=== PATIENT | female | born 1945 | race Caucasian/White ===

== ENCOUNTER → 2017-04-05 11:34 | Outpatient (CLI) | payer MEDICARE, BC, SELFPAY ==
[2017-04-05 12:56] LABS: Absolute Lymphocyte Count 4.33 X10^3/ul (0.83-4.51); Absolute Neutrophil Count 7.5 X10^3/uL (2.0-7.7); Basophil# 0.29 X10^3/uL; Basophil% 2.1 % (0-1); Eosinophil# 0.41 X10^3/uL; Hematocrit 44.7 % (37-47); Hemoglobin 14.8 g/dl (12.0-15.0); Lymphocyte # 4.33 X10^3/ul (4.0); Mean Corp Hgb Conc 33.1 g/gl (32-36); Mean Corpuscular Hgb 29.1 pg (27.0-32.0); Mean Corpuscular Volume 87.8 fL (81-99); Monocyte# 0.99 X10^3/uL; Monocyte% 7.3 % (0-10); Neutrophil # 7.46 X10^3/uL (2.7-7.7); Neutrophil % 55.3 % (47-70); Platelet Count 268 K/mm3 (150-450); RBC Distribution Width CV 16.1 % (11.6-14.6); RBC Distribution Width SD 51.4 fl (35.1-43.9); Red Blood Count 5.09 M/mm3 (4.2-5.4); White Blood Count 13.5 K/mm3 (4.4-11.0)
[2017-04-05 12:57] LABS: POSITIVE COUNT NO; POSITIVE DIFFERENTIAL NO; POSITIVE MORPHOLOGY NO
[2017-04-05 13:23] LABS: Vitamin D,25 Hydroxy 8.4 ng/mL (19.95-100.01)
[2017-04-05 13:24] LABS: ALB/GLOB Ratio 0.9 RATIO (0.9-2.4); AST(SGOT) 29 U/L (15-37); Alanine Aminotransfer ALT/SGPT 29 U/L (13-56); Albumin, Serum 3.8 g/dL (3.2-5.0); Alkaline Phosphatase 68 U/L (45-117); Anion Gap 8 (5-15); BUN 15 mg/dL (7-18); BUN/Creat Ratio 18.4 RATIO (10-20); Calcium,Total 9.3 mg/dL (8.5-10.1); Chloride 106 mmol/L (98-107); Creatinine, Serum 0.81 mg/dL (0.55-1.02); EST Glomerular Filtration Rate 73 mL/min (>60); Est Glom Filt Rate - Afr Amer 89 mL/min (>60); Globulin 4.2 g/dL (2.2-4.2); Glucose 138 mg/dL (74-106); Sodium Level 140 mmol/L (136-145); Thyroid Stim Hormone (TSH) 0.91 uIU/mL (0.358-3.74)
== END ==
PROVIDERS: Family Provider Family Medicine Geriatric Medicine; PCP Family Medicine Geriatric Medicine; Visit Provider Family Medicine Geriatric Medicine
DX: E11.9 Type 2 diabetes mellitus without complications (principal); E55.9 Vitamin D deficiency, unspecified; I10 Essential (primary) hypertension
CPT/HCPCS: 36415; 80053; 82306; 84443; 85025

== ENCOUNTER → 2017-06-02 16:15 | Outpatient (CLI) | payer MEDICARE, BC, SELFPAY ==
--- NOTE | 2017-06-02 16:17 | RAD_ITS ---
STUDY: X-RAY - LEFT FOOT CLINICAL: Pain, large plantar wart. TECHNIQUE: 3 view(s) of the foot. COMPARISON: None. FINDINGS: There is a small posterior calcaneal enthesophyte. Normal visualized subtalar, talonavicular, calcaneocuboid, tarsal and tarsometatarsal articulations. Normal metatarsi. Normal metatarsophalangeal joint of the great toe. Normal tibial and fibular sesamoid bones. Normal interphalangeal joint of the great toe. Normal phalanges of the great toe. Normal second through fifth metatarsophalangeal joints. Normal interphalangeal joints and phalanges of the lesser toes. There is a small soft tissue calcification at the lateral aspect of the fifth middle phalanx on the oblique view. RAD/Foot min 3 Views IMPRESSION: Small soft tissue calcification of the distal lateral forefoot. Small posterior calcaneal enthesophyte. Electronically Signed: Balbir Plata MD at 15:05 EDT Tel , Service support ,
== END ==
PROVIDERS: Family Provider Family Medicine Geriatric Medicine; PCP Family Medicine Geriatric Medicine; Visit Provider Family Medicine Geriatric Medicine
DX: M79.672 Pain in left foot (principal); B07.0 Plantar wart
CPT/HCPCS: 73630

== ENCOUNTER → 2017-07-07 11:40 | Outpatient (CLI) | payer MEDICARE, BC, SELFPAY | PROVIDERS: Family Provider Family Medicine Geriatric Medicine; PCP Family Medicine Geriatric Medicine; Visit Provider Family Medicine Geriatric Medicine | DX: E11.9 Type 2 diabetes mellitus without complications (principal); E55.9 Vitamin D deficiency, unspecified; I10 Essential (primary) hypertension ==

== ENCOUNTER → 2017-07-08 13:14 | Outpatient (CLI) | payer MEDICARE, BC, SELFPAY ==
[2017-07-08 16:54] LABS: Absolute Lymphocyte Count 3.38 X10^3/ul (0.83-4.51); Absolute Neutrophil Count 6.4 X10^3/uL (2.0-7.7); Basophil# 0.08 X10^3/uL; Basophil% 0.7 % (0-1); Eosinophil# 0.24 X10^3/uL; Eosinophils% 2.2 % (0-5); Hematocrit 41.2 % (37-47); Hemoglobin 13.7 g/dl (12.0-15.0); Lymphocyte # 3.38 X10^3/ul (4.0); Lymphocyte % 30.6 % (19-41); Mean Corp Hgb Conc 33.3 g/gl (32-36); Mean Corpuscular Hgb 29.8 pg (27.0-32.0); Mean Corpuscular Volume 89.6 fL (81-99); Mean Platelet Vol. 10.5 fl (6.2-12.0); Monocyte# 0.85 X10^3/uL; Monocyte% 7.7 % (0-10); Neutrophil # 6.42 X10^3/uL (2.7-7.7); POSITIVE COUNT NO; POSITIVE DIFFERENTIAL NO; POSITIVE MORPHOLOGY NO; Platelet Count 269 K/mm3 (150-450); RBC Distribution Width CV 16.2 % (11.6-14.6); RBC Distribution Width SD 52.3 fl (35.1-43.9); White Blood Count 11.1 K/mm3 (4.4-11.0)
[2017-07-08 17:15] LABS: ALB/GLOB Ratio 0.9 RATIO (0.9-2.4); AST(SGOT) 26 U/L (15-37); Alanine Aminotransfer ALT/SGPT 33 U/L (13-56); Albumin, Serum 3.8 g/dL (3.2-5.0); Alkaline Phosphatase 75 U/L (45-117); Anion Gap 10 (5-15); BUN 19 mg/dL (7-18); Calcium,Total 9.8 mg/dL (8.5-10.1); Chloride 99 mmol/L (98-107); Creatinine, Serum 1.12 mg/dL (0.55-1.02); EST Glomerular Filtration Rate 51 mL/min (>60); Est Glom Filt Rate - Afr Amer 61 mL/min (>60); Globulin 4.1 g/dL (2.2-4.2); Glucose 449 mg/dL (74-106); Potassium 4.4 mmol/L (3.5-5.1); Protein, Total 7.9 g/dL (6.4-8.2); Sodium Level 134 mmol/L (136-145); Thyroid Stim Hormone (TSH) 0.74 uIU/mL (0.358-3.74)
[2017-07-09 10:16] LABS: Vitamin D,25 Hydroxy 48.2 ng/mL (29.95-100.01)
== END ==
PROVIDERS: Family Provider Family Medicine Geriatric Medicine; PCP Family Medicine Geriatric Medicine; Visit Provider Family Medicine Geriatric Medicine
DX: E11.9 Type 2 diabetes mellitus without complications (principal); E55.9 Vitamin D deficiency, unspecified; I10 Essential (primary) hypertension
CPT/HCPCS: 36415; 80053; 82306; 84443; 85025

== ENCOUNTER → 2017-08-12 11:55 | Outpatient (CLI) | payer MEDICARE, BC, SELFPAY ==
[2017-08-12 12:56] LABS: Basophil% 0.7 % (0-1); Eosinophil# 0.23 X10^3/uL; Eosinophils% 1.7 % (0-5); Hematocrit 43.8 % (37-47); Hemoglobin 14.6 g/dl (12.0-15.0); Lymphocyte % 32.5 % (19-41); Mean Corp Hgb Conc 33.3 g/gl (32-36); Mean Corpuscular Hgb 30.2 pg (27.0-32.0); Mean Corpuscular Volume 90.7 fL (81-99); Mean Platelet Vol. 10.1 fl (6.2-12.0); Monocyte# 0.78 X10^3/uL; Monocyte% 5.8 % (0-10); Platelet Count 264 K/mm3 (150-450); RBC Distribution Width SD 53.1 fl (35.1-43.9); Red Blood Count 4.83 M/mm3 (4.2-5.4); White Blood Count 13.6 K/mm3 (4.4-11.0)
[2017-08-12 12:57] LABS: POSITIVE COUNT NO; POSITIVE DIFFERENTIAL NO; POSITIVE MORPHOLOGY NO
[2017-08-12 13:04] LABS: AST(SGOT) 27 U/L (15-37); Alanine Aminotransfer ALT/SGPT 35 U/L (13-56); Albumin, Serum 3.8 g/dL (3.2-5.0); Alkaline Phosphatase 72 U/L (45-117); Anion Gap 8 (5-15); BUN 17 mg/dL (7-18); BUN/Creat Ratio 16.2 RATIO (10-20); Calcium,Total 9.7 mg/dL (8.5-10.1); Chloride 103 mmol/L (98-107); Creatinine, Serum 1.05 mg/dL (0.55-1.02); EST Glomerular Filtration Rate 55 mL/min (>60); Est Glom Filt Rate - Afr Amer 66 mL/min (>60); Glucose 257 mg/dL (74-106); Potassium 4.2 mmol/L (3.5-5.1); Protein, Total 7.8 g/dL (6.4-8.2); Sodium Level 136 mmol/L (136-145)
== END ==
PROVIDERS: Family Provider Family Medicine Geriatric Medicine; PCP Family Medicine Geriatric Medicine; Visit Provider Family Medicine Geriatric Medicine
DX: E86.0 Dehydration (principal)
CPT/HCPCS: 36415; 80053; 85025

== ENCOUNTER → 2017-10-07 13:51 | Outpatient (CLI) | payer MEDICARE, BC, SELFPAY ==
[2017-10-07 17:11] LABS: ALB/GLOB Ratio 0.9 RATIO (0.9-2.4); AST(SGOT) 29 U/L (15-37); Alanine Aminotransfer ALT/SGPT 36 U/L (13-56); Albumin, Serum 3.6 g/dL (3.2-5.0); Alkaline Phosphatase 73 U/L (45-117); Anion Gap 13 (5-15); BUN 12 mg/dL (7-18); BUN/Creat Ratio 10.3 RATIO (10-20); Calcium,Total 9.6 mg/dL (8.5-10.1); Chloride 102 mmol/L (98-107); Creatinine, Serum 1.16 mg/dL (0.55-1.02); EST Glomerular Filtration Rate 49 mL/min (>60); Est Glom Filt Rate - Afr Amer 59 mL/min (>60); Globulin 3.9 g/dL (2.2-4.2); Glucose 318 mg/dL (74-106); Potassium 3.8 mmol/L (3.5-5.1); Protein, Total 7.5 g/dL (6.4-8.2); Sodium Level 140 mmol/L (136-145); Thyroid Stim Hormone (TSH) 0.86 uIU/mL (0.358-3.74)
[2017-10-07 17:52] LABS: Absolute Lymphocyte Count 4.03 X10^3/ul (0.83-4.51); Absolute Neutrophil Count 8.4 X10^3/uL (2.0-7.7); Basophil% 0.7 % (0-1); Eosinophil# 0.29 X10^3/uL; Eosinophils% 2.1 % (0-5); Hemoglobin 14.4 g/dl (12.0-15.0); Lymphocyte # 4.03 X10^3/ul (4.0); Lymphocyte % 29.4 % (19-41); Mean Corp Hgb Conc 32.7 g/gl (32-36); Mean Corpuscular Hgb 29.7 pg (27.0-32.0); Mean Corpuscular Volume 90.7 fL (81-99); Mean Platelet Vol. 10.4 fl (6.2-12.0); Monocyte# 0.89 X10^3/uL; Monocyte% 6.5 % (0-10); Neutrophil # 8.39 X10^3/uL (2.7-7.7); Neutrophil % 61.2 % (47-70); Platelet Count 257 K/mm3 (150-450); RBC Distribution Width CV 15.4 % (11.6-14.6); RBC Distribution Width SD 51.1 fl (35.1-43.9); Red Blood Count 4.85 M/mm3 (4.2-5.4); White Blood Count 13.7 K/mm3 (4.4-11.0)
[2017-10-07 17:58] LABS: Differential Indicated SCAN CRITERIA MET; POSITIVE COUNT YES; POSITIVE DIFFERENTIAL NO; POSITIVE MORPHOLOGY YES
[2017-10-07 18:56] LABS: Differential Comment SCANNED
[2017-10-08 10:38] LABS: Vitamin D,25 Hydroxy 24.6 ng/mL (29.95-100.01)
== END ==
PROVIDERS: Family Provider Family Medicine Geriatric Medicine; PCP Family Medicine Geriatric Medicine; Visit Provider Family Medicine Geriatric Medicine
DX: E11.9 Type 2 diabetes mellitus without complications (principal); E55.9 Vitamin D deficiency, unspecified; I10 Essential (primary) hypertension; Z13.89 Encounter for screening for other disorder
CPT/HCPCS: 36415; 80053; 82306; 84443; 85025; 86803

== ENCOUNTER → 2017-11-11 12:32 | Outpatient (CLI) | payer MEDICARE, BC, SELFPAY ==
--- NOTE | 2017-11-11 12:35 | BI_ITS ---
MAMMOGRAPHY - BILATERAL SCREENING REASON FOR EXAM: Female, 72 years old. Routine annual screening examination. PERTINENT HISTORY: Non-contributory. Remote left stereotactic breast biopsy. TECHNIQUE: Digital bilateral breast mo (3D mammographic acquisition) in the CC and MLO projections. 2-D mediolateral oblique (MLO) and craniocaudad (CC) views of both breasts were obtained. CAD: Full Field Digital Mammography with Computer Added Detection was performed. COMPARISON: Comparison is made with prior study dated October 21, 2016 and October 02, 2015. FINDINGS: Breast Composition: The breasts are heterogeneously dense, which may obscure small masses. There are no dominant masses or suspicious calcifications. A tissue clip marker is once again seen in the upper deep slightly medial portion of the left breast. No other significant abnormalities are identified. There has been no significant change since the prior study. BI/SCREENING MAMM (CAD), BILAT IMPRESSION: Stable bilateral screening mammogram. Yearly follow-up mammogram recommended. (A) ASSESSMENT CATEGORY: BIRADS Category 2: Benign. A letter regarding these results will be sent to the patient by the facility within 30 days. Approximately 10% of breast cancers are not detected by mammography. A normal mammogram should not delay biopsy of a clinically suspicious abnormality. [id number] Electronically Signed: Luca Gupta MD at 14:41 EDT Tel [phone], Service support ,
== END ==
PROVIDERS: Family Provider Family Medicine Geriatric Medicine; PCP Family Medicine Geriatric Medicine; Visit Provider Family Medicine Geriatric Medicine
DX: Z12.31 Encounter for screening mammogram for malignant neoplasm of breast (principal)
CPT/HCPCS: 77063; 77067

== ENCOUNTER → 2017-12-23 14:28 | Outpatient (CLI) | payer MEDICARE, BC, SELFPAY ==
[2017-12-23 17:18] LABS: Absolute Lymphocyte Count 4.08 X10^3/ul (0.83-4.51); Absolute Neutrophil Count 7.9 X10^3/uL (2.0-7.7); Basophil# 0.07 X10^3/uL; Basophil% 0.5 % (0-1); Eosinophil# 0.17 X10^3/uL; Eosinophils% 1.3 % (0-5); Hemoglobin 14.4 g/dl (12.0-15.0); Lymphocyte # 4.08 X10^3/ul (4.0); Lymphocyte % 30.7 % (19-41); Mean Corpuscular Volume 90.5 fL (81-99); Mean Platelet Vol. 10.7 fl (6.2-12.0); Monocyte# 0.99 X10^3/uL; Monocyte% 7.5 % (0-10); Neutrophil # 7.93 X10^3/uL (2.7-7.7); Neutrophil % 59.7 % (47-70); Platelet Count 265 K/mm3 (150-450); RBC Distribution Width CV 16.3 % (11.6-14.6); RBC Distribution Width SD 53.5 fl (35.1-43.9); Red Blood Count 4.97 M/mm3 (4.2-5.4); White Blood Count 13.3 K/mm3 (4.4-11.0)
[2017-12-23 17:19] LABS: POSITIVE COUNT NO; POSITIVE DIFFERENTIAL NO; POSITIVE MORPHOLOGY NO
[2017-12-23 17:43] LABS: ALB/GLOB Ratio 0.9 RATIO (0.9-2.4); AST(SGOT) 31 U/L (15-37); Alanine Aminotransfer ALT/SGPT 38 U/L (13-56); Albumin, Serum 3.8 g/dL (3.2-5.0); Alkaline Phosphatase 81 U/L (45-117); Anion Gap 10 (5-15); BUN 15 mg/dL (7-18); Calcium,Total 9.8 mg/dL (8.5-10.1); Chloride 99 mmol/L (98-107); Creatinine, Serum 1.15 mg/dL (0.55-1.02); EST Glomerular Filtration Rate 49 mL/min (>60); Est Glom Filt Rate - Afr Amer 59 mL/min (>60); Globulin 4.2 g/dL (2.2-4.2); Glucose 361 mg/dL (74-106); Potassium 3.9 mmol/L (3.5-5.1); Sodium Level 137 mmol/L (136-145); Thyroid Stim Hormone (TSH) 1.13 uIU/mL (0.358-3.74)
[2017-12-23 17:44] LABS: Vitamin D,25 Hydroxy 34.6 ng/mL (29.95-100.01)
== END ==
PROVIDERS: Family Provider Family Medicine Geriatric Medicine; PCP Family Medicine Geriatric Medicine; Visit Provider Family Medicine Geriatric Medicine
DX: E11.9 Type 2 diabetes mellitus without complications (principal); E55.9 Vitamin D deficiency, unspecified; I10 Essential (primary) hypertension
CPT/HCPCS: 36415; 80053; 82306; 84443; 85025

== ENCOUNTER → 2018-03-31 15:08 | Outpatient (CLI) | payer MEDICARE, BC, SELFPAY ==
[2018-03-31 16:59] LABS: Absolute Neutrophil Count 6.7 X10^3/uL (2.0-7.7); Basophil% 0.9 % (0-1); Eosinophil# 0.21 X10^3/uL; Eosinophils% 1.8 % (0-5); Hematocrit 46.6 % (37-47); Hemoglobin 14.9 g/dl (12.0-15.0); Lymphocyte % 32.5 % (19-41); Mean Corpuscular Hgb 28.8 pg (27.0-32.0); Mean Platelet Vol. 10.9 fl (6.2-12.0); Monocyte# 0.63 X10^3/uL; Monocyte% 5.5 % (0-10); Neutrophil % 58.9 % (47-70); POSITIVE COUNT NO; POSITIVE DIFFERENTIAL NO; POSITIVE MORPHOLOGY NO; Platelet Count 283 K/mm3 (150-450); RBC Distribution Width SD 52.3 fl (35.1-43.9); Red Blood Count 5.18 M/mm3 (4.2-5.4); White Blood Count 11.4 K/mm3 (4.4-11.0)
[2018-03-31 17:14] LABS: Vitamin D,25 Hydroxy 33.3 ng/mL (29.95-100.01)
[2018-03-31 17:29] LABS: ALB/GLOB Ratio 0.9 RATIO (0.9-2.4); AST(SGOT) 27 U/L (15-37); Alanine Aminotransfer ALT/SGPT 35 U/L (13-56); Albumin, Serum 3.9 g/dL (3.2-5.0); Alkaline Phosphatase 73 U/L (45-117); Anion Gap 13 (5-15); BUN 13 mg/dL (7-18); BUN/Creat Ratio 14.9 RATIO (10-20); Calcium,Total 9.9 mg/dL (8.5-10.1); Chloride 103 mmol/L (98-107); Creatinine, Serum 0.88 mg/dL (0.55-1.02); EST Glomerular Filtration Rate 67 mL/min (>60); Est Glom Filt Rate - Afr Amer 81 mL/min (>60); Globulin 4.3 g/dL (2.2-4.2); Glucose 255 mg/dL (74-106); Potassium 3.8 mmol/L (3.5-5.1); Protein, Total 8.2 g/dL (6.4-8.2); Sodium Level 138 mmol/L (136-145); Thyroid Stim Hormone (TSH) 1.15 uIU/mL (0.358-3.74)
== END ==
PROVIDERS: Family Provider Family Medicine Geriatric Medicine; PCP Family Medicine Geriatric Medicine; Visit Provider Family Medicine Geriatric Medicine
DX: E11.9 Type 2 diabetes mellitus without complications (principal); E55.9 Vitamin D deficiency, unspecified; I10 Essential (primary) hypertension
CPT/HCPCS: 36415; 80053; 82306; 84443; 85025

== ENCOUNTER → 2018-04-21 10:35 | Outpatient (CLI) | payer MEDICARE, BC, SELFPAY ==
--- NOTE | 2018-04-21 10:41 | RAD_ITS ---
STUDY: X-RAY CHEST REASON FOR EXAM: Female, 72 years old. 3 day history of dry cough and fever. TECHNIQUE: PA and lateral views of the chest. COMPARISON: Comparison is made with prior study dated February 11, 2011. FINDINGS: Since prior study, there has been progressive increased markings at the right lung base suggestive of a superimposed infiltration on chronic bibasilar scarring. Faint infiltrate is also seen in the right upper lobe. There is no demonstrated pleural abnormality. Normal size heart. Normal mediastinum and new. Normal visualized pulmonary arteries. There is atherosclerotic calcification of the aortic arch with tortuosity. There is a mild dextroscoliosis of the thoracic spine. Normal visualized ribs, clavicles, and shoulders. There is no demonstrated abnormality of the visualized soft tissue structures of the upper abdomen. RAD/Chest PA and Lateral IMPRESSION: Findings in keeping with a right lower lobe and right upper lobe infiltrates superimposed on chronic bibasilar scarring. Electronically Signed: Luca Gupta, at 11:28 EST , Service support ,
== END ==
PROVIDERS: Family Provider Family Medicine Geriatric Medicine; PCP Family Medicine Geriatric Medicine; Referring Provider Family Medicine Geriatric Medicine; Visit Provider Family Medicine Geriatric Medicine
DX: R05 Cough (principal)
CPT/HCPCS: 71046

== ENCOUNTER → 2018-04-21 11:10 | Outpatient (CLI) | payer MEDICARE, BC, SELFPAY ==
[2018-04-21] MEDS: 0.9% Normal Saline 1,000 ML 999 ML IV ×3 (11:29→13:48)
[2018-04-21 11:30] VITALS: BP 76/58; PULSE 112; RESP 18; TEMP 36.9; O2SAT 92; BMI 25.7
[2018-04-21 13:46] VITALS: BP 89/59; PULSE 105; RESP 18; TEMP 37.8
[2018-04-21 16:54] LABS: Absolute Lymphocyte Count 1.02 X10^3/ul (0.83-4.51); Absolute Neutrophil Count 11.9 X10^3/uL (2.0-7.7); Basophil# 0.04 X10^3/uL; Basophil% 0.3 % (0-1); Hemoglobin 15.1 g/dl (12.0-15.0); Lymphocyte # 1.02 X10^3/ul (4.0); Lymphocyte % 7.2 % (19-41); Mean Corp Hgb Conc 32.8 g/gl (32-36); Mean Corpuscular Hgb 28.9 pg (27.0-32.0); Mean Platelet Vol. 10.9 fl (6.2-12.0); Monocyte# 1.23 X10^3/uL; Monocyte% 8.6 % (0-10); Neutrophil # 11.93 X10^3/uL (2.7-7.7); Neutrophil % 83.7 % (47-70); Platelet Count 217 K/mm3 (150-450); RBC Distribution Width CV 16.6 % (11.6-14.6); RBC Distribution Width SD 52.6 fl (35.1-43.9); Red Blood Count 5.23 M/mm3 (4.2-5.4); White Blood Count 14.3 K/mm3 (4.4-11.0)
[2018-04-21 17:12] LABS: Anion Gap 16 (5-15); BUN 18 mg/dL (7-18); BUN/Creat Ratio 16.4 RATIO (10-20); Calcium,Total 9.5 mg/dL (8.5-10.1); Chloride 96 mmol/L (98-107); EST Glomerular Filtration Rate 52 mL/min (>60); Est Glom Filt Rate - Afr Amer 63 mL/min (>60); Estimated Creatinine Clearance 37.68 ml/min; Glucose 271 mg/dL (74-106); Potassium 3.8 mmol/L (3.5-5.1); Sodium Level 129 mmol/L (136-145)
[2018-04-21 18:03] LABS: POSITIVE COUNT NO; POSITIVE DIFFERENTIAL NO; POSITIVE MORPHOLOGY NO
== END ==
PROVIDERS: Family Provider Family Medicine Geriatric Medicine; PCP Family Medicine Geriatric Medicine; Referring Provider Family Medicine Geriatric Medicine; Visit Provider Family Medicine Geriatric Medicine
DX: E86.0 Dehydration (principal); R50.9 Fever, unspecified; R05 Cough
CPT/HCPCS: 96360; 96361 ×2; 36415; 71046; 80048; 85025; J7030; A4216

== ENCOUNTER 2018-04-22 09:32 | Inpatient (IN) | payer MEDICARE, BC, SELFPAY ==
[2018-04-21 11:30] VITALS: BMI 25.7
[2018-04-22] VITALS (17 sets, daily range): BP systolic 80–137; BP diastolic 56–92; PULSE 100–128; RESP 18–27; TEMP 37–39; O2SAT 87–99; BMI 27.6; BMI 30.3
--- NOTE | 2018-04-22 09:59 | RAD_ITS ---
STUDY: X-RAY CHEST REASON FOR EXAM: Female, 72 years old. Known pneumonia. Progressive fever. TECHNIQUE: Single AP portable view of the chest. COMPARISON: Comparison is made with prior study dated April 21, 2018. FINDINGS: EKG electrodes are seen. Since prior study, there has been progressive bilateral patchy infiltrates in both lungs worse in the right upper and right lower lobes. There is no demonstrated pleural abnormality. Normal size heart. Normal mediastinum and new. Normal visualized pulmonary arteries. There is atherosclerotic calcification of the aortic arch with tortuosity. There are diffuse degenerative changes of the visualized thoracic spine. Normal visualized ribs, clavicles, and shoulders. There is no demonstrated abnormality of the visualized soft tissue structures of the upper abdomen. RAD/Chest 1 View (Portable) IMPRESSION: Progressive bilateral pulmonary infiltrates worse in the right hemithorax. Electronically Signed: Luca Gupta, at 10:31 EST , Service support ,
--- NOTE | 2018-04-22 09:59 | EKG12_ITS ---
Test Reason : GENERAL ILLNESS Blood Pressure : / mmHG Vent. Rate : 120 BPM Atrial Rate : 120 BPM P-R Int : 164 ms QRS Dur : 084 ms QT Int : 322 ms P-R-T Axes : 073 065 060 degrees QTc Int : 455 ms Sinus tachycardia Possible Left atrial enlargement Borderline ECG Confirmed by ALYSON WILLIAMSON, AMARILIS ([id number]), market editor KENY ROTH ([id number] on 04/26/2018 9:48:40 AM Referred By: BB Confirmed By:AMARILIS SHIELDS MD
--- NOTE | 2018-04-22 10:02 | ED.VIS.GEN ---
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 no chest pain. Narrative: Patient was diagnosed with influenza and started on Tamiflu yesterday, she also had a dose today to make her third dose. She also had a chest x-ray yesterday showing pneumonia and so she had a an injection of Rocephin as well as Kenalog in the office. Today she is feeling worse and more short of breath. Has no history of COPD or heart problems, does not wear oxygen at home. States she was given a couple liters of IV fluid yesterday in the office as well. - Past Medical History (1) Hyperlipidemia Status: Chronic (2) Hypertension Status: Chronic (3) Type 2 diabetes mellitus Status: Chronic Past Medical History - Allergies and Home Meds Allergies/Adverse Reactions: Allergies No Known Allergies Allergy (Verified 04/21/18 11:18) Primary Care Physician: Tim Darden Chi, MD [Primary Care Provider] - Lives: - - at home Smoking Status: Unknown if ever smoked - not currently Drugs: None Review of Systems General: Reports: Chills, Fever, Malaise. Denies: Sweats Eyes: Denies: Visual changes - bilaterally, Diplopia ENT: Denies: Rhinorrhea, Sore throat Cardiovascular: Denies: Chest pain, Palpitations Respiratory: Reports: Dyspnea, Cough, Dyspnea on exertion. Denies: Sputum, Orthopnea Gastrointestinal: Denies: Abdominal pain, Nausea, Vomiting, Diarrhea, Melena, Hematochezia Genitourinary: Denies: Dysuria, Hematuria, Frequency Musculoskeletal: Reports: Myalgias. Denies: Back pain Skin: Denies: Rash, Abscess, Wounds Neurological: Reports: Headache. Denies: Weakness, Numbness Physical Exam Vital Signs/Narrative: Vital Signs Temp Pulse Resp BP Pulse Ox 04/22/18 09:33 101.5 F H 121 H 26 H 80/59 L 94 Inital Vital Signs reviewed: Yes General: Well nourished, Well developed, No Acute Distress - but appears malaised Head: Normocephalic, Atraumatic Eyes: Perrl, EOMI ENT: Moist mucous membranes, No rhinorrhea. Negative for: Sinus tenderness Neck: Supple, Nontender, No lymphadenopathy Cardiovascular: Regular rate, Regular rhythm, No murmurs, Tachycardia Respiratory: No distress - but tachypneic, Chest nontender, Wheezing - slight end-expiratory, Diminished - right base Abdomen: Soft, Nontender, Nondistended, Normal bowel sounds Back: Nontender, Normal Inspection Extremities: Nontender, No edema Skin: Normal color, No rash Neurological: Alert, Oriented x3, Cranial nerves II-XII grossly intact, Normal Strength, Normal Sensation Psychological: Normal affect, Normal Mood Diagnostic/Tx/Re-eval Impressions Chest X-Ray 04/22/18 09:59 IMPRESSION: Progressive bilateral pulmonary infiltrates worse in the right hemithorax. Electronically Signed: Luca Gupta, at 10:31 EST , Service support , 04/22/18 09:59 Chest 1 View (Portable) [RAD] Stat Laboratory Results 04/22/18 04/22/18 04/22/18 09:48 09:48 09:48 WBC 13.8 H RBC 4.70 Hgb 13.5 Hct 40.8 MCV 86.8 MCH 28.7 MCHC 33.1 RDW 16.1 H RDW Differential 51.1 H Plt Count 196 MPV 10.5 Immature Gran % (Auto) 0.200 Neut % (Auto) 86.2 H Lymph % (Auto) 7.4 L [place] % (Auto) 6.0 Eos % (Auto) 0.0 Baso % (Auto) 0.2 Absolute Neuts (auto) 11.9 H Absolute Lymphs (auto) 1.02 Total Counted Not Reportable PT 14.1 INR 1.1 APTT 32.8 Sodium 131 L Potassium 3.3 L Chloride 97 L Carbon Dioxide 23.0 Anion Gap 11 BUN 12 Creatinine 0.89 Estim Creat Clear Calc 42.48 Est GFR (MDRD) Af Amer 80 Est GFR (MDRD) Non-Af 66 BUN/Creatinine Ratio 13.5 Glucose 228 H Lactic Acid Calcium 8.4 L Total Bilirubin 0.80 AST 60 H ALT 36 Alkaline Phosphatase 65 Troponin I 0.043 Total Protein 7.5 Albumin 3.1 L Globulin 4.4 H Albumin/Globulin Ratio 0.7 L 04/22/18 09:48 WBC RBC Hgb Hct MCV MCH MCHC RDW RDW Differential Plt Count MPV Immature Gran % (Auto) Neut % (Auto) Lymph % (Auto) [place] % (Auto) Eos % (Auto) Baso % (Auto) Absolute Neuts (auto) Absolute Lymphs (auto) Total Counted PT INR APTT Sodium Potassium Chloride Carbon Dioxide Anion Gap BUN Creatinine Estim Creat Clear Calc Est GFR (MDRD) Af Amer Est GFR (MDRD) Non-Af BUN/Creatinine Ratio Glucose Lactic Acid 1.4 Calcium Total Bilirubin AST ALT Alkaline Phosphatase Troponin I Total Protein Albumin Globulin Albumin/Globulin Ratio - Rhythm Strip Rhythm Strip: Sinus Tach Rate: 120 Ectopy: None - EKG Initial EKG Interpretation: No Acute Injury Pattern, Sinus Tachycardia - Medical Decision Making Patient has bilateral infiltrates on chest x-ray, she previously had a positive influenza swab, she is breathing a little better after nebulizer treatment but still having some dyspnea. She is stable and does not need mechanical ventilation or ICU at this time. Her blood pressure is responding IV fluids, prior to the end of a 30 cc/kg bolus she has a blood pressure of 98/61. She states a systolic of 80-90 is normal for her. Initially, she was in the 70s. Her lactate is within normal limits. Just after cultures were drawn, Rocephin and azithromycin were immediately ordered. She has already had her Tamiflu this morning. Will admit for further treatment and evaluation. Discussed with Dr. Sanchez, prefers PCU. - Critical Care Time Critical care time (excluding procedures): 30-74 minutes - 32 min, Including time spent:, Discussing w/Patient &/or Family/Tunneller, Discussing w/Consultants, Arranging Admission or Transfer, Performing Direct Patient Care at Bedside - VS treatment at bedside ED Disposition - Plan for ED Patient: Disposition: Acute Care Hospital [facility] Diagnosis: Influenzal pneumonia, Sepsis, Hyperglycemia due to type 2 diabetes mellitus Referrals: Tim Darden Chi, MD [Primary Care Provider] -
--- NOTE | 2018-04-22 10:07 | ED.DCSUM_ITS ---
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 no chest pain. Narrative: Patient was diagnosed with influenza and started on Tamiflu yesterday, she also had a dose today to make her third dose. She also had a chest x-ray yesterday showing pneumonia and so she had a an injection of Rocephin as well as Kenalog in the office. Today she is feeling worse and more short of breath. Has no history of COPD or heart problems, does not wear oxygen at home. States she was given a couple liters of IV fluid yesterday in the office as well. - Past Medical History (1) Hyperlipidemia Status: Chronic (2) Hypertension Status: Chronic (3) Type 2 diabetes mellitus Status: Chronic Past Medical History - Allergies and Home Meds Allergies/Adverse Reactions: Allergies No Known Allergies Allergy (Verified 04/21/18 11:18) Primary Care Physician: Tim Darden Chi, MD [Primary Care Provider] - Lives: - - at home Smoking Status: Unknown if ever smoked - not currently Drugs: None Review of Systems General: Reports: Chills, Fever, Malaise. Denies: Sweats Eyes: Denies: Visual changes - bilaterally, Diplopia ENT: Denies: Rhinorrhea, Sore throat Cardiovascular: Denies: Chest pain, Palpitations Respiratory: Reports: Dyspnea, Cough, Dyspnea on exertion. Denies: Sputum, Orthopnea Gastrointestinal: Denies: Abdominal pain, Nausea, Vomiting, Diarrhea, Melena, Hematochezia Genitourinary: Denies: Dysuria, Hematuria, Frequency Musculoskeletal: Reports: Myalgias. Denies: Back pain Skin: Denies: Rash, Abscess, Wounds Neurological: Reports: Headache. Denies: Weakness, Numbness Physical Exam Vital Signs/Narrative: Vital Signs Temp Pulse Resp BP Pulse Ox 04/22/18 09:33 101.5 F H 121 H 26 H 80/59 L 94 Inital Vital Signs reviewed: Yes General: Well nourished, Well developed, No Acute Distress - but appears malaised Head: Normocephalic, Atraumatic Eyes: Perrl, EOMI ENT: Moist mucous membranes, No rhinorrhea. Negative for: Sinus tenderness Neck: Supple, Nontender, No lymphadenopathy Cardiovascular: Regular rate, Regular rhythm, No murmurs, Tachycardia Respiratory: No distress - but tachypneic, Chest nontender, Wheezing - slight end-expiratory, Diminished - right base Abdomen: Soft, Nontender, Nondistended, Normal bowel sounds Back: Nontender, Normal Inspection Extremities: Nontender, No edema Skin: Normal color, No rash Neurological: Alert, Oriented x3, Cranial nerves II-XII grossly intact, Normal Strength, Normal Sensation Psychological: Normal affect, Normal Mood Diagnostic/Tx/Re-eval Impressions Chest X-Ray 04/22/18 09:59 IMPRESSION: Progressive bilateral pulmonary infiltrates worse in the right hemithorax. Electronically Signed: Luca Gupta, at 10:31 EST , Service support , 04/22/18 09:59 Chest 1 View (Portable) [RAD] Stat Laboratory Results 04/22/18 04/22/18 04/22/18 09:48 09:48 09:48 WBC 13.8 H RBC 4.70 Hgb 13.5 Hct 40.8 MCV 86.8 MCH 28.7 MCHC 33.1 RDW 16.1 H RDW Differential 51.1 H Plt Count 196 MPV 10.5 Immature Gran % (Auto) 0.200 Neut % (Auto) 86.2 H Lymph % (Auto) 7.4 L [place] % (Auto) 6.0 Eos % (Auto) 0.0 Baso % (Auto) 0.2 Absolute Neuts (auto) 11.9 H Absolute Lymphs (auto) 1.02 Total Counted Not Reportable PT 14.1 INR 1.1 APTT 32.8 Sodium 131 L Potassium 3.3 L Chloride 97 L Carbon Dioxide 23.0 Anion Gap 11 BUN 12 Creatinine 0.89 Estim Creat Clear Calc 42.48 Est GFR (MDRD) Af Amer 80 Est GFR (MDRD) Non-Af 66 BUN/Creatinine Ratio 13.5 Glucose 228 H Lactic Acid Calcium 8.4 L Total Bilirubin 0.80 AST 60 H ALT 36 Alkaline Phosphatase 65 Troponin I 0.043 Total Protein 7.5 Albumin 3.1 L Globulin 4.4 H Albumin/Globulin Ratio 0.7 L 04/22/18 09:48 WBC RBC Hgb Hct MCV MCH MCHC RDW RDW Differential Plt Count MPV Immature Gran % (Auto) Neut % (Auto) Lymph % (Auto) [place] % (Auto) Eos % (Auto) Baso % (Auto) Absolute Neuts (auto) Absolute Lymphs (auto) Total Counted PT INR APTT Sodium Potassium Chloride Carbon Dioxide Anion Gap BUN Creatinine Estim Creat Clear Calc Est GFR (MDRD) Af Amer Est GFR (MDRD) Non-Af BUN/Creatinine Ratio Glucose Lactic Acid 1.4 Calcium Total Bilirubin AST ALT Alkaline Phosphatase Troponin I Total Protein Albumin Globulin Albumin/Globulin Ratio - Rhythm Strip Rhythm Strip: Sinus Tach Rate: 120 Ectopy: None - EKG Initial EKG Interpretation: No Acute Injury Pattern, Sinus Tachycardia - Medical Decision Making Patient has bilateral infiltrates on chest x-ray, she previously had a positive influenza swab, she is breathing a little better after nebulizer treatment but still having some dyspnea. She is stable and does not need mechanical ventilation or ICU at this time. Her blood pressure is responding IV fluids, prior to the end of a 30 cc/kg bolus she has a blood pressure of 98/61. She states a systolic of 80-90 is normal for her. Initially, she was in the 70s. Her lactate is within normal limits. Just after cultures were drawn, Rocephin and azithromycin were immediately ordered. She has already had her Tamiflu this morning. Will admit for further treatment and evaluation. Discussed with Dr. Sanchez, prefers PCU. - Critical Care Time Critical care time (excluding procedures): 30-74 minutes - 32 min, Including time spent:, Discussing w/Patient &/or Family/[employer] Director, Discussing w/Consultants, Arranging Admission or Transfer, Performing Direct Patient Care at Bedside - VS treatment at bedside ED Disposition - Plan for ED Patient: Disposition: Acute Care Hospital [facility] Diagnosis: Influenzal pneumonia, Sepsis, Hyperglycemia due to type 2 diabetes mellitus Referrals: Tim Darden Chi, MD [Primary Care Provider] -
[2018-04-22 10:09] LABS: Absolute Lymphocyte Count 1.02 X10^3/ul (0.83-4.51); Absolute Neutrophil Count 11.9 X10^3/uL (2.0-7.7); Basophil# 0.03 X10^3/uL; Basophil% 0.2 % (0-1); Hematocrit 40.8 % (37-47); Hemoglobin 13.5 g/dl (12.0-15.0); Lymphocyte # 1.02 X10^3/ul (4.0); Lymphocyte % 7.4 % (19-41); Mean Corp Hgb Conc 33.1 g/gl (32-36); Mean Corpuscular Hgb 28.7 pg (27.0-32.0); Mean Corpuscular Volume 86.8 fL (81-99); Mean Platelet Vol. 10.5 fl (6.2-12.0); Monocyte# 0.82 X10^3/uL; Neutrophil # 11.86 X10^3/uL (2.7-7.7); Neutrophil % 86.2 % (47-70); Platelet Count 196 K/mm3 (150-450); RBC Distribution Width CV 16.1 % (11.6-14.6); RBC Distribution Width SD 51.1 fl (35.1-43.9); White Blood Count 13.8 K/mm3 (4.4-11.0)
[2018-04-22 10:13] LABS: International Normalized Ratio 1.1; Partial Thromboplast Time 32.8 Seconds (24.1-36.2); Prothrombin Time (Protime)PT. 14.1 SECONDS (11.7-14.9)
[2018-04-22 10:14] LABS: POSITIVE COUNT NO; POSITIVE DIFFERENTIAL NO; POSITIVE MORPHOLOGY NO
[2018-04-22] MEDS: Albuterol 2.5 MG/3 ML VIAL.NEB. INHALATION ×2 (10:15→19:06)
[2018-04-22 10:24] LABS: Lactic Acid 1.4 mmol/L (0.4-2.0)
[2018-04-22] MEDS: Acetaminophen 500 MG Tablet 1000 MG PO (10:24)
[2018-04-22] MEDS: 0.9% Normal Saline 1,000 ML IV.SOLN. 2000 ML IV (10:25)
[2018-04-22 10:27] LABS: ALB/GLOB Ratio 0.7 RATIO (0.9-2.4); AST(SGOT) 60 U/L (15-37); Alanine Aminotransfer ALT/SGPT 36 U/L (13-56); Albumin, Serum 3.1 g/dL (3.2-5.0); Alkaline Phosphatase 65 U/L (45-117); Anion Gap 11 (5-15); BUN 12 mg/dL (7-18); BUN/Creat Ratio 13.5 RATIO (10-20); Calcium,Total 8.4 mg/dL (8.5-10.1); Chloride 97 mmol/L (98-107); Creatinine, Serum 0.89 mg/dL (0.55-1.02); EST Glomerular Filtration Rate 66 mL/min (>60); Est Glom Filt Rate - Afr Amer 80 mL/min (>60); Estimated Creatinine Clearance 42.48 ml/min; Globulin 4.4 g/dL (2.2-4.2); Glucose 228 mg/dL (74-106); Potassium 3.3 mmol/L (3.5-5.1); Protein, Total 7.5 g/dL (6.4-8.2); Sodium Level 131 mmol/L (136-145)
[2018-04-22] MEDS: Ceftriaxone 1 GM/50 ML BAG IV (10:44)
--- NOTE | 2018-04-22 12:20 | HP.PCM_ITS ---
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 Patient comes in complains of feeling worse and feeling very short of breath. Complains of fever and chills. Vitals in the ED show temperature of 100.3 F, heart rate is 103, blood pressure to a 56, respiratory is 18, SPO2 is 94% on room air. The labs showed RBC count of 13.8, hemoglobin 13.5, platelet 196, INR 1.1, sodium 131, potassium 3.3, chloride 97, bicarbonate 23, BUN 12 creatinine 0.89, glucose 228, troponin 0.043 X-ray showed progressive bilateral pulmonary infiltrates, worse in the right side of chest. Blood cultures taken in the ED are pending. Past Medical History Past Medical History (Chronic Problems): Chronic Problems Hyperlipidemia (Chronic) Hypertension (Chronic) Type 2 diabetes mellitus (Chronic) Allergies No Known Allergies Allergy (Verified 04/21/18 11:18) Home Medications: Ambulatory Orders Medication Instructions Recorded Insulin U-500 [Humulin R U-500 56 units SC BID 04/21/18 ([facility])] Metformin HCl [Glucophage Xr] 1,500 mg PO DAILY 04/21/18 Metoprolol Tartrate [Lopressor 100 mg PO DAILY 04/21/18 (Beta Jennifer)] Rosuvastatin Calcium [Crestor] 40 mg PO QHS 04/21/18 traMADol [Ultram (G)] 50 mg PO BID 04/21/18 Dapagliflozin Propanediol [Farxiga] 10 mg PO DAILY 04/22/18 Ergocalciferol (Vitamin D2) 50,000 unit PO MO 04/22/18 [Vitamin D2] Hyoscyamine Sulfate 0.125 mg PO BID 04/22/18 Lisinopril [Zestril] 10 mg PO DAILY 04/22/18 Omeprazole 20 mg PO DAILY 04/22/18 Surgical History: hysterectomy, - - Cervical laminectomy, hemorrdoidectomy Psychiatric History: No pertinent psych hx 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 Denies: Anorexia, Weight Change Eyes: Denies: Blurred vision, Cataracts, Conjunctivae Inflammation, Double v ision, Pain, Redness, Vision Change HEENT: Denies: Difficulty Hearing, Difficulty Swallowing, Head Aches, Hearing Changes, Sinus Congestion, Sinus Drainage Cardiovascular: Denies: Chest Pain, Claudication, Orthopnea, Palpitations Respiratory: Reports: Cough, Shortness of Breath, Shortness of breath at rest, Shortness of breath upon exertion, Sputum production Gastrointestinal: Denies: Abdominal Pain, Constipation, Hematemesis, Nausea, Vomiting Genitourinary: Denies: Dysuria, Frequency, Incontinence Musculoskeletal: Denies: Joint Pain, Joint stiffness, Joint swelling, Joint Tenderness Skin: Denies: Dryness, Pruritis, Rash, Wounds Neurological: Denies: Difficulty swallowing, Focal weakness, Numbness, Tingling Psychiatric: Denies: Anxiety, Depression, Homicidal Ideations, Suicidal Ideations Hematologic/ Lymphatic: Denies: Easy Bruising, Easy Bleeding VTE Information - Inpt Only VTE Present on Admission: No VTE Pharm Prophylaxis ordered?: Yes Patient Problems: Active and Suspected Problems Influenzal pneumonia (Acute) Sepsis (Acute) Hyperglycemia due to type 2 diabetes mellitus (Acute) - Physical Exam General: Alert, Oriented x3, Cooperative, No apparent distress HEENT: Atraumatic, PERRLA, EOMI, Normocephalic Oral: Moist Mucosa Neck: Supple, No JVD, Negative Carotid Bruits Lungs: Diminished, Rales - at bilateral lung zones, worse on the right, Wheezes Cardiovascular: Regular rate, No murmurs Abdomen: Bowel Sounds Present, Soft, Non Tender Extremities: No edema, Capillary Refill Less than 3 Seconds Skin: No rashes, No breakdown Musculoskeletal: No Tenderness to Palpation of Joints or Extremities Neurological: Cranial nerves II-XII grossly intact Psych/Mental Status: Normal Affect, Appropriate Vital Signs Temp Pulse Resp BP Pulse Ox 100.6 F H 118 H 23 H 98/61 97 04/22/18 11:10 04/22/18 11:10 04/22/18 11:10 04/22/18 11:10 04/22/18 11:10 Oxygen Flow Rate (L/min) 3 Oxygen Delivery Method Nasal Cannula Weight: 66.224 kg Body Mass Index (BMI) 27.6 Laboratory Tests Past 24 Hrs 04/22/18 04/22/18 04/22/18 09:48 09:48 09:48 WBC 13.8 H RBC 4.70 Hgb 13.5 Hct 40.8 MCV 86.8 MCH 28.7 MCHC 33.1 RDW 16.1 H RDW Differential 51.1 H Plt Count 196 MPV 10.5 Immature Gran % (Auto) 0.200 Neut % (Auto) 86.2 H Lymph % (Auto) 7.4 L [place] % (Auto) 6.0 Eos % (Auto) 0.0 Baso % (Auto) 0.2 Absolute Neuts (auto) 11.9 H Absolute Lymphs (auto) 1.02 Total Counted Not Reportable PT 14.1 INR 1.1 APTT 32.8 Sodium 131 L Potassium 3.3 L Chloride 97 L Carbon Dioxide 23.0 Anion Gap 11 BUN 12 Creatinine 0.89 Estim Creat Clear Calc 42.48 Est GFR (MDRD) Af Amer 80 Est GFR (MDRD) Non-Af 66 BUN/Creatinine Ratio 13.5 Glucose 228 H Lactic Acid Calcium 8.4 L Total Bilirubin 0.80 AST 60 H ALT 36 Alkaline Phosphatase 65 Troponin I 0.043 Total Protein 7.5 Albumin 3.1 L Globulin 4.4 H Albumin/Globulin Ratio 0.7 L 04/22/18 09:48 WBC RBC Hgb Hct MCV MCH MCHC RDW RDW Differential Plt Count MPV Immature Gran % (Auto) Neut % (Auto) Lymph % (Auto) [place] % (Auto) Eos % (Auto) Baso % (Auto) Absolute Neuts (auto) Absolute Lymphs (auto) Total Counted PT INR APTT Sodium Potassium Chloride Carbon Dioxide Anion Gap BUN Creatinine Estim Creat Clear Calc Est GFR (MDRD) Af Amer Est GFR (MDRD) Non-Af BUN/Creatinine Ratio Glucose Lactic Acid 1.4 Calcium Total Bilirubin AST ALT Alkaline Phosphatase Troponin I Total Protein Albumin Globulin Albumin/Globulin Ratio Assessment/Plan All Active Problems Influenzal pneumonia (Acute) Sepsis (Acute) Hyperglycemia due to type 2 diabetes mellitus (Acute) 72 year old F with past medical history of hypertension, type II DM was diagnosed with influenza 3 days ago and has started Tamiflu. Patient comes in complains of feeling worse and feeling very short of breath. 1. Sepsis secondary to community-acquired pneumonia, bilateral worsening infiltrates on x-ray, admitting leukocytosis is 13.8 Started on IV ceftriaxone and azithromycin Plan: Admit to PCU, monitor on telemetry, continue IV ceftriaxone and azithromycin, respiratory panel, 2. Recently diagnosed influenza, started on Tamiflu, completed 3 doses, will con tinue Tamiflu and droplet precautions 3. Hypokalemia, replaced, recheck in am 5. Hypertension, controlled, patient runs relatively low, lisinopril and metoprolol, continue to monitor 6. Type 2 DM, on fax ER, Metformin, insulin, will continue to monitor 7. DVT prophylaxis with heparin subcu Code Visit Inpatient E&M: 20144 Init Hosp L3
[2018-04-22] MEDS: traMADol 50 MG Tablet PO ×2 (12:28→22:05)
--- NOTE | 2018-04-22 15:37 | CASEMGMT ---
RN CM Assessment Introduced role of RN CM to patient. Patient is alert, oriented and able to participate in RN CM Assessment. Care providers, pharmacy, and demographics verified. Presentation: Admitted for Sepsis/CAP. CC: Sent by Nely Conte with Influenza and started on Tamiflu, Nely with PNA and received Kenalog, IVF & Rocephin shots, in office yesterday. C/o SOB 84%ra, fever. Not on Home O2. PCP: Dr Tim Darden Specialists: None Preferred Pharmacy: [facility] Insurance: Medicare A&B, [place] Prescription Benefit: Yes LNOK: Sister Cecile Roberts Living Arrangements: Retired, lives alone in a Condo, no steps, Independent with ambulation and ADL's. Transportation: Patient drives, sister Cecile to drive on [place]. DME: Glucometer, No preference on Company. HHC: None, No preference on Agency. SNF: None in past, No preference on Facility. DC PLAN: Home with no anticipated needs identified, possible Home O2. JAMARI Delacruz
[2018-04-22] MEDS: 0.9% Normal Saline 1,000 ML 75 ML IV (16:01)
[2018-04-22] MEDS: Glucerna Shake 120 ML LIQUID PO (17:53)
[2018-04-22] MEDS: Insulin Lispro 100 UNIT/ML INSULN.PEN SQ ×2 (17:53→22:00)
[2018-04-22] MEDS: Acetaminophen 325 MG Tablet 650 MG PO (17:54)
[2018-04-22 18:21] LABS: Bedside Glucose 237 mg/dL (70-110)
[2018-04-22 20:25] LABS: Bacteria 0 SEEN /hpf (None Seen); Mucous, Urine 0 SEEN /hpf (<or=2+); Red Blood Cells-Urine 0 SEEN /hpf (0-5)
[2018-04-22 20:28] LABS: Color, Urine Yellow (Yellow); Glucose, Dipstick 100 mg/dl (Normal); Ketone-Dipstick 5 mg/dl (Negative); Leukocyte Esterase-Dipstick 500 /ul (Negative); Nitrite-Dipstick Negative (Negative); Occult Blood-Urine 150 /ul (Negative); Protein-Dipstick 30 mg/dl (Negative); Urine Bilirubin Dipstick Negative (Negative); Urine Clarity Sl. Cloudy (Clear); Urine Urobilinogen Normal (Normal)
[2018-04-22 20:41] LABS: Squamous Epithelial Cells - UA 5-10 SEEN /hpf (5-10); White Blood Cells 10-25 SEEN /hpf (0-5)
[2018-04-22 20:42] LABS: Transitional Epithelial - Ur 0-5 SEEN /hpf (0-5)
[2018-04-22] MEDS: Atorvastatin Calcium 80 MG Tablet PO (22:00)
[2018-04-22] MEDS: Oseltamivir Phosphate 30 MG Capsule PO (22:00)
[2018-04-22 22:31] LABS: Bedside Glucose 318 mg/dL (70-110)
[2018-04-23] VITALS (21 sets, daily range): BP systolic 84–144; BP diastolic 41–68; PULSE 76–118; RESP 16–24; TEMP 37.3–38.2; O2SAT 90–100
[2018-04-23] MEDS: Acetaminophen 325 MG Tablet 650 MG PO ×3 (01:10→16:32)
[2018-04-23] MEDS: Ondansetron 4 MG/2 ML Vial IV ×2 (02:02→22:33)
[2018-04-23] MEDS: traMADol 50 MG Tablet PO ×2 (07:03→22:26)
[2018-04-23 07:10] LABS: Bedside Glucose 218 mg/dL (70-110)
[2018-04-23] MEDS: Ipratropium/Albuterol Sulfate 3 ML AMPUL.NEB INHALATION ×3 (07:23→19:19)
[2018-04-23 08:10] LABS: Absolute Lymphocyte Count 1.41 X10^3/ul (0.83-4.51); Absolute Neutrophil Count 11.2 X10^3/uL (2.0-7.7); Basophil# 0.03 X10^3/uL; Basophil% 0.2 % (0-1); Eosinophil# 0.01 X10^3/uL; Eosinophils% 0.1 % (0-5); Hematocrit 38.9 % (37-47); Hemoglobin 12.9 g/dl (12.0-15.0); Lymphocyte # 1.41 X10^3/ul (4.0); Lymphocyte % 10.7 % (19-41); Mean Corp Hgb Conc 33.2 g/gl (32-36); Mean Corpuscular Hgb 28.9 pg (27.0-32.0); Mean Platelet Vol. 10.4 fl (6.2-12.0); Monocyte# 0.58 X10^3/uL; Monocyte% 4.4 % (0-10); Neutrophil # 11.16 X10^3/uL (2.7-7.7); Neutrophil % 84.4 % (47-70); Platelet Count 204 K/mm3 (150-450); RBC Distribution Width CV 16.3 % (11.6-14.6); RBC Distribution Width SD 51.6 fl (35.1-43.9); Red Blood Count 4.47 M/mm3 (4.2-5.4); White Blood Count 13.2 K/mm3 (4.4-11.0)
[2018-04-23 08:11] LABS: POSITIVE COUNT NO; POSITIVE DIFFERENTIAL NO; POSITIVE MORPHOLOGY NO
[2018-04-23 09:11] LABS: Anion Gap 6 (5-15); BUN 7 mg/dL (7-18); BUN/Creat Ratio 10.1 RATIO (10-20); Calcium,Total 8.6 mg/dL (8.5-10.1); Chloride 101 mmol/L (98-107); Creatinine, Serum 0.69 mg/dL (0.55-1.02); EST Glomerular Filtration Rate 88 mL/min (>60); Est Glom Filt Rate - Afr Amer 107 mL/min (>60); Estimated Creatinine Clearance 39.63 ml/min; Glucose 222 mg/dL (74-106); Potassium 3.3 mmol/L (3.5-5.1); Sodium Level 132 mmol/L (136-145)
[2018-04-23] MEDS: Insulin Lispro 100 UNIT/ML INSULN.PEN SQ ×3 (09:17→17:25)
[2018-04-23] MEDS: Insulin Lispro 100 UNIT/ML INSULN.PEN 10 UNIT SC (09:18)
[2018-04-23] MEDS: Oseltamivir Phosphate 30 MG Capsule PO ×2 (09:37→22:27)
[2018-04-23] MEDS: Heparin Injection (Vial) 5,000 UNIT/ML VIAL 5000 UNIT SC ×2 (09:37→22:28)
[2018-04-23] MEDS: Metoprolol(XL)Succ 100 MG Tablet PO (09:38)
[2018-04-23] MEDS: Glucerna Shake 120 ML LIQUID PO (09:45)
[2018-04-23] MEDS: Ceftriaxone 1 GM/50 ML BAG IV (09:45)
[2018-04-23 12:20] LABS: Bedside Glucose 318 mg/dL (70-110)
[2018-04-23] MEDS: Albuterol 2.5 MG/3 ML VIAL.NEB. INHALATION (16:43)
[2018-04-23 16:45] LABS: Bedside Glucose 164 mg/dL (70-110)
--- NOTE | 2018-04-23 16:57 | PCM.PN.HOSP ---
Patient Problems: Active and Suspected Problems Influenzal pneumonia (Acute) Sepsis (Acute) Hyperglycemia due to type 2 diabetes mellitus (Acute) Subjective: Patient seen and examined. She planes of melena stools. Generally feels about the same. Denied any fever or chills Vitals/I&O's: Vital Signs Temp Pulse Resp BP Pulse Ox 99.2 F H 80 18 123/57 H 97 04/23/18 11:45 04/23/18 15:12 04/23/18 11:45 04/23/18 11:45 04/23/18 14:00 Oxygen Flow Rate (L/min) 3 Oxygen Delivery Method Nasal Cannula Weight: 75.1 kg Body Mass Index (BMI) 30.3 Intake and Output for Last 24 Hours 04/21/18 04/22/18 04/23/18 23:59 23:59 23:59 Intake Total 225 / 225 2072 / 2072 Output Total 300 / 300 Balance 225 / 225 1772 / 1772 General: Alert, Oriented x3, Cooperative, No apparent distress, - - on 3L oxygen HEENT: Atraumatic, PERRLA, EOMI, Normocephalic Oral: Moist Mucosa - 3 L of oxygen Neck: Supple Lungs: Normal air movement, Diminished Cardiovascular: Regular rate, Regular Rhythm, Normal S1, Normal S2, No murmurs Abdomen: Bowel Sounds Present, Soft, Non Tender, Non-Distended, No Hepato-splenomegaly Extremities: No edema Skin: No breakdown Musculoskeletal: No Tenderness to Palpation of Joints or Extremities Neurological: Cranial nerves II-XII grossly intact Psych/Mental Status: Normal Affect, Appropriate Microbiology Past 72 Hours 04/22/18 15:58 Mucosa - Nose Respiratory Panel (PCR) - Final Influenza A (Subtype H3) 04/22/18 18:15 Urine, Clean Catch Streptococcus pneumoniae Antigen (M - Final 04/22/18 18:15 Urine, Clean Catch Legionella Antigen - Final Laboratory Results 04/22/18 16:38: Troponin I 0.026 04/22/18 17:25: POC Glucose 237 H 04/22/18 18:25: Urine Color Yellow, Urine Clarity Sl. Cloudy, Urine pH 6.0, Ur Specific [place] 1.020, Urine Protein 30 H, Urine Glucose (UA) 100 H, Urine Ketones 5 H, Urine Occult Blood 150 H, Urine Nitrite Negative, Urine Bilirubin Negative, Urine Urobilinogen Normal, Ur Leukocyte Esterase 500 H, Urine RBC 0 SEEN, Urine WBC 10-25 SEEN, Ur Squamous Epith Cells 5-10 SEEN, Ur Transition Epith Cell 0-5 SEEN, Urine Bacteria 0 SEEN, Urine Mucus 0 SEEN 04/22/18 19:03: Troponin I 0.027 04/22/18 21:57: POC Glucose 318 H 04/23/18 06:59: POC Glucose 218 H 04/23/18 07:30: Sodium 132 L, Potassium 3.3 L, Chloride 101, Carbon Dioxide 25.0, Anion Gap 6, BUN 7, Creatinine 0.69, Estim Creat Clear Calc 39.63, Est GFR (MDRD) Af Amer 107, Est GFR (MDRD) Non-Af 88, BUN/Creatinine Ratio 10.1, Glucose 222 H, Calcium 8.6 04/23/18 07:30: WBC 13.2 H, RBC 4.47, Hgb 12.9, Hct 38.9, MCV 87.0, MCH 28.9, MCHC 33.2, RDW 16.3 H, RDW Differential 51.6 H, Plt Count 204, MPV 10.4, Immature Gran % (Auto) 0.200, Neut % (Auto) 84.4 H, Lymph % (Auto) 10.7 L, [place] % (Auto) 4.4, Eos % (Auto) 0.1, Baso % (Auto) 0.2, Absolute Neuts (auto) 11.2 H, Absolute Lymphs (auto) 1.41, Total Counted Not Reportable 04/23/18 12:09: POC Glucose 318 H 04/23/18 16:34: POC Glucose 164 H Current Medications Acetaminophen (Tylenol) 650 mg PO Q6H PRN PRN PRN Reason: Mild Pain (1-3)/Temp > 100.7 F Last Admin: 04/23/18 16:32 Dose: 650 mg Albuterol Sulfate (Ventolin Aerosols) 2.5 mg INHALATION Q2H PRN PRN PRN Reason: SOB &/OR WHEEZING Last Admin: 04/23/18 16:43 Dose: 2.5 mg Albuterol/Ipratropium (Duoneb) 3 ml INHALATION Q6HWA.RT [place] Last Admin: 04/23/18 13:19 Dose: 3 ml Atorvastatin Calcium (Lipitor) 80 mg PO QHS [facility] Last Admin: 04/22/18 22:00 Dose: 80 mg Dextrose (D50w Syringe) 0 gm IV X1 PRN; Protocol PRN Reason: Hypoglycemia Glucagon () 1 mg IM .X1 PRN PRN Reason: Hypoglycemia Guaifenesin (Mucinex) 1,200 mg PO BID PRN PRN Reason: COUGH Heparin Sodium (Porcine) (Heparin Na) 5,000 unit SC Q12 [facility] Last Admin: 04/23/18 09:37 Dose: 5,000 unit Azithromycin 500 mg/ Dextrose 255 mls @ 250 mls/hr IV Q24 [facility] Stop: 04/25/18 11:02 Last Admin: 04/23/18 11:20 Dose: 250 mls/hr Ceftriaxone Sodium (Rocephin) 1 gm in 50 mls @ 100 mls/hr IV Q24 [facility] Last Admin: 04/23/18 09:45 Dose: 100 mls/hr Doxycycline Hyclate 100 mg/ (Dextrose) 260 mls @ 250 mls/hr IV Q12 [facility] Insulin Human Lispro (Humalog Kwikpen (Bkc)) 20 unit SC X1 ONE Stop: 04/23/18 17:01 Insulin Human Lispro (Humalog Kwikpen (Bkc)) 0 unit SQ ACHS [facility]; Protocol Insulin Human Regular (Humulin R U-500 (Bk)) 20 units SC DAILY@0730 [facility] Magnesium Hydroxide (Milk Of Magnesia) 30 ml PO DAILY PRN PRN Reason: Constipation Metoprolol Succinate (Toprol Xl (Beta Jennifer)) 100 mg PO DAILY [facility] Last Admin: 04/23/18 09:38 Dose: 100 mg Nutritional Formula (Lactose Free) (Glucerna Shake) 120 ml PO 4X/DAY [facility] Last Admin: 04/23/18 15:04 Dose: Not Given Ondansetron HCl (Zofran) 4 mg IV Q8H PRN PRN PRN Reason: NAUSEA Last Admin: 04/23/18 02:02 Dose: 4 mg Oseltamivir Phosphate (Tamiflu) 30 mg PO BID [facility] Stop: 04/26/18 10:01 Last Admin: 04/23/18 09:37 Dose: 30 mg Tramadol HCl (Ultram) 50 mg PO BID PRN PRN PRN Reason: PAIN Last Admin: 04/23/18 07:03 Dose: 50 mg Medical Necessity - Tobacco Use Smoking Status: Never smoker - not currently Tobacco Use: Non-smoker Assessment/Plan All Active Problems Influenzal pneumonia (Acute) Sepsis (Acute) Hyperglycemia due to type 2 diabetes mellitus (Acute) 72 year old F with past medical history of hypertension, type II DM was diagnosed with influenza 3 days ago and has started Tamiflu. Patient comes in complains of feeling worse and feeling very short of breath. 1. Sepsis secondary to community-acquired pneumonia/acute influenza bronchitis bilateral worsening infiltrates on x-ray, on IV ceftriaxone and azithromycin 2. Recently diagnosed influenza, started on Tamiflu, will continue Tamiflu and droplet precautions 3. Hypokalemia, replaced, labs in a.m. 5. Hypertension, controlled, patient runs relatively low, lisinopril and metoprolol, continue to monitor 6. Type 2 DM, on insulin, will continue to monitor. Continue with Accu-Cheks with insulin sliding scale 7. DVT prophylaxis with heparin subcu Code Visit Inpatient E&M: 76868 Subs Hosp L2
--- NOTE | 2018-04-23 17:01 | PN_ITS ---
Patient Problems: Active and Suspected Problems Influenzal pneumonia (Acute) Sepsis (Acute) Hyperglycemia due to type 2 diabetes mellitus (Acute) Subjective: Patient seen and examined. She planes of melena stools. Generally feels about the same. Denied any fever or chills Vitals/I&O's: Vital Signs Temp Pulse Resp BP Pulse Ox 99.2 F H 80 18 123/57 H 97 04/23/18 11:45 04/23/18 15:12 04/23/18 11:45 04/23/18 11:45 04/23/18 14:00 Oxygen Flow Rate (L/min) 3 Oxygen Delivery Method Nasal Cannula Weight: 75.1 kg Body Mass Index (BMI) 30.3 Intake and Output for Last 24 Hours 04/21/18 04/22/18 04/23/18 23:59 23:59 23:59 Intake Total 225 / 225 2072 / 2072 Output Total 300 / 300 Balance 225 / 225 1772 / 1772 General: Alert, Oriented x3, Cooperative, No apparent distress, - - on 3L oxygen HEENT: Atraumatic, PERRLA, EOMI, Normocephalic Oral: Moist Mucosa - 3 L of oxygen Neck: Supple Lungs: Normal air movement, Diminished Cardiovascular: Regular rate, Regular Rhythm, Normal S1, Normal S2, No murmurs Abdomen: Bowel Sounds Present, Soft, Non Tender, Non-Distended, No Hepato- splenomegaly Extremities: No edema Skin: No breakdown Musculoskeletal: No Tenderness to Palpation of Joints or Extremities Neurological: Cranial nerves II-XII grossly intact Psych/Mental Status: Normal Affect, Appropriate Microbiology Past 72 Hours 04/22/18 15:58 Mucosa - Nose Respiratory Panel (PCR) - Final Influenza A (Subtype H3) 04/22/18 18:15 Urine, Clean Catch Streptococcus pneumoniae Antigen (M - Final 04/22/18 18:15 Urine, Clean Catch Legionella Antigen - Final Laboratory Results 04/22/18 16:38: Troponin I 0.026 04/22/18 17:25: POC Glucose 237 H 04/22/18 18:25: Urine Color Yellow, Urine Clarity Sl. Cloudy, Urine pH 6.0, Ur Specific [place] 1.020, Urine Protein 30 H, Urine Glucose (UA) 100 H, Urine Ketones 5 H, Urine Occult Blood 150 H, Urine Nitrite Negative, Urine Bilirubin Negative, Urine Urobilinogen Normal, Ur Leukocyte Esterase 500 H, Urine RBC 0 SEEN, Urine WBC 10-25 SEEN, Ur Squamous Epith Cells 5-10 SEEN, Ur Transition Epith Cell 0-5 SEEN, Urine Bacteria 0 SEEN, Urine Mucus 0 SEEN 04/22/18 19:03: Troponin I 0.027 04/22/18 21:57: POC Glucose 318 H 04/23/18 06:59: POC Glucose 218 H 04/23/18 07:30: Sodium 132 L, Potassium 3.3 L, Chloride 101, Carbon Dioxide 25.0, Anion Gap 6, BUN 7, Creatinine 0.69, Estim Creat Clear Calc 39.63, Est GFR (MDRD) Af Amer 107, Est GFR (MDRD) Non-Af 88, BUN/Creatinine Ratio 10.1, Glucose 222 H, Calcium 8.6 04/23/18 07:30: WBC 13.2 H, RBC 4.47, Hgb 12.9, Hct 38.9, MCV 87.0, MCH 28.9, MCHC 33.2, RDW 16.3 H, RDW Differential 51.6 H, Plt Count 204, MPV 10.4, Immature Gran % (Auto) 0.200, Neut % (Auto) 84.4 H, Lymph % (Auto) 10.7 L, [place] % (Auto) 4.4, Eos % (Auto) 0.1, Baso % (Auto) 0.2, Absolute Neuts (auto) 11.2 H, Absolute Lymphs (auto) 1.41, Total Counted Not Reportable 04/23/18 12:09: POC Glucose 318 H 04/23/18 16:34: POC Glucose 164 H Current Medications Acetaminophen (Tylenol) 650 mg PO Q6H PRN PRN PRN Reason: Mild Pain (1-3)/Temp > 100.7 F Last Admin: 04/23/18 16:32 Dose: 650 mg Albuterol Sulfate (Ventolin Aerosols) 2.5 mg INHALATION Q2H PRN PRN PRN Reason: SOB &/OR WHEEZING Last Admin: 04/23/18 16:43 Dose: 2.5 mg Albuterol/Ipratropium (Duoneb) 3 ml INHALATION Q6HWA.RT [place] Last Admin: 04/23/18 13:19 Dose: 3 ml Atorvastatin Calcium (Lipitor) 80 mg PO QHS [facility] Last Admin: 04/22/18 22:00 Dose: 80 mg Dextrose (D50w Syringe) 0 gm IV X1 PRN; Protocol PRN Reason: Hypoglycemia Glucagon () 1 mg IM .X1 PRN PRN Reason: Hypoglycemia Guaifenesin (Mucinex) 1,200 mg PO BID PRN PRN Reason: COUGH Heparin Sodium (Porcine) (Heparin Na) 5,000 unit SC Q12 [facility] Last Admin: 04/23/18 09:37 Dose: 5,000 unit Azithromycin 500 mg/ Dextrose 255 mls @ 250 mls/hr IV Q24 [facility] Stop: 04/25/18 11:02 Last Admin: 04/23/18 11:20 Dose: 250 mls/hr Ceftriaxone Sodium (Rocephin) 1 gm in 50 mls @ 100 mls/hr IV Q24 [facility] Last Admin: 04/23/18 09:45 Dose: 100 mls/hr Doxycycline Hyclate 100 mg/ (Dextrose) 260 mls @ 250 mls/hr IV Q12 [facility] Insulin Human Lispro (Humalog Kwikpen (Bkc)) 20 unit SC X1 [facility] Stop: 04/23/18 17:01 Insulin Human Lispro (Humalog Kwikpen (Bkc)) 0 unit SQ ACHS [facility]; Protocol Insulin Human Regular (Humulin R U-500 (Bk)) 20 units SC DAILY@0730 [facility] Magnesium Hydroxide (Milk Of Magnesia) 30 ml PO DAILY PRN PRN Reason: Constipation Metoprolol Succinate (Toprol Xl (Beta Jennifer)) 100 mg PO DAILY [facility] Last Admin: 04/23/18 09:38 Dose: 100 mg Nutritional Formula (Lactose Free) (Glucerna Shake) 120 ml PO 4X/DAY [facility] Last Admin: 04/23/18 15:04 Dose: Not Given Ondansetron HCl (Zofran) 4 mg IV Q8H PRN PRN PRN Reason: NAUSEA Last Admin: 04/23/18 02:02 Dose: 4 mg Oseltamivir Phosphate (Tamiflu) 30 mg PO BID [facility] Stop: 04/26/18 10:01 Last Admin: 04/23/18 09:37 Dose: 30 mg Tramadol HCl (Ultram) 50 mg PO BID PRN PRN PRN Reason: PAIN Last Admin: 04/23/18 07:03 Dose: 50 mg Medical Necessity - Tobacco Use Smoking Status: Never smoker - not currently Tobacco Use: Non-smoker Assessment/Plan All Active Problems Influenzal pneumonia (Acute) Sepsis (Acute) Hyperglycemia due to type 2 diabetes mellitus (Acute) 72 year old F with past medical history of hypertension, type II DM was diagnosed with influenza 3 days ago and has started Tamiflu. Patient comes in complains of feeling worse and feeling very short of breath. 1. Sepsis secondary to community-acquired pneumonia/acute influenza bronchitis bilateral worsening infiltrates on x-ray, on IV ceftriaxone and azithromycin 2. Recently diagnosed influenza, started on Tamiflu, will continue Tamiflu and droplet precautions 3. Hypokalemia, replaced, labs in a.m. 5. Hypertension, controlled, patient runs relatively low, lisinopril and metoprolol, continue to monitor 6. Type 2 DM, on insulin, will continue to monitor. Continue with Accu-Cheks with insulin sliding scale 7. DVT prophylaxis with heparin subcu Code Visit Inpatient E&M: 66762 Subs Hosp L2
[2018-04-23] MEDS: Insulin Lispro 100 UNIT/ML INSULN.PEN 20 UNIT SC (17:24)
[2018-04-23 18:19] LABS: Hematocrit 37.4 % (37-47); Hemoglobin 12.4 g/dl (12.0-15.0)
[2018-04-23] MEDS: Atorvastatin Calcium 80 MG Tablet PO (22:33)
[2018-04-23 23:26] LABS: Bedside Glucose 93 mg/dL (70-110)
[2018-04-24] VITALS (25 sets, daily range): BP systolic 86–158; BP diastolic 47–67; PULSE 82–118; RESP 16–20; TEMP 36.6–38.7; O2SAT 89–96
[2018-04-24 00:11] LABS: Hematocrit 37.2 % (37-47); Hemoglobin 12.5 g/dl (12.0-15.0)
[2018-04-24] MEDS: Acetaminophen 325 MG Tablet 650 MG PO ×2 (05:53→14:10)
[2018-04-24 07:01] LABS: Bedside Glucose 153 mg/dL (70-110)
[2018-04-24] MEDS: Ipratropium/Albuterol Sulfate 3 ML AMPUL.NEB INHALATION ×3 (07:36→20:00)
[2018-04-24 08:18] LABS: Absolute Lymphocyte Count 1.11 X10^3/ul (0.83-4.51); Absolute Neutrophil Count 10.4 X10^3/uL (2.0-7.7); Basophil# 0.03 X10^3/uL; Basophil% 0.2 % (0-1); Eosinophil# 0.03 X10^3/uL; Eosinophils% 0.2 % (0-5); Hematocrit 36.4 % (37-47); Hemoglobin 12.5 g/dl (12.0-15.0); Lymphocyte # 1.11 X10^3/ul (4.0); Lymphocyte % 9.1 % (19-41); Mean Corp Hgb Conc 34.3 g/gl (32-36); Mean Corpuscular Hgb 29.1 pg (27.0-32.0); Mean Corpuscular Volume 84.8 fL (81-99); Mean Platelet Vol. 9.7 fl (6.2-12.0); Monocyte# 0.58 X10^3/uL; Monocyte% 4.8 % (0-10); Neutrophil # 10.37 X10^3/uL (2.7-7.7); Neutrophil % 85.5 % (47-70); Platelet Count 210 K/mm3 (150-450); RBC Distribution Width CV 16.1 % (11.6-14.6); RBC Distribution Width SD 50.6 fl (35.1-43.9); Red Blood Count 4.29 M/mm3 (4.2-5.4); White Blood Count 12.1 K/mm3 (4.4-11.0)
[2018-04-24 08:23] LABS: Differential Indicated SCAN CRITERIA MET; POSITIVE COUNT NO; POSITIVE DIFFERENTIAL NO; POSITIVE MORPHOLOGY YES
[2018-04-24 08:27] LABS: Anion Gap 11 (5-15); BUN 8 mg/dL (7-18); BUN/Creat Ratio 12.8 RATIO (10-20); Chloride 97 mmol/L (98-107); Creatinine, Serum 0.62 mg/dL (0.55-1.02); EST Glomerular Filtration Rate 100 mL/min (>60); Est Glom Filt Rate - Afr Amer 120 mL/min (>60); Estimated Creatinine Clearance 39.63 ml/min; Glucose 151 mg/dL (74-106); Potassium 3.2 mmol/L (3.5-5.1); Sodium Level 133 mmol/L (136-145)
[2018-04-24 08:45] LABS: Platelet Estimate ADEQUATE (ADEQ); Red Cell Morphology NORM C+C NORMAL (NORM C&C)
[2018-04-24] MEDS: traMADol 50 MG Tablet PO ×2 (09:02→23:33)
[2018-04-24] MEDS: Ondansetron 4 MG/2 ML Vial IV ×2 (09:02→23:34)
[2018-04-24] MEDS: Heparin Injection (Vial) 5,000 UNIT/ML VIAL 5000 UNIT SC (09:03)
[2018-04-24] MEDS: Metoprolol(XL)Succ 100 MG Tablet PO (09:03)
[2018-04-24] MEDS: Oseltamivir Phosphate 30 MG Capsule PO ×2 (09:03→22:07)
[2018-04-24] MEDS: Insulin Lispro 100 UNIT/ML INSULN.PEN SQ ×4 (09:03→22:04)
[2018-04-24] MEDS: Glucerna Shake 120 ML LIQUID PO ×2 (09:05→14:10)
[2018-04-24] MEDS: Ceftriaxone 1 GM/50 ML BAG IV (09:06)
[2018-04-24 12:06] LABS: Bedside Glucose 441 mg/dL (70-110)
[2018-04-24] MEDS: predniSONE 20 MG Tablet 40 MG PO (12:25)
--- NOTE | 2018-04-24 14:29 | PCM.CONS.GEN ---
Problem List (1) Melena Status: Acute Reason for Consult Date of Consultation: 04/24/18 Reason for Consultation: Black tarry stools History of Present Illness: The patient is a 72 year old F who is admitted for influenza. The patient reports that approximately 4-5 days ago she started getting sick and at that time she was having right lower quadrant pain and started to have black tarry stools. She denies any epigastric pain. She has never had a scope. She is not on any antacid medication at home and denies reflux. Patient has never had GI bleeding in the past. Past Medical History Past Medical History (Chronic Problems): Chronic Problems Hyperlipidemia (Chronic) Hypertension (Chronic) Type 2 diabetes mellitus (Chronic) Allergies No Known Allergies Allergy (Verified 04/21/18 11:18) Home Medications: Ambulatory Orders Medication Instructions Recorded Insulin U-500 [Humulin R U-500 100 units SC BIDAC 04/21/18 ([facility])] Metformin HCl [Glucophage Xr] 1,500 mg PO DAILY 04/21/18 Rosuvastatin Calcium [Crestor] 40 mg PO QHS 04/21/18 traMADol [Ultram (G)] 50 mg PO BID PRN PRN 04/21/18 Ergocalciferol (Vitamin D2) 50,000 unit PO QMONTH 04/22/18 [Vitamin D2] Metoprolol(XL)Succ [Toprol Xl 100 mg PO DAILY 04/22/18 (Beta Jennifer)] Surgical History: hysterectomy, - - Cervical laminectomy, hemorrdoidectomy Psychiatric History: No pertinent psych hx 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 Denies: Hematemesis, Hematochezia, Vomiting Genitourinary: Denies: Dysuria Musculoskeletal: Denies: Joint Tenderness Skin: Denies: Dryness Psychiatric: Denies: Anxiety Hematologic/ Lymphatic: Denies: Anemia Patient Problems: Active and Suspected Problems Influenzal pneumonia (Acute) Sepsis (Acute) Hyperglycemia due to type 2 diabetes mellitus (Acute) Melena (Acute) - Physical Exam General: Alert, Oriented x3, Cooperative HEENT: Atraumatic Neck: Supple, No JVD Lungs: Normal air movement Cardiovascular: Regular rate, Regular Rhythm Abdomen: Soft, Non-Distended, Tender - Mild tenderness in the left lower quadrant with no rebound or guarding Extremities: No clubbing Musculoskeletal: No Muscle Wasting Neurological: Cranial nerves II-XII grossly intact Psych/Mental Status: Normal Affect, Appropriate Vital Signs Temp Pulse Resp BP Pulse Ox 99.6 F H 98 18 93/54 L 93 04/24/18 14:06 04/24/18 14:06 04/24/18 14:06 04/24/18 14:06 04/24/18 14:06 Oxygen Flow Rate (L/min) 5 Oxygen Delivery Method Nasal Cannula Weight: 166 lb 3.657 oz Body Mass Index (BMI) 30.3 Intake and Output for Last 24 Hours 04/22/18 04/23/18 04/25/18 23:59 23:59 00:59 Intake Total 225 / 225 2969 / 2969 1539 / 1539 Output Total 625 / 625 1700 / 1700 Balance 225 / 225 2344 / 2344 -161 / -161 Microbiology Past 72 Hours 04/22/18 09:55 Blood Culture - Preliminary Blood Culture (Wb) - Arm Right No growth in 48 hours. 04/22/18 09:48 Blood Culture - Preliminary Blood Culture (Wb) - Anticubital Left No growth in 48 hours. 04/22/18 18:15 Urine Culture - Final Urine, Clean Catch Culture exhibits no growth. 04/23/18 18:15 Stool Occult Blood (XUAN) - Final Stool Occult Blood Positive 04/22/18 15:58 Respiratory Panel (PCR) - Final Mucosa - Nose Influenza A (Subtype H3) 04/22/18 18:15 Streptococcus pneumoniae Antigen (M - Final Urine, Clean Catch 04/22/18 18:15 Legionella Antigen - Final Urine, Clean Catch Laboratory Tests Past 24 Hrs 04/23/18 04/23/18 04/24/18 17:48 23:50 07:40 WBC 12.1 H RBC 4.29 Hgb 12.4 12.5 12.5 Hct 37.4 37.2 36.4 L MCV 84.8 MCH 29.1 MCHC 34.3 RDW 16.1 H RDW Differential 50.6 H Plt Count 210 MPV 9.7 Immature Gran % (Auto) 0.200 Neut % (Auto) 85.5 H Lymph % (Auto) 9.1 L Barber % (Auto) 4.8 Eos % (Auto) 0.2 Baso % (Auto) 0.2 Absolute Neuts (auto) 10.4 H Absolute Lymphs (auto) 1.11 Total Counted Not Reportable Platelet Estimate ADEQUATE RBC Morphology NORM C+C Sodium Potassium Chloride Carbon Dioxide Anion Gap BUN Creatinine Estim Creat Clear Calc Est GFR (MDRD) Af Amer Est GFR (MDRD) Non-Af BUN/Creatinine Ratio Glucose Calcium 04/24/18 07:40 WBC RBC Hgb Hct MCV MCH MCHC RDW RDW Differential Plt Count MPV Immature Gran % (Auto) Neut % (Auto) Lymph % (Auto) Barber % (Auto) Eos % (Auto) Baso % (Auto) Absolute Neuts (auto) Absolute Lymphs (auto) Total Counted Platelet Estimate RBC Morphology Sodium 133 L Potassium 3.2 L Chloride 97 L Carbon Dioxide 25.0 Anion Gap 11 BUN 8 Creatinine 0.62 Estim Creat Clear Calc 39.63 Est GFR (MDRD) Af Amer 120 Est GFR (MDRD) Non-Af 100 BUN/Creatinine Ratio 12.8 Glucose 151 H Calcium 9.0 POC Glucose 04/24/18 04/24/18 04/23/18 11:20 06:39 22:42 POC Glucose 441 H 153 H 93 04/23/18 16:34 POC Glucose 164 H Assessment/Plan All Active Problems Influenzal pneumonia (Acute) Sepsis (Acute) Hyperglycemia due to type 2 diabetes mellitus (Acute) Melena (Acute) 72-year-old female with melena 1. Patient describes melena this been going on for the last few days. She also describes having urgency with diarrhea. The patient is on steroids that was started yesterday also. At this time the patient is on 5 L of O2 and only satting 93%. I do not believe she would do well with MAC anesthesia with this O2 sat. 2. Currently hemoglobin and vitals are stable. I will start her on PPI and Carafate. Stop subcutaneous heparin. When her pneumonia has improved and her oxygen saturation is improved I will take her for EGD. She can have a Cscope as an outpatient. Schuyler Stockton MD Pager: [facility] [address] [place] [address], [address] [place] [address] Office:
--- NOTE | 2018-04-24 14:33 | CON.PCM_ITS ---
Problem List (1) Melena Status: Acute Reason for Consult Date of Consultation: 04/24/18 Reason for Consultation: Black tarry stools History of Present Illness: The patient is a 72 year old F who is admitted for influenza. The patient reports that approximately 4-5 days ago she started getting sick and at that time she was having right lower quadrant pain and started to have black tarry stools. She denies any epigastric pain. She has never had a scope. She is not on any antacid medication at home and denies reflux. Patient has never had GI bleeding in the past. Past Medical History Past Medical History (Chronic Problems): Chronic Problems Hyperlipidemia (Chronic) Hypertension (Chronic) Type 2 diabetes mellitus (Chronic) Allergies No Known Allergies Allergy (Verified 04/21/18 11:18) Home Medications: Ambulatory Orders Medication Instructions Recorded Insulin U-500 [Humulin R U-500 100 units SC BIDAC 04/21/18 ([facility])] Metformin HCl [Glucophage Xr] 1,500 mg PO DAILY 04/21/18 Rosuvastatin Calcium [Crestor] 40 mg PO QHS 04/21/18 traMADol [Ultram (G)] 50 mg PO BID PRN PRN 04/21/18 Ergocalciferol (Vitamin D2) 50,000 unit PO QMONTH 04/22/18 [Vitamin D2] Metoprolol(XL)Succ [Toprol Xl 100 mg PO DAILY 04/22/18 (Beta Jennifer)] Surgical History: hysterectomy, - - Cervical laminectomy, hemorrdoidectomy Psychiatric History: No 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 Denies: Hematemesis, Hematochezia, Vomiting Genitourinary: Denies: Dysuria Musculoskeletal: Denies: Joint Tenderness Skin: Denies: Dryness Psychiatric: Denies: Anxiety Hematologic/ Lymphatic: Denies: Anemia Patient Problems: Active and Suspected Problems Influenzal pneumonia (Acute) Sepsis (Acute) Hyperglycemia due to type 2 diabetes mellitus (Acute) Melena (Acute) - Physical Exam General: Alert, Oriented x3, Cooperative HEENT: Atraumatic Neck: Supple, No JVD Lungs: Normal air movement Cardiovascular: Regular rate, Regular Rhythm Abdomen: Soft, Non-Distended, Tender - Mild tenderness in the left lower quadrant with no rebound or guarding Extremities: No clubbing Musculoskeletal: No Muscle Wasting Neurological: Cranial nerves II-XII grossly intact Psych/Mental Status: Normal Affect, Appropriate Vital Signs Temp Pulse Resp BP Pulse Ox 99.6 F H 98 18 93/54 L 93 04/24/18 14:06 04/24/18 14:06 04/24/18 14:06 04/24/18 14:06 04/24/18 14:06 Oxygen Flow Rate (L/min) 5 Oxygen Delivery Method Nasal Cannula Weight: 166 lb 3.657 oz Body Mass Index (BMI) 30.3 Intake and Output for Last 24 Hours 04/22/18 04/23/18 04/25/18 23:59 23:59 00:59 Intake Total 225 / 225 2969 / 2969 1539 / 1539 Output Total 625 / 625 1700 / 1700 Balance 225 / 225 2344 / 2344 -161 / -161 Microbiology Past 72 Hours 04/22/18 09:55 Blood Culture - Preliminary Blood Culture (Wb) - Arm Right No growth in 48 hours. 04/22/18 09:48 Blood Culture - Preliminary Blood Culture (Wb) - Anticubital Left No growth in 48 hours. 04/22/18 18:15 Urine Culture - Final Urine, Clean Catch Culture exhibits no growth. 04/23/18 18:15 Stool Occult Blood (XUAN) - Final Stool Occult Blood Positive 04/22/18 15:58 Respiratory Panel (PCR) - Final Mucosa - Nose Influenza A (Subtype H3) 04/22/18 18:15 Streptococcus pneumoniae Antigen (M - Final Urine, Clean Catch 04/22/18 18:15 Legionella Antigen - Final Urine, Clean Catch Laboratory Tests Past 24 Hrs 04/23/18 04/23/18 04/24/18 17:48 23:50 07:40 WBC 12.1 H RBC 4.29 Hgb 12.4 12.5 12.5 Hct 37.4 37.2 36.4 L MCV 84.8 MCH 29.1 MCHC 34.3 RDW 16.1 H RDW Differential 50.6 H Plt Count 210 MPV 9.7 Immature Gran % (Auto) 0.200 Neut % (Auto) 85.5 H Lymph % (Auto) 9.1 L Slope % (Auto) 4.8 Eos % (Auto) 0.2 Baso % (Auto) 0.2 Absolute Neuts (auto) 10.4 H Absolute Lymphs (auto) 1.11 Total Counted Not Reportable Platelet Estimate ADEQUATE RBC Morphology NORM C+C Sodium Potassium Chloride Carbon Dioxide Anion Gap BUN Creatinine Estim Creat Clear Calc Est GFR (MDRD) Af Amer Est GFR (MDRD) Non-Af BUN/Creatinine Ratio Glucose Calcium 04/24/18 07:40 WBC RBC Hgb Hct MCV MCH MCHC RDW RDW Differential Plt Count MPV Immature Gran % (Auto) Neut % (Auto) Lymph % (Auto) Slope % (Auto) Eos % (Auto) Baso % (Auto) Absolute Neuts (auto) Absolute Lymphs (auto) Total Counted Platelet Estimate RBC Morphology Sodium 133 L Potassium 3.2 L Chloride 97 L Carbon Dioxide 25.0 Anion Gap 11 BUN 8 Creatinine 0.62 Estim Creat Clear Calc 39.63 Est GFR (MDRD) Af Amer 120 Est GFR (MDRD) Non-Af 100 BUN/Creatinine Ratio 12.8 Glucose 151 H Calcium 9.0 POC Glucose 04/24/18 04/24/18 04/23/18 11:20 06:39 22:42 POC Glucose 441 H 153 H 93 04/23/18 16:34 POC Glucose 164 H Assessment/Plan All Active Problems Influenzal pneumonia (Acute) Sepsis (Acute) Hyperglycemia due to type 2 diabetes mellitus (Acute) Melena (Acute) 72-year-old female with melena 1. Patient describes melena this been going on for the last few days. She also describes having urgency with diarrhea. The patient is on steroids that was started yesterday also. At this time the patient is on 5 L of O2 and only satting 93%. I do not believe she would do well with MAC anesthesia with this O2 sat. 2. Currently hemoglobin and vitals are stable. I will start her on PPI and Carafate. Stop subcutaneous heparin. When her pneumonia has improved and her oxygen saturation is improved I will take her for EGD. She can have a Cscope as an outpatient. Schuyler Stockton MD Pager: [facility] [address] [place] [address], [address] [place] [address] Office:
[2018-04-24 15:16] LABS: Bedside Glucose 287 mg/dL (70-110)
--- NOTE | 2018-04-24 15:21 | PCM.PN.HOSP ---
Patient Problems: Active and Suspected Problems Influenzal pneumonia (Acute) Sepsis (Acute) Hyperglycemia due to type 2 diabetes mellitus (Acute) Melena (Acute) Subjective: Patient was seen and examined. She complains of feeling unwell. Denied any melena stools today. Denied any dizziness or palpitations or shortness of breath. Objective: Physical exam: General: Alert, Oriented x3, Cooperative, No apparent distress, - - on 5L oxygen HEENT: Atraumatic, PERRLA, EOMI, Normocephalic Oral: Moist Mucosa - 3 L of oxygen Neck: Supple Lungs: Normal air movement, Diminished Cardiovascular: Regular rate, Regular Rhythm, Normal S1, Normal S2, No murmurs Abdomen: Bowel Sounds Present, Soft, Non Tender, Non-Distended, No Hepato-splenomegaly Extremities: No edema Skin: No breakdown Musculoskeletal: No Tenderness to Palpation of Joints or Extremities Neurological: Cranial nerves II-XII grossly intact Psych/Mental Status: Normal Affect, Appropriate Vitals/I&O's: Vital Signs Temp Pulse Resp BP Pulse Ox 98.9 F 99 18 127/67 H 92 04/24/18 14:38 04/24/18 14:38 04/24/18 14:38 04/24/18 14:38 04/24/18 14:38 Oxygen Flow Rate (L/min) 5 Oxygen Delivery Method Nasal Cannula Weight: 75.4 kg Body Mass Index (BMI) 30.3 Intake and Output for Last 24 Hours 04/22/18 04/23/18 04/25/18 23:59 23:59 00:59 Intake Total 225 / 225 2969 / 2969 1539 / 1539 Output Total 625 / 625 1700 / 1700 Balance 225 / 225 2344 / 2344 -161 / -161 Microbiology Past 72 Hours 04/22/18 09:55 Blood Culture (Wb) - Arm Right Blood Culture - Preliminary No growth in 48 hours. 04/22/18 09:48 Blood Culture (Wb) - Anticubital Left Blood Culture - Preliminary No growth in 48 hours. 04/22/18 18:15 Urine, Clean Catch Urine Culture - Final Culture exhibits no growth. 04/23/18 18:15 Stool Stool Occult Blood (XUAN) - Final Occult Blood Positive 04/22/18 15:58 Mucosa - Nose Respiratory Panel (PCR) - Final Influenza A (Subtype H3) 04/22/18 18:15 Urine, Clean Catch Streptococcus pneumoniae Antigen (M - Final 04/22/18 18:15 Urine, Clean Catch Legionella Antigen - Final Laboratory Results 04/23/18 16:34: POC Glucose 164 H 04/23/18 17:48: Hgb 12.4, Hct 37.4 04/23/18 22:42: POC Glucose 93 04/23/18 23:50: Hgb 12.5, Hct 37.2 04/24/18 06:39: POC Glucose 153 H 04/24/18 07:40: WBC 12.1 H, RBC 4.29, Hgb 12.5, Hct 36.4 L, MCV 84.8, MCH 29.1, MCHC 34.3, RDW 16.1 H, RDW Differential 50.6 H, Plt Count 210, MPV 9.7, Immature Gran % (Auto) 0.200, Neut % (Auto) 85.5 H, Lymph % (Auto) 9.1 L, Rolette % (Auto) 4.8, Eos % (Auto) 0.2, Baso % (Auto) 0.2, Absolute Neuts (auto) 10.4 H, Absolute Lymphs (auto) 1.11, Total Counted Not Reportable, Platelet Estimate ADEQUATE, RBC Morphology NORM C+C 04/24/18 07:40: Sodium 133 L, Potassium 3.2 L, Chloride 97 L, Carbon Dioxide 25.0, Anion Gap 11, BUN 8, Creatinine 0.62, Estim Creat Clear Calc 39.63, Est GFR (MDRD) Af Amer 120, Est GFR (MDRD) Non-Af 100, BUN/Creatinine Ratio 12.8, Glucose 151 H, Calcium 9.0 04/24/18 11:20: POC Glucose 441 H 04/24/18 14:02: POC Glucose 287 H Current Medications Acetaminophen (Tylenol) 650 mg PO Q6H PRN PRN PRN Reason: Mild Pain (1-3)/Temp > 100.7 F Last Admin: 04/24/18 14:10 Dose: 650 mg Albuterol Sulfate (Ventolin Aerosols) 2.5 mg INHALATION Q2H PRN PRN PRN Reason: SOB &/OR WHEEZING Last Admin: 04/23/18 16:43 Dose: 2.5 mg Albuterol/Ipratropium (Duoneb) 3 ml INHALATION Q6HWA.RT [facility] Last Admin: 04/24/18 13:21 Dose: 3 ml Atorvastatin Calcium (Lipitor) 80 mg PO QHS [facility] Last Admin: 04/23/18 22:33 Dose: 80 mg Dextrose (D50w Syringe) 0 gm IV X1 PRN; Protocol PRN Reason: Hypoglycemia Glucagon () 1 mg IM .X1 PRN PRN Reason: Hypoglycemia Guaifenesin (Mucinex) 1,200 mg PO BID PRN PRN Reason: COUGH Heparin Sodium (Porcine) (Heparin Na) 5,000 unit SC Q12 [facility] Last Admin: 04/24/18 09:03 Dose: 5,000 unit Azithromycin 500 mg/ Dextrose 255 mls @ 250 mls/hr IV Q24 [facility] Stop: 04/25/18 11:02 Last Admin: 04/24/18 09:06 Dose: 250 mls/hr Ceftriaxone Sodium (Rocephin) 1 gm in 50 mls @ 100 mls/hr IV Q24 [facility] Last Admin: 04/24/18 09:06 Dose: 100 mls/hr Doxycycline Hyclate 100 mg/ (Dextrose) 260 mls @ 250 mls/hr IV Q12 [facility] Last Admin: 04/24/18 09:06 Dose: 250 mls/hr Insulin Human Lispro (Humalog Kwikpen ([facility])) 0 unit SQ ACHS [facility]; Protocol Last Admin: 04/24/18 11:23 Dose: 11 u Insulin Human Regular (Humulin R U-500 ([facility])) 50 units SC BIDAC [facility] Last Admin: 04/24/18 09:05 Dose: 50 unit Magnesium Hydroxide (Milk Of Magnesia) 30 ml PO DAILY PRN PRN Reason: Constipation Metoprolol Succinate (Toprol Xl (Beta Jennifer)) 100 mg PO DAILY [facility] Last Admin: 04/24/18 09:03 Dose: 100 mg Nutritional Formula (Lactose Free) (Glucerna Shake) 120 ml PO 4X/DAY [facility] Last Admin: 04/24/18 14:10 Dose: 120 ml Ondansetron HCl (Zofran) 4 mg IV Q8H PRN PRN PRN Reason: NAUSEA Last Admin: 04/24/18 09:02 Dose: 4 mg Oseltamivir Phosphate (Tamiflu) 30 mg PO BID [facility] Stop: 04/26/18 10:01 Last Admin: 04/24/18 09:03 Dose: 30 mg Pantoprazole Sodium (Protonix) 20 mg PO BID [facility] Prednisone () 40 mg PO DAILY@0800 [facility] Last Admin: 04/24/18 12:25 Dose: 40 mg Sucralfate (Carafate) 1 gm PO 1HR_ACHS [facility] Tramadol HCl (Ultram) 50 mg PO BID PRN PRN PRN Reason: PAIN Last Admin: 04/24/18 09:02 Dose: 50 mg Medical Necessity - Tobacco Use Smoking Status: Never smoker - not currently Tobacco Use: Non-smoker Assessment/Plan All Active Problems Influenzal pneumonia (Acute) Sepsis (Acute) Hyperglycemia due to type 2 diabetes mellitus (Acute) Melena (Acute) 72 year old F with past medical history of hypertension, type II DM was diagnosed with influenza 3 days ago and has started Tamiflu. Patient comes in complains of feeling worse and feeling very short of breath. 1. Sepsis secondary to community-acquired pneumonia/acute influenza bronchitis bilateral worsening infiltrates on x-ray, on IV ceftriaxone and azithromycin 2. Acute respiratory insufficiency, secondary to community-acquired pneumonia and acute influenza bronchitis, patient is on 5 L of oxygen for now, encourage use of incentive spirometer, breathing treatments and wean off for SPO2 more than 94% 3. Heme positive stools secondary to acute GI bleed, stable vitals, no drop in H&H, general surgery consulted, started on PPI and sucrafate 4. Recently diagnosed influenza, on Tamiflu, will continue Tamiflu and droplet precautions 5. Hypokalemia, replaced, labs in a.m. 6. Hypertension, controlled, patient runs relatively low, lisinopril and metoprolol, continue to monitor 7. Type 2 DM, on insulin, will continue to monitor. Continue with Accu-Cheks with insulin sliding scale 8. DVT prophylaxis with heparin subcu Disposition: Possible discharge home with home oxygen Code Visit Inpatient E&M: 99417 Subs Hosp L2
--- NOTE | 2018-04-24 15:30 | PN_ITS ---
Patient Problems: Active and Suspected Problems Influenzal pneumonia (Acute) Sepsis (Acute) Hyperglycemia due to type 2 diabetes mellitus (Acute) Melena (Acute) Subjective: Patient was seen and examined. She complains of feeling unwell. Denied any melena stools today. Denied any dizziness or palpitations or shortness of breath. Objective: Physical exam: General: Alert, Oriented x3, Cooperative, No apparent distress, - - on 5L oxygen HEENT: Atraumatic, PERRLA, EOMI, Normocephalic Oral: Moist Mucosa - 3 L of oxygen Neck: Supple Lungs: Normal air movement, Diminished Cardiovascular: Regular rate, Regular Rhythm, Normal S1, Normal S2, No murmurs Abdomen: Bowel Sounds Present, Soft, Non Tender, Non-Distended, No Hepato- splenomegaly Extremities: No edema Skin: No breakdown Musculoskeletal: No Tenderness to Palpation of Joints or Extremities Neurological: Cranial nerves II-XII grossly intact Psych/Mental Status: Normal Affect, Appropriate Vitals/I&O's: Vital Signs Temp Pulse Resp BP Pulse Ox 98.9 F 99 18 127/67 H 92 04/24/18 14:38 04/24/18 14:38 04/24/18 14:38 04/24/18 14:38 04/24/18 14:38 Oxygen Flow Rate (L/min) 5 Oxygen Delivery Method Nasal Cannula Weight: 75.4 kg Body Mass Index (BMI) 30.3 Intake and Output for Last 24 Hours 04/22/18 04/23/18 04/25/18 23:59 23:59 00:59 Intake Total 225 / 225 2969 / 2969 1539 / 1539 Output Total 625 / 625 1700 / 1700 Balance 225 / 225 2344 / 2344 -161 / -161 Microbiology Past 72 Hours 04/22/18 09:55 Blood Culture (Wb) - Arm Right Blood Culture - Preliminary No growth in 48 hours. 04/22/18 09:48 Blood Culture (Wb) - Anticubital Left Blood Culture - Preliminary No growth in 48 hours. 04/22/18 18:15 Urine, Clean Catch Urine Culture - Final Culture exhibits no growth. 04/23/18 18:15 Stool Stool Occult Blood (XUAN) - Final Occult Blood Positive 04/22/18 15:58 Mucosa - Nose Respiratory Panel (PCR) - Final Influenza A (Subtype H3) 04/22/18 18:15 Urine, Clean Catch Streptococcus pneumoniae Antigen (M - Final 04/22/18 18:15 Urine, Clean Catch Legionella Antigen - Final Laboratory Results 04/23/18 16:34: POC Glucose 164 H 04/23/18 17:48: Hgb 12.4, Hct 37.4 04/23/18 22:42: POC Glucose 93 04/23/18 23:50: Hgb 12.5, Hct 37.2 04/24/18 06:39: POC Glucose 153 H 04/24/18 07:40: WBC 12.1 H, RBC 4.29, Hgb 12.5, Hct 36.4 L, MCV 84.8, MCH 29.1, MCHC 34.3, RDW 16.1 H, RDW Differential 50.6 H, Plt Count 210, MPV 9.7, Immature Gran % (Auto) 0.200, Neut % (Auto) 85.5 H, Lymph % (Auto) 9.1 L, [place] % (Auto) 4.8, Eos % (Auto) 0.2, Baso % (Auto) 0.2, Absolute Neuts (auto) 10.4 H, Absolute Lymphs (auto) 1.11, Total Counted Not Reportable, Platelet Estimate ADEQUATE, RBC Morphology NORM C+C 04/24/18 07:40: Sodium 133 L, Potassium 3.2 L, Chloride 97 L, Carbon Dioxide 25.0, Anion Gap 11, BUN 8, Creatinine 0.62, Estim Creat Clear Calc 39.63, Est GFR (MDRD) Af Amer 120, Est GFR (MDRD) Non-Af 100, BUN/Creatinine Ratio 12.8, Glucose 151 H, Calcium 9.0 04/24/18 11:20: POC Glucose 441 H 04/24/18 14:02: POC Glucose 287 H Current Medications Acetaminophen (Tylenol) 650 mg PO Q6H PRN PRN PRN Reason: Mild Pain (1-3)/Temp > 100.7 F Last Admin: 04/24/18 14:10 Dose: 650 mg Albuterol Sulfate (Ventolin Aerosols) 2.5 mg INHALATION Q2H PRN PRN PRN Reason: SOB &/OR WHEEZING Last Admin: 04/23/18 16:43 Dose: 2.5 mg Albuterol/Ipratropium (Duoneb) 3 ml INHALATION Q6HWA.RT [facility] Last Admin: 04/24/18 13:21 Dose: 3 ml Atorvastatin Calcium (Lipitor) 80 mg PO QHS [facility] Last Admin: 04/23/18 22:33 Dose: 80 mg Dextrose (D50w Syringe) 0 gm IV X1 PRN; Protocol PRN Reason: Hypoglycemia Glucagon () 1 mg IM .X1 PRN PRN Reason: Hypoglycemia Guaifenesin (Mucinex) 1,200 mg PO BID PRN PRN Reason: COUGH Heparin Sodium (Porcine) (Heparin Na) 5,000 unit SC Q12 [facility] Last Admin: 04/24/18 09:03 Dose: 5,000 unit Azithromycin 500 mg/ Dextrose 255 mls @ 250 mls/hr IV Q24 [facility] Stop: 04/25/18 11:02 Last Admin: 04/24/18 09:06 Dose: 250 mls/hr Ceftriaxone Sodium (Rocephin) 1 gm in 50 mls @ 100 mls/hr IV Q24 [facility] Last Admin: 04/24/18 09:06 Dose: 100 mls/hr Doxycycline Hyclate 100 mg/ (Dextrose) 260 mls @ 250 mls/hr IV Q12 [facility] Last Admin: 04/24/18 09:06 Dose: 250 mls/hr Insulin Human Lispro (Humalog Kwikpen (Bkc)) 0 unit SQ ACHS [facility]; Protocol Last Admin: 04/24/18 11:23 Dose: 11 u Insulin Human Regular (Humulin R U-500 (Bkc)) 50 units SC BIDAC [facility] Last Admin: 04/24/18 09:05 Dose: 50 unit Magnesium Hydroxide (Milk Of Magnesia) 30 ml PO DAILY PRN PRN Reason: Constipation Metoprolol Succinate (Toprol Xl (Beta Jennifer)) 100 mg PO DAILY [facility] Last Admin: 04/24/18 09:03 Dose: 100 mg Nutritional Formula (Lactose Free) (Glucerna Shake) 120 ml PO 4X/DAY [facility] Last Admin: 04/24/18 14:10 Dose: 120 ml Ondansetron HCl (Zofran) 4 mg IV Q8H PRN PRN PRN Reason: NAUSEA Last Admin: 04/24/18 09:02 Dose: 4 mg Oseltamivir Phosphate (Tamiflu) 30 mg PO BID [facility] Stop: 04/26/18 10:01 Last Admin: 04/24/18 09:03 Dose: 30 mg Pantoprazole Sodium (Protonix) 20 mg PO BID [facility] Prednisone () 40 mg PO DAILY@0800 [place] Last Admin: 04/24/18 12:25 Dose: 40 mg Sucralfate (Carafate) 1 gm PO 1HR_ACHS [place] Tramadol HCl (Ultram) 50 mg PO BID PRN PRN PRN Reason: PAIN Last Admin: 04/24/18 09:02 Dose: 50 mg Medical Necessity - Tobacco Use Smoking Status: Never smoker - not currently Tobacco Use: Non-smoker Assessment/Plan All Active Problems Influenzal pneumonia (Acute) Sepsis (Acute) Hyperglycemia due to type 2 diabetes mellitus (Acute) Melena (Acute) 72 year old F with past medical history of hypertension, type II DM was diagnosed with influenza 3 days ago and has started Tamiflu. Patient comes in complains of feeling worse and feeling very short of breath. 1. Sepsis secondary to community-acquired pneumonia/acute influenza bronchitis bilateral worsening infiltrates on x-ray, on IV ceftriaxone and azithromycin 2. Acute respiratory insufficiency, secondary to community-acquired pneumonia and acute influenza bronchitis, patient is on 5 L of oxygen for now, encourage use of incentive spirometer, breathing treatments and wean off for SPO2 more than 94% 3. Heme positive stools secondary to acute GI bleed, stable vitals, no drop in H&H, general surgery consulted, started on PPI and sucrafate 4. Recently diagnosed influenza, on Tamiflu, will continue Tamiflu and droplet precautions 5. Hypokalemia, replaced, labs in a.m. 6. Hypertension, controlled, patient runs relatively low, lisinopril and metoprolol, continue to monitor 7. Type 2 DM, on insulin, will continue to monitor. Continue with Accu-Cheks with insulin sliding scale 8. DVT prophylaxis with heparin subcu Disposition: Possible discharge home with home oxygen Code Visit Inpatient E&M: 29242 Subs Hosp L2
[2018-04-24] MEDS: Sucralfate 1 GM Tablet PO ×2 (16:00→22:07)
[2018-04-24 17:25] LABS: Bedside Glucose 309 mg/dL (70-110)
[2018-04-24] MEDS: Pantoprazole Sodium 20 MG Tablet PO (22:07)
[2018-04-24] MEDS: Atorvastatin Calcium 80 MG Tablet PO (22:07)
[2018-04-24 22:51] LABS: Bedside Glucose 302 mg/dL (70-110)
[2018-04-25] VITALS (17 sets, daily range): BP systolic 106–140; BP diastolic 56–83; PULSE 86–118; RESP 18–22; TEMP 36.7–37.3; O2SAT 92–96
[2018-04-25] MEDS: Acetaminophen 325 MG Tablet 650 MG PO (04:12)
[2018-04-25] MEDS: Sucralfate 1 GM Tablet PO ×4 (06:01→21:58)
[2018-04-25 06:56] LABS: Bedside Glucose 156 mg/dL (70-110)
[2018-04-25] MEDS: Ipratropium/Albuterol Sulfate 3 ML AMPUL.NEB INHALATION ×3 (07:04→19:05)
[2018-04-25 07:06] LABS: Absolute Lymphocyte Count 1.57 X10^3/ul (0.83-4.51); Absolute Neutrophil Count 8.6 X10^3/uL (2.0-7.7); Basophil# 0.08 X10^3/uL; Basophil% 0.7 % (0-1); Eosinophil# 0.09 X10^3/uL; Eosinophils% 0.8 % (0-5); Hematocrit 35.8 % (37-47); Hemoglobin 11.6 g/dl (12.0-15.0); Lymphocyte # 1.57 X10^3/ul (4.0); Lymphocyte % 14.2 % (19-41); Mean Corp Hgb Conc 32.4 g/gl (32-36); Mean Corpuscular Hgb 28.1 pg (27.0-32.0); Mean Corpuscular Volume 86.7 fL (81-99); Mean Platelet Vol. 9.7 fl (6.2-12.0); Monocyte# 0.71 X10^3/uL; Monocyte% 6.4 % (0-10); Neutrophil # 8.56 X10^3/uL (2.7-7.7); Neutrophil % 77.5 % (47-70); Platelet Count 259 K/mm3 (150-450); RBC Distribution Width CV 16.3 % (11.6-14.6); RBC Distribution Width SD 52.2 fl (35.1-43.9); Red Blood Count 4.13 M/mm3 (4.2-5.4); White Blood Count 11.1 K/mm3 (4.4-11.0)
[2018-04-25 07:09] LABS: Differential Indicated SCAN CRITERIA MET; POSITIVE COUNT NO; POSITIVE DIFFERENTIAL NO; POSITIVE MORPHOLOGY YES
[2018-04-25 07:25] LABS: Anion Gap 6 (5-15); BUN 12 mg/dL (7-18); BUN/Creat Ratio 17.8 RATIO (10-20); Calcium,Total 9.2 mg/dL (8.5-10.1); Chloride 100 mmol/L (98-107); Creatinine, Serum 0.67 mg/dL (0.55-1.02); EST Glomerular Filtration Rate 91 mL/min (>60); Est Glom Filt Rate - Afr Amer 110 mL/min (>60); Estimated Creatinine Clearance 39.63 ml/min; Glucose 183 mg/dL (74-106); Potassium 3.6 mmol/L (3.5-5.1); Sodium Level 133 mmol/L (136-145)
--- NOTE | 2018-04-25 08:32 | PCM.PN.SRG ---
Patient Problems: Active and Suspected Problems Influenzal pneumonia (Acute) Sepsis (Acute) Hyperglycemia due to type 2 diabetes mellitus (Acute) Melena (Acute) Subjective: Patient reports that her stools have decreased in amount. - Physical Exam General: Alert, Oriented x3, Cooperative Lungs: Normal air movement Abdomen: Soft, Non Tender, Non-Distended Vital Signs Temp Pulse Resp BP Pulse Ox 98.2 F 90 22 H 120/61 92 04/25/18 03:17 04/25/18 07:04 04/25/18 07:04 04/25/18 03:17 04/25/18 07:04 Oxygen Flow Rate (L/min) 6 Oxygen Delivery Method Nasal Cannula Weight: 165 lb 5.547 oz Body Mass Index (BMI) 30.3 Intake and Output for Last 24 Hours 04/23/18 04/24/18 04/25/18 22:59 23:59 23:59 Intake Total 480 / 480 Output Total 100 / 100 Balance 380 / 380 Microbiology Past 72 Hours 04/22/18 09:55 Blood Culture - Preliminary Blood Culture (Wb) - Arm Right No growth in 48 hours. 04/22/18 09:48 Blood Culture - Preliminary Blood Culture (Wb) - Anticubital Left No growth in 48 hours. 04/22/18 18:15 Urine Culture - Final Urine, Clean Catch Culture exhibits no growth. 04/23/18 18:15 Stool Occult Blood (XUAN) - Final Stool Occult Blood Positive 04/22/18 15:58 Respiratory Panel (PCR) - Final Mucosa - Nose Influenza A (Subtype H3) 04/22/18 18:15 Streptococcus pneumoniae Antigen (M - Final Urine, Clean Catch 04/22/18 18:15 Legionella Antigen - Final Urine, Clean Catch Laboratory Tests Past 24 Hrs 04/24/18 04/25/18 04/25/18 07:40 06:30 06:30 WBC 11.1 H RBC 4.13 L Hgb 11.6 L Hct 35.8 L MCV 86.7 MCH 28.1 MCHC 32.4 RDW 16.3 H RDW Differential 52.2 H Plt Count 259 MPV 9.7 Immature Gran % (Auto) 0.400 Neut % (Auto) 77.5 H Lymph % (Auto) 14.[address] [place] % (Auto) 6.4 Eos % (Auto) 0.8 Baso % (Auto) 0.7 Absolute Neuts (auto) 8.6 H Absolute Lymphs (auto) 1.57 Total Counted Not Reportable Not Reportable Platelet Estimate ADEQUATE RBC Morphology NORM C+C Sodium 133 L Potassium 3.6 Chloride 100 Carbon Dioxide 27.0 Anion Gap 6 BUN 12 Creatinine 0.67 Estim Creat Clear Calc 39.63 Est GFR (MDRD) Af Amer 110 Est GFR (MDRD) Non-Af 91 BUN/Creatinine Ratio 17.8 Glucose 183 H Calcium 9.2 POC Glucose 04/25/18 04/24/18 04/24/18 06:46 22:03 15:59 POC Glucose 156 H 302 H 309 H 04/24/18 04/24/18 14:02 11:20 POC Glucose 287 H 441 H Medical Necessity - Tobacco Use Smoking Status: Never smoker - not currently Tobacco Use: Non-smoker Assessment/Plan All Active Problems Influenzal pneumonia (Acute) Sepsis (Acute) Hyperglycemia due to type 2 diabetes mellitus (Acute) Melena (Acute) 72-year-old female with possible upper GI bleed 1. Patient is still requiring 5 L of nasal cannula. I will await her respiratory status to improve. If her bowels returned to normal before her respiratory status is improved I will perform an upper and lower scope as an outpatient. If her respiratory status improves and she continues to have melanotic stools I will perform an EGD before discharge. Schuyler Stockton MD Pager: [facility] [address] [place] [address], [address] [place] [address] Office:
[2018-04-25] MEDS: predniSONE 20 MG Tablet 40 MG PO (09:01)
[2018-04-25] MEDS: Metoprolol(XL)Succ 100 MG Tablet PO (09:01)
[2018-04-25] MEDS: Oseltamivir Phosphate 30 MG Capsule PO ×2 (09:01→21:58)
[2018-04-25] MEDS: Glucerna Shake 120 ML LIQUID PO ×4 (09:02→21:43)
[2018-04-25] MEDS: Insulin Lispro 100 UNIT/ML INSULN.PEN SQ ×4 (09:02→21:47)
[2018-04-25] MEDS: Pantoprazole Sodium 20 MG Tablet PO ×2 (09:03→21:58)
[2018-04-25] MEDS: Ceftriaxone 1 GM/50 ML BAG IV (10:57)
[2018-04-25 12:10] LABS: Bedside Glucose 406 mg/dL (70-110)
--- NOTE | 2018-04-25 13:49 | PN_ITS ---
Patient Problems: Active and Suspected Problems Influenzal pneumonia (Acute) Sepsis (Acute) Hyperglycemia due to type 2 diabetes mellitus (Acute) Melena (Acute) Subjective: Day #4 ceftriaxone and azithromycin The patient is a 72-year-old female with a past medical history of hyperlipidemia, hypertension and diabetes mellitus type 2 who presented to the emergency room on 04/22/2018 complaining of cough and shortness of breath. She had been diagnosed with influenza and started on Tamiflu 3 days prior to presentation to the emergency room. Temp in the ER was 100.3 and the heart rate was 103. The respiratory rate was 18 and she was 94% saturated on room air. Blood pressure was 112/67. White blood cell count was elevated at 13.8 with a left shift. Hemoglobin and platelets were within normal limits. Sodium was low at 131 and potassium was low at 3.3. BUN was 12 and the creatinine was 0.8. Lactic acid was 1.4 and the AST was mildly elevated at 60 with an ALT of 36. Troponin was within normal limits at 0.043. A UA showed 10-25 WBCs per high- power field with 5-10 squamous epithelial cells and no bacteria. Chest x-ray showed multiple bilateral infiltrates. She was admitted to the hospital with a diagnosis of sepsis secondary to community-acquired pneumonia with recent history of influenza A. She was started on ceftriaxone and azithromycin. Tamiflu was continued. All events of the past 24 hours been reviewed. She became afebrile on 04/24/2018 at approximately 2:30 PM. The vital signs are stable and she is 96% saturated on a 6 L nasal cannula. Fluid balance since admission is +[id number]. Lab: White blood cell count is 11.1 with 77% neutrophils. Hemoglobin has dropped to 11.6 from 13.5 with hydration. Platelets remain within normal limits. Sodium is still mildly decreased at 133 but the potassium has been repleted and is 3.6 today. Blood sugars are not adequately controlled. Microbiology: Respiratory panel was positive for influenza A, subtype 3. Legionella and streptococcal antigens in the urine were negative. Blood cultures had no growth. Sputum sample was not obtained until today and has 2+ white blood cells with rare gram-positive rods. A Hemoccult stool has been positive. - Physical Exam General: Alert, Oriented x3, Cooperative, Well developed, Well nourished HEENT: Atraumatic, PERRLA, EOMI, Normocephalic Oral: Moist Mucosa Neck: Supple, No JVD Lungs: Diminished, Rhonchi, Short of Breath, Tachypneic, Wheezes Cardiovascular: Regular rate, Regular Rhythm, Normal S1, Normal S2, No rub noted, No Gallop Abdomen: Bowel Sounds Present, Soft, Non Tender, Non-Distended Extremities: No clubbing, No cyanosis, No edema Skin: No rashes, No breakdown Neurological: Cranial nerves II-XII grossly intact, Neuro grossly intact Psych/Mental Status: Normal Affect, Appropriate Vital Signs Temp Pulse Resp BP Pulse Ox 98.0 F 94 18 124/68 H 96 04/25/18 08:58 04/25/18 11:00 04/25/18 08:58 04/25/18 09:01 04/25/18 08:58 Oxygen Flow Rate (L/min) 6 Oxygen Delivery Method Nasal Cannula Weight: 165 lb 5.547 oz Body Mass Index (BMI) 30.3 Intake and Output for Last 24 Hours 04/23/18 04/24/18 04/25/18 22:59 23:59 23:59 Intake Total 1349 / 1349 Output Total 1400 / 1400 Balance -51 / -51 Microbiology Past 72 Hours 04/25/18 04:05 Gram Stain - Final Sputum, Expectorated/Coughed 04/22/18 09:55 Blood Culture - Preliminary Blood Culture (Wb) - Arm Right No growth in 48 hours. 04/22/18 09:48 Blood Culture - Preliminary Blood Culture (Wb) - Anticubital Left No growth in 48 hours. 04/22/18 18:15 Urine Culture - Final Urine, Clean Catch Culture exhibits no growth. 04/23/18 18:15 Stool Occult Blood (XUAN) - Final Stool Occult Blood Positive 04/22/18 15:58 Respiratory Panel (PCR) - Final Mucosa - Nose Influenza A (Subtype H3) 04/22/18 18:15 Streptococcus pneumoniae Antigen (M - Final Urine, Clean Catch 04/22/18 18:15 Legionella Antigen - Final Urine, Clean Catch Laboratory Tests Past 24 Hrs 04/25/18 04/25/18 06:30 06:30 WBC 11.1 H RBC 4.13 L Hgb 11.6 L Hct 35.8 L MCV 86.7 MCH 28.1 MCHC 32.4 RDW 16.3 H RDW Differential 52.2 H Plt Count 259 MPV 9.7 Immature Gran % (Auto) 0.400 Neut % (Auto) 77.5 H Lymph % (Auto) 14.2 L [place] % (Auto) 6.4 Eos % (Auto) 0.8 Baso % (Auto) 0.7 Absolute Neuts (auto) 8.6 H Absolute Lymphs (auto) 1.57 Total Counted Not Reportable Sodium 133 L Potassium 3.6 Chloride 100 Carbon Dioxide 27.0 Anion Gap 6 BUN 12 Creatinine 0.67 Estim Creat Clear Calc 39.63 Est GFR (MDRD) Af Amer 110 Est GFR (MDRD) Non-Af 91 BUN/Creatinine Ratio 17.8 Glucose 183 H Calcium 9.2 POC Glucose 04/25/18 04/25/18 04/24/18 10:56 06:46 22:03 POC Glucose 406 H 156 H 302 H 04/24/18 04/24/18 15:59 14:02 POC Glucose 309 H 287 H Medical Necessity - Tobacco Use Smoking Status: Never smoker - not currently Tobacco Use: Non-smoker Assessment/Plan All Active Problems Influenzal pneumonia (Acute) Sepsis (Acute) Hyperglycemia due to type 2 diabetes mellitus (Acute) Melena (Acute) Impressions 1. Severe sepsis due to community-acquired pneumonia -likely viral due to influenza A 2. Acute respiratory failure with hypoxemia 3. Hypokalemia 4. Hypertension 5. Diabetes mellitus type 2 with marked insulin resistant on U5 100 insulin- hemoglobin A1c is 8.6 6. Former smoker 6. Hyponatremia-likely pseudohyponatremia secondary to hyperglycemia Adjust insulin regimen Continue antibiotics Check a hemoglobin A1c may need SNF at DC Needs an ambulatory pulse ox prior to DC Continue Prednisone Code Visit Inpatient E&M: 34270 Subs Hosp L3
--- NOTE | 2018-04-25 15:16 | CT_ITS ---
STUDY: CT CHEST WITHOUT CONTRAST REASON FOR EXAM: Female, 72 years old. Pneumonia, shortness of breath. RADIATION DOSAGE (If Supplied By Facility): CTDIvol = ( 12.80 ) mGy, DLP = ( 400.71 ) mGycm TECHNIQUE: Transaxial imaging was performed without the administration of intravenous contrast material. Coronal and sagittal 2-D MPR Individualized dose optimization techniques were used for this CT. COMPARISON: Chest x-ray 04/22/2018 FINDINGS: Supraclavicular: Normal. Body wall soft tissues: Normal. Upper abdomen: No acute process, limited evaluation. Osseous structures: No acute process. Prominent multilevel low cervical degenerative disc disease and facet hypertrophy contributing to foraminal stenosis. Mild multilevel thoracic degenerative disc disease without evidence of stenosis. Mild scoliosis. Osteopenia. Mediastinum: Normal esophagus. Multiple mildly enlarged lymph nodes are present in the mediastinum, probably also and new although the hilar evaluation is limited by the absence of IV contrast. Largest mediastinal lymph nodes measure up to 1.1 cm in the bernabe, 1.3 cm in the superior mediastinum pretracheal. Largest prevascular chain lymph nodes up to 9 mm. Largest AP window lymph nodes up to 13 mm. Heart: No significant cardiomegaly. Moderate three-vessel coronary calcifications. Aortic valve annulus calcifications and moderate leaflet calcifications. Aorta: Nondilated, moderate arch atherosclerosis. Pulmonary arteries: Nondilated. Lungs: Multisegmental, multilobar bilateral patchy and confluent ground glass opacities, presenting a mosaic attenuation pattern, in the upper lungs a pattern of crazy paving , associated with interlobular septal thickening in particular within the upper lobes. Associated with diffuse mild bronchial wall thickening. CT/Chest without Contrast IMPRESSION: Mediastinal lymphadenopathy. Extensive bilateral pulmonary groundglass infiltrates as described above, presenting a pattern of crazy paving. Differential considerations of this pattern include acute respiratory distress syndrome, bacterial pneumonia, pulmonary alveolar proteinosis, drug induced pneumonitis, pulmonary edema, pneumonia of atypical organisms, among multiple other possible etiologies. Somewhat favoring infectious etiology given the presence of mediastinal lymphadenopathy. There is no apparent subpleural nodularity in the lungs but consider also the possibility of sarcoidosis with a combination of pulmonary parenchymal abnormalities and mediastinal lymphadenopathy. Pulmonology consultation is recommended. The patient may benefit from follow-up high-resolution chest CT optimized for assessment of the interstitium. Electronically Signed: Mars Samuels MD at 16:28 EDT Tel , Service support ,
[2018-04-25 16:36] LABS: Bedside Glucose 318 mg/dL (70-110)
[2018-04-25] MEDS: traMADol 50 MG Tablet PO (21:43)
[2018-04-25] MEDS: Atorvastatin Calcium 80 MG Tablet PO (21:58)
[2018-04-25 22:31] LABS: Bedside Glucose 348 mg/dL (70-110)
--- NOTE | 2018-04-25 22:35 | NURSING ---
Report received from Lena Gregory. This nurse is now taking over care of this pt. at this time.
[2018-04-26] VITALS (17 sets, daily range): BP systolic 111–149; BP diastolic 62–75; PULSE 70–113; RESP 18–20; TEMP 36.8–37.2; O2SAT 92–95
[2018-04-26] MEDS: Acetaminophen 325 MG Tablet 650 MG PO (00:32)
[2018-04-26] MEDS: Insulin Lispro 100 UNIT/ML INSULN.PEN SQ ×4 (07:00→22:35)
[2018-04-26 07:10] LABS: Bedside Glucose 215 mg/dL (70-110)
[2018-04-26] MEDS: Ipratropium/Albuterol Sulfate 3 ML AMPUL.NEB INHALATION ×3 (07:21→19:42)
[2018-04-26] MEDS: predniSONE 20 MG Tablet 40 MG PO (07:58)
[2018-04-26] MEDS: Sucralfate 1 GM Tablet PO ×4 (07:58→22:42)
--- NOTE | 2018-04-26 08:13 | PN.SURG_ITS ---
Patient Problems: Active and Suspected Problems Influenzal pneumonia (Acute) Sepsis (Acute) Hyperglycemia due to type 2 diabetes mellitus (Acute) Melena (Acute) Subjective: Patient reports that her bowel movements have decreased in amount and I have turned brown again. - Physical Exam General: Alert, Cooperative Cardiovascular: Regular Rhythm Abdomen: Soft, Non Tender, Non-Distended Vital Signs Temp Pulse Resp BP Pulse Ox 98.7 F 82 20 H 144/62 H 92 04/26/18 03:30 04/26/18 06:55 04/26/18 03:30 04/26/18 03:30 04/26/18 08:01 Oxygen Flow Rate (L/min) 6 Oxygen Delivery Method Nasal Cannula Weight: 163 lb 5.8 oz Body Mass Index (BMI) 30.3 Intake and Output for Last 24 Hours 04/24/18 04/25/18 04/26/18 23:59 23:59 23:59 Intake Total 2289 / 2289 317 / 317 Output Total 2500 / 2500 600 / 600 Balance -211 / -211 -283 / -283 Microbiology Past 72 Hours 04/25/18 04:05 Gram Stain - Final Sputum, Expectorated/Coughed 04/22/18 09:55 Blood Culture - Preliminary Blood Culture (Wb) - Arm Right No growth in 48 hours. 04/22/18 09:48 Blood Culture - Preliminary Blood Culture (Wb) - Anticubital Left No growth in 48 hours. 04/22/18 18:15 Urine Culture - Final Urine, Clean Catch Culture exhibits no growth. 04/23/18 18:15 Stool Occult Blood (XUAN) - Final Stool Occult Blood Positive 04/22/18 15:58 Respiratory Panel (PCR) - Final Mucosa - Nose Influenza A (Subtype H3) Laboratory Tests Past 24 Hrs 04/26/18 06:45 Hemoglobin A1c Pending POC Glucose 04/26/18 04/25/18 04/25/18 06:58 21:46 16:17 POC Glucose 215 H 348 H 318 H 04/25/18 10:56 POC Glucose 406 H Medical Necessity - Tobacco Use Smoking Status: Never smoker - not currently Tobacco Use: Non-smoker Assessment/Plan All Active Problems Influenzal pneumonia (Acute) Sepsis (Acute) Hyperglycemia due to type 2 diabetes mellitus (Acute) Melena (Acute) 72-year-old female with melena 1. Patient's melena has improved and she is having brown stools. She is still requiring 6 L of nasal cannula. She can follow-up as an outpatient I will perform an upper and lower scope on her electively. Schuyler Stockton MD Pager: [facility] [address] [place] [address], [address] [place] [phone] Office:
[2018-04-26 08:35] LABS: Hemoglobin A1c 8.6 % (4.2-6.3)
[2018-04-26] MEDS: Ceftriaxone 1 GM/50 ML BAG IV (09:00)
[2018-04-26] MEDS: Glucerna Shake 120 ML LIQUID PO ×4 (09:00→22:43)
[2018-04-26] MEDS: Pantoprazole Sodium 20 MG Tablet PO ×2 (09:57→22:42)
[2018-04-26] MEDS: 0.9% NaCl Peripheral Flush Adult/Peds IV (09:57)
[2018-04-26] MEDS: Oseltamivir Phosphate 30 MG Capsule PO (09:57)
[2018-04-26] MEDS: Metoprolol(XL)Succ 100 MG Tablet PO (09:57)
[2018-04-26 11:26] LABS: Bedside Glucose 404 mg/dL (70-110)
--- NOTE | 2018-04-26 16:32 | PN_ITS ---
Patient Problems: Active and Suspected Problems Influenzal pneumonia (Acute) Sepsis (Acute) Hyperglycemia due to type 2 diabetes mellitus (Acute) Melena (Acute) Subjective: All events of the past 24 hours of been reviewed. She remains afebrile. Vital signs are stable. She is currently 94% saturated on a 5 L nasal cannula. Blood sugars are still not adequately controlled. CT of the chest done on 04/25/2018 showed mediastinal lymphadenopathy with extensive bilateral pulmonary groundglass infiltrates. - Physical Exam General: Alert, Oriented x3, Cooperative, Well developed, Well nourished HEENT: Atraumatic, PERRLA Oral: Dry Mucosa Neck: Supple, No Nodes, Trachea Midline Lungs: Diminished, - - She is tachypneic even at rest and has conversational dyspnea on 5-6 L of nasal O2. Breath sounds are very diminished. No rales. Occasional rhonchi. Cardiovascular: Regular rate, Regular Rhythm, Normal S1, Normal S2, No Gallop, Tachycardic - With even minimal exertion Abdomen: Bowel Sounds Present, Soft, Non Tender, Non-Distended Extremities: No clubbing, No cyanosis, Edema - Ankle Neurological: Cranial nerves II-XII grossly intact, Neuro grossly intact Psych/Mental Status: Normal Affect, Appropriate Vital Signs Temp Pulse Resp BP Pulse Ox 98.2 F 105 H 20 H 149/75 H 94 04/26/18 15:30 04/26/18 15:30 04/26/18 15:30 04/26/18 15:30 04/26/18 15:30 Oxygen Flow Rate (L/min) 5 Oxygen Delivery Method Nasal Cannula Weight: 163 lb 5.8 oz Body Mass Index (BMI) 30.3 Intake and Output for Last 24 Hours 04/24/18 04/25/18 04/26/18 23:59 23:59 23:59 Intake Total 2289 / 2289 1257.3 / 1257.3 Output Total 2500 / 2500 800 / 800 Balance -211 / -211 457.3 / 457.3 Microbiology Past 72 Hours 04/25/18 04:05 Gram Stain - Final Sputum, Expectorated/Coughed Respiratory Culture - Preliminary Presumptive C albicans 04/22/18 09:55 Blood Culture - Preliminary Blood Culture (Wb) - Arm Right No growth in 48 hours. 04/22/18 09:48 Blood Culture - Preliminary Blood Culture (Wb) - Anticubital Left No growth in 48 hours. 04/22/18 18:15 Urine Culture - Final Urine, Clean Catch Culture exhibits no growth. 04/23/18 18:15 Stool Occult Blood (XUAN) - Final Stool Occult Blood Positive 04/22/18 15:58 Respiratory Panel (PCR) - Final Mucosa - Nose Influenza A (Subtype H3) Laboratory Tests Past 24 Hrs 04/26/18 06:45 Hemoglobin A1c 8.6 H POC Glucose 04/26/18 04/26/18 04/25/18 11:18 06:58 21:46 POC Glucose 404 H 215 H 348 H 04/25/18 16:17 POC Glucose 318 H Medical Necessity - Tobacco Use Smoking Status: Never smoker - not currently Tobacco Use: Non-smoker Assessment/Plan All Active Problems Influenzal pneumonia (Acute) Sepsis (Acute) Hyperglycemia due to type 2 diabetes mellitus (Acute) Melena (Acute) Impressions 1. Severe sepsis due to community-acquired pneumonia -likely viral due to influenza A 2. Acute respiratory failure with hypoxemia 3. Hypokalemia 4. Hypertension 5. Diabetes mellitus type 2 with marked insulin resistant on U5 100 insulin- hemoglobin A1c is 8.6 6. Former smoker 7. Hyponatremia-likely pseudohyponatremia secondary to hyperglycemia 8. Hematochezia-will follow up with Dr. Stockton as an outpatient for endoscopy Obtain CT chest Continue antibiotics but, suspect the PNA is viral Continue to adjust insulin to achieve good blood sugar control with all blood sugars less than 200 Code Visit Inpatient E&M: 57976 Subs Hosp L2
[2018-04-26 16:51] LABS: Bedside Glucose > 500 mg/dL (70-110)
[2018-04-26 18:16] LABS: Bedside Glucose 493 mg/dL (70-110)
[2018-04-26] MEDS: Insulin Lispro 100 UNIT/ML INSULN.PEN 20 UNIT SC (18:43)
[2018-04-26] MEDS: guaiFENesin 1,200 MG Tablet 1200 MG PO (22:33)
[2018-04-26] MEDS: Atorvastatin Calcium 80 MG Tablet PO (22:42)
[2018-04-26] MEDS: traMADol 50 MG Tablet PO (22:47)
[2018-04-26 22:51] LABS: Bedside Glucose 406 mg/dL (70-110)
[2018-04-27] VITALS (20 sets, daily range): BP systolic 115–159; BP diastolic 68–76; PULSE 68–111; RESP 16–22; TEMP 36.6–37.2; O2SAT 83–95
[2018-04-27] MEDS: Acetaminophen 325 MG Tablet 650 MG PO (01:54)
[2018-04-27] MEDS: Hydrocortisone 2.5% Crm 1 APPLIC TOPICAL ×2 (07:04→21:50)
[2018-04-27] MEDS: Sucralfate 1 GM Tablet PO ×3 (07:05→17:09)
[2018-04-27 07:21] LABS: Bedside Glucose 174 mg/dL (70-110)
[2018-04-27] MEDS: Ipratropium/Albuterol Sulfate 3 ML AMPUL.NEB INHALATION ×4 (07:58→19:55)
[2018-04-27] MEDS: predniSONE 20 MG Tablet 40 MG PO (08:41)
[2018-04-27] MEDS: Pantoprazole Sodium 20 MG Tablet PO (08:41)
[2018-04-27] MEDS: Metoprolol(XL)Succ 100 MG Tablet PO (08:41)
[2018-04-27] MEDS: Insulin Lispro 100 UNIT/ML INSULN.PEN 14 UNIT SC ×2 (08:42→11:55)
[2018-04-27] MEDS: Insulin Lispro 100 UNIT/ML INSULN.PEN SQ ×4 (08:43→21:47)
[2018-04-27] MEDS: Ceftriaxone 1 GM/50 ML BAG IV (08:43)
[2018-04-27] MEDS: Glucerna Shake 120 ML LIQUID PO (08:43)
[2018-04-27] MEDS: guaiFENesin 1,200 MG Tablet 1200 MG PO (11:55)
[2018-04-27 12:11] LABS: Bedside Glucose 407 mg/dL (70-110)
--- NOTE | 2018-04-27 14:11 | PN_ITS ---
Patient Problems: Active and Suspected Problems Influenzal pneumonia (Acute) Sepsis (Acute) Hyperglycemia due to type 2 diabetes mellitus (Acute) Melena (Acute) Subjective: #6 antibiotics She continues to be hypoxic and is currently 94% on 5 L nasal cannula. Earlier today she was 83% on a 4 L nasal cannula. She gets tachycardic with exertion. Blood pressure is stable. blood sugars are still very erratic. She denies CP. still coughing. Now c/o a rash - medial thighs - she thinks it may be the Mucinex Objective: Physical Exam General: Alert, Oriented x3, Cooperative, Well developed, Well nourished HEENT: Atraumatic, PERRLA Oral: Dry Mucosa Neck: Supple, No Nodes, Trachea Midline Lungs: Diminished, - - She is tachypneic even at rest and has conversational dyspnea on 4-5 L of nasal O2. Breath sounds are very diminished. No rales. Occasional rhonchi. there are a few opening sounds Cardiovascular: Regular rate, Regular Rhythm, Normal S1, Normal S2, No Gallop, Tachycardic - With even minimal exertion Abdomen: Bowel Sounds Present, Soft, Non Tender, Non-Distended Extremities: No clubbing, No cyanosis, Edema - Ankle Neurological: Cranial nerves II-XII grossly intact, Neuro grossly intact Psych/Mental Status: Normal Affect, Appropriate - Physical Exam Vital Signs Temp Pulse Resp BP Pulse Ox 98 F 107 H 16 159/76 H 94 04/27/18 09:30 04/27/18 11:16 04/27/18 11:16 04/27/18 09:30 04/27/18 10:36 Oxygen Flow Rate (L/min) 5 Oxygen Delivery Method Nasal Cannula Weight: 161 lb 6.054 oz Body Mass Index (BMI) 30.3 Intake and Output for Last 24 Hours 04/25/18 04/26/18 04/27/18 23:59 23:59 23:59 Intake Total 2289 / 2289 1257.3 / 1257.3 930 / 930 Output Total 2500 / 2500 800 / 800 1974 Balance -211 / -211 457.3 / 457.3 -1045 / -1045 Microbiology Past 72 Hours 04/22/18 09:55 Blood Culture - Final Blood Culture (Wb) - Arm Right No growth in 5 days. 04/22/18 09:48 Blood Culture - Final Blood Culture (Wb) - Anticubital Left No growth in 5 days. 04/25/18 04:05 Gram Stain - Final Sputum, Expectorated/Coughed Respiratory Culture - Final Presumptive C albicans POC Glucose 04/27/18 04/27/18 04/26/18 11:51 07:03 22:21 POC Glucose 407 H 174 H 406 H 04/26/18 04/26/18 18:12 16:43 POC Glucose 493 H* > 500 H* Medical Necessity - Tobacco Use Smoking Status: Never smoker - not currently Tobacco Use: Non-smoker Assessment/Plan All Active Problems Influenzal pneumonia (Acute) Sepsis (Acute) Hyperglycemia due to type 2 diabetes mellitus (Acute) Melena (Acute) Impressions 1. Severe sepsis due to community-acquired pneumonia -likely viral due to influenza A 2. Acute respiratory failure with hypoxemia 3. Hypokalemia 4. Hypertension 5. Diabetes mellitus type 2 with marked insulin resistant on U5 100 insulin- hemoglobin A1c is 8.6 6. Former smoker 7. Hyponatremia-likely pseudohyponatremia secondary to hyperglycemia 8. Hematochezia-will follow up with Dr. Stockton as an outpatient for endoscopy I am concerned about her going home by herself with her oxygen requirement. She is also very fatigued and gets markedly short of breath with exertion. We will consult Dr. Bravo regarding the crazy paving which I suspect may be a ARDS Recheck lab in the a.m. Code Visit Inpatient E&M: 06780 Subs Hosp L2
--- NOTE | 2018-04-27 15:53 | CASEMGMT ---
Physician feels patient would benefit from a SNF stay due to her breathing. SW spoke with patient about this and she said she would think about it. She said she would prefer to go to a facility closer to where she lives in [place]. She asked SW to check with Laura Barrientos. SW will work on this for patient. Orin EASON MSW
[2018-04-27 17:01] LABS: Bedside Glucose 280 mg/dL (70-110)
[2018-04-27] MEDS: Insulin Lispro 100 UNIT/ML INSULN.PEN 24 UNIT SC (17:55)
[2018-04-27 21:56] LABS: Bedside Glucose 335 mg/dL (70-110)
[2018-04-27] MEDS: traMADol 50 MG Tablet PO (23:56)
[2018-04-28] VITALS (22 sets, daily range): BP systolic 116–153; BP diastolic 53–80; PULSE 78–110; RESP 12–24; TEMP 36.4–37.6; O2SAT 92–98
[2018-04-28] MEDS: Acetaminophen 325 MG Tablet 650 MG PO (05:47)
[2018-04-28 06:57] LABS: Hematocrit 39.3 % (37-47); Hemoglobin 12.8 g/dl (12.0-15.0); Mean Corp Hgb Conc 32.6 g/gl (32-36); Mean Corpuscular Hgb 29.1 pg (27.0-32.0); Mean Corpuscular Volume 89.3 fL (81-99); Mean Platelet Vol. 9.5 fl (6.2-12.0); Platelet Count 479 K/mm3 (150-450); RBC Distribution Width CV 16.4 % (11.6-14.6); RBC Distribution Width SD 52.9 fl (35.1-43.9); White Blood Count 19.4 K/mm3 (4.4-11.0)
[2018-04-28 07:01] LABS: Bedside Glucose 77 mg/dL (70-110)
[2018-04-28 07:01] LABS: Scan Indicated on CBC? Y/N NO
[2018-04-28] MEDS: Ipratropium/Albuterol Sulfate 3 ML AMPUL.NEB INHALATION ×4 (07:20→19:57)
[2018-04-28 07:46] LABS: ALB/GLOB Ratio 0.4 RATIO (0.9-2.4); AST(SGOT) 51 U/L (15-37); Alanine Aminotransfer ALT/SGPT 118 U/L (13-56); Albumin, Serum 2.5 g/dL (3.2-5.0); Alkaline Phosphatase 129 U/L (45-117); Anion Gap 8 (5-15); BUN 13 mg/dL (7-18); BUN/Creat Ratio 20.2 RATIO (10-20); Calcium,Total 9.6 mg/dL (8.5-10.1); Chloride 95 mmol/L (98-107); Cholesterol 115 mg/dL (200); Creatinine, Serum 0.64 mg/dL (0.55-1.02); EST Glomerular Filtration Rate 96 mL/min (>60); Est Glom Filt Rate - Afr Amer 116 mL/min (>60); Estimated Creatinine Clearance 39.63 ml/min; Globulin 5.6 g/dL (2.2-4.2); Glucose 71 mg/dL (74-106); High Density Lipoprotein 23 mg/dL; Magnesium 1.8 mg/dL (1.6-2.6); Phosphorus 4.2 mg/dL (2.5-4.9); Potassium 3.4 mmol/L (3.5-5.1); Protein, Total 8.1 g/dL (6.4-8.2); Sodium Level 136 mmol/L (136-145); Triglycerides 154 mg/dL; Very Low Density Lipoprotein 31 mg/dL (5-40)
[2018-04-28] MEDS: predniSONE 20 MG Tablet 40 MG PO (08:36)
[2018-04-28] MEDS: Glucerna Shake 120 ML LIQUID PO ×3 (09:54→20:51)
--- NOTE | 2018-04-28 10:03 | PCM.CONS.GEN ---
Reason for Consult Date of Consultation: 04/28/18 Reason for Consultation: Acute respiratory failure with suspected ARDS History of Present Illness: The patient is a 72-year-old female, with a history as outlined below, who initially presented to the emergency department on April 22 with complaints of a cough and shortness of breath. The patient states that in the days leading up to her hospitalization, she was placed empirically on Tamiflu by her primary care provider. She does have an extensive smoking history, having quit completely approximately 5 years ago. 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 Her main symptoms include that of exertional shortness of breath and a cough which has essentially been nonproductive of sputum. She denies a history of autoimmune disorder. 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 She has lived in [place] her entire life. On presentation to the emergency department, the patient was noted to be febrile, tachycardic and a bit hypotensive. In addition, she was noted to be hypoxic, requiring supplemental oxygen via nasal cannula. The patient initially had an elevated white blood cell count of 14,000. Initial plain film chest x-ray revealed bilateral pulmonary infiltrates. The patient was subsequently diagnosed with influenza A. The patient had apparently been started on Tamiflu 3 days prior to her presentation to the emergency room. She was started on ceftriaxone and azithromycin. The patient's hospital course has been complicated by occult positive stool. The patient was evaluated by surgery who recommended outpatient upper and lower endoscopy. The patient has continued to require a large amount of supplemental oxygen. Her white blood cell count is elevated this morning to 19,000. While the patient is currently afebrile, she is requiring 6 L/min of supplemental oxygen. The patient subsequently underwent a CT chest on , which revealed significant bilateral groundglass changes. Past Medical History Past Medical History (Chronic Problems): Chronic Problems Hyperlipidemia (Chronic) Hypertension (Chronic) Type 2 diabetes mellitus (Chronic) Allergies No Known Allergies Allergy (Verified 04/21/18 11:18) Home Medications: Ambulatory Orders Medication Instructions Recorded Insulin U-500 [Humulin R U-500 100 units SC BIDAC 04/21/18 ([facility])] Metformin HCl [Glucophage Xr] 1,500 mg PO DAILY 04/21/18 Rosuvastatin Calcium [Crestor] 40 mg PO QHS 04/21/18 traMADol [Ultram (G)] 50 mg PO BID PRN PRN 04/21/18 Ergocalciferol (Vitamin D2) 50,000 unit PO QMONTH 04/22/18 [Vitamin D2] Metoprolol(XL)Succ [Toprol Xl 100 mg PO DAILY 04/22/18 ([facility])] Surgical History: hysterectomy, - - Cervical laminectomy, hemorrdoidectomy Psychiatric History: No pertinent psych hx VP PURCHASING History: No pertinent VP PURCHASING history Lives: Alone, - - at home Smoking Status: Never smoker - not currently Tobacco Use: Non-smoker Alcohol: None Drugs: None - *Family History Maternal History Items: No pertinent history Paternal History Items: Heart Disease Review of Systems Constitutional: Reports: Fatigue. Denies: Chills, Fever Eyes: Denies: Blurred vision, Double vision HEENT: Denies: Head Aches, Sinus Congestion, Sinus Drainage Cardiovascular: Denies: Chest Pain, Palpitations Respiratory: Reports: Cough, Shortness of Breath, Wheezing Gastrointestinal: Denies: Abdominal Pain, Nausea, Vomiting Genitourinary: Denies: Dysuria Musculoskeletal: Denies: Joint Pain, Joint Tenderness Skin: Reports: Rash Neurological: Denies: Numbness, Tingling, Focal weakness Psychiatric: Denies: Anxiety, Depression, Homicidal Ideations, Suicidal Ideations Hematologic/ Lymphatic: Denies: Easy Bruising, Easy Bleeding Patient Problems: Active and Suspected Problems Influenzal pneumonia (Acute) Sepsis (Acute) Hyperglycemia due to type 2 diabetes mellitus (Acute) Melena (Acute) Objective: The patient's most recent lab work, culture data and imaging studies have all been personally reviewed. Respiratory viral panel was positive for influenza A. Blood and urine cultures have shown no growth to date. Strep and urine Legionella antigens were both negative. Sputum culture only revealed presumptive Dorita albicans. - Physical Exam General: Alert, Cooperative, No apparent distress HEENT: Atraumatic, PERRLA, Normocephalic Oral: No Gingival or Mucosal Lesions/ Ulcerations Neck: Supple, No Nodes, Trachea Midline Lungs: Diminished, Wheezes, - - Bibasilar rales are present as well. Cardiovascular: Regular rate, Regular Rhythm, Normal S1, Normal S2 Abdomen: Bowel Sounds Present, Soft, Non Tender, Non-Distended Extremities: No clubbing, No cyanosis, No edema Skin: - - Maculopapular rash present over proximal medial thighs. Musculoskeletal: No Tenderness to Palpation of Joints or Extremities, No Muscle Wasting Lymphatic: No Cervical, Supraclavicular, or Inguinal Adenopathy Neurological: Cranial nerves II-XII grossly intact, Neuro grossly intact Psych/Mental Status: Normal Affect, Appropriate Vital Signs Temp Pulse Resp BP Pulse Ox 36.9 C 85 20 H 135/53 H 92 04/28/18 06:41 04/28/18 07:20 04/28/18 07:20 04/28/18 06:41 04/28/18 07:40 Oxygen Flow Rate (L/min) 6 Oxygen Delivery Method Nasal Cannula Weight: 161 lb 2.526 oz Body Mass Index (BMI) 30.3 Intake and Output for Last 24 Hours 04/26/18 04/27/18 04/28/18 23:59 23:59 23:59 Intake Total 1257.3 / 1257.3 2380 / 2380 300 / 300 Output Total 800 / 800 3675 / 3675 200 / 200 Balance 457.3 / 457.3 -1295 / -1295 100 / 100 Microbiology Past 72 Hours 04/22/18 09:55 Blood Culture - Final Blood Culture (Wb) - Arm Right No growth in 5 days. 04/22/18 09:48 Blood Culture - Final Blood Culture (Wb) - Anticubital Left No growth in 5 days. 04/25/18 04:05 Gram Stain - Final Sputum, Expectorated/Coughed Respiratory Culture - Final Presumptive C albicans Laboratory Tests Past 24 Hrs 04/28/18 04/28/18 06:25 06:25 WBC 19.4 H RBC 4.40 Hgb 12.8 Hct 39.3 MCV 89.3 MCH 29.1 MCHC 32.6 RDW 16.4 H RDW Differential 52.9 H Plt Count 479 H MPV 9.5 Sodium 136 Potassium 3.4 L Chloride 95 L Carbon Dioxide 33.0 H Anion Gap 8 BUN 13 Creatinine 0.64 Estim Creat Clear Calc 39.63 Est GFR (MDRD) Af Amer 116 Est GFR (MDRD) Non-Af 96 BUN/Creatinine Ratio 20.2 H Glucose 71 L Calcium 9.6 Phosphorus 4.2 Magnesium 1.8 Total Bilirubin 0.60 AST 51 H ALT 118 H Alkaline Phosphatase 129 H Total Protein 8.1 Albumin 2.5 L Globulin 5.6 H Albumin/Globulin Ratio 0.4 L Triglycerides 154 Cholesterol 115 LDL Cholesterol 61 VLDL Cholesterol 31 HDL Cholesterol 23 L POC Glucose 04/28/18 04/27/18 04/27/18 06:45 21:38 16:48 POC Glucose 77 335 H 280 H 04/27/18 11:51 POC Glucose 407 H Clinical Impression(s) from Imaging Studies Chest X-Ray 04/22/18 09:59 IMPRESSION: Progressive bilateral pulmonary infiltrates worse in the right hemithorax. Electronically Signed: Luca Gupta, at 10:31 EST , Service support , Chest CT 04/25/18 15:16 IMPRESSION: Mediastinal lymphadenopathy. Extensive bilateral pulmonary groundglass infiltrates as described above, presenting a pattern of crazy paving. Differential considerations of this pattern include acute respiratory distress syndrome, bacterial pneumonia, pulmonary alveolar proteinosis, drug induced pneumonitis, pulmonary edema, pneumonia of atypical organisms, among multiple other possible etiologies. Somewhat favoring infectious etiology given the presence of mediastinal lymphadenopathy. There is no apparent subpleural nodularity in the lungs but consider also the possibility of sarcoidosis with a combination of pulmonary parenchymal abnormalities and mediastinal lymphadenopathy. Pulmonology consultation is recommended. The patient may benefit from follow-up high-resolution chest CT optimized for assessment of the interstitium. Electronically Signed: Mars Samuels MD at 16:28 EDT Tel , Service support , Assessment/Plan All Active Problems Influenzal pneumonia (Acute) Sepsis (Acute) Hyperglycemia due to type 2 diabetes mellitus (Acute) Melena (Acute) RECOMMENDATIONS: 1. Obtain arterial blood gas. 2. Check MRSA screen 3. Obtain echocardiogram 4. Potassium repletion 5. Wean supplemental oxygen to maintain saturations at or above 90%. 6. Continue antibiotics 7. Continue bronchodilators and steroids as ordered. IMPRESSIONS: 1. Acute hypoxemic respiratory failure The patient has been maintained on antimicrobials and treatment for presumptive community-acquired pneumonia. In addition, the patient was noted to be positive for influenza A and subsequently received Tamiflu. Her recent chest CT revealed diffuse bilateral groundglass changes. These findings noted on chest CT are very nonspecific in nature and could represent infection, edema or an inflammatory process. I am first going to start by obtaining an arterial blood gas to ensure that the patient is not retaining any CO2. She does have an extensive smoking history and may certainly have underlying obstructive lung disease. We will also plan to check a surface echocardiogram as well. If the patient's pulmonary workup does not reveal any abnormalities, may need to consider empirically broadening the patient's antimicrobials. 2. Extensive tobacco dependency, now in remission Recommend outpatient pulmonary function studies to evaluate for any underlying obstructive lung disease. For now, recommend continuing scheduled bronchodilators as ordered. 3. Melena Outpatient surgery follow-up currently planned. 4. Hypokalemia/diabetes/hypertension Complicates care, management, recovery and prognosis. Electrolyte repletion as indicated. Continue home medications. This note was generated with [employer] software. It may contain incorrect words, spelling, and punctuation that were not noted in checking the note before signing. Code Visit Inpatient E&M: 30292 Init Hosp L3
[2018-04-28] MEDS: Ceftriaxone 1 GM/50 ML BAG IV (10:08)
--- NOTE | 2018-04-28 10:10 | ECHOD_ITS ---
Reason For Study: DYSPNEA Procedure This was a 2D Doppler, Color Flow transthoracic echocardiogram. Technically difficult parasternal images. Pt sitting upright due to SOB -on 5L O2. Exam performed portable in patient room. Left Ventricle Normal size and thickness. The estimated ejection fraction is 75 %. Stage 1 diastolic dysfunction. No regional wall motion abnormalities noted. Right Ventricle Normal size and thickness. Normal systolic function. Atria Normal left atrium. Normal right atrium. Normal atrial septum. Mitral Valve The mitral valve is structurally normal. No prolapse or stenosis seen. Tricuspid Valve Normal tricuspid valve. Unable to estimate RV systolic pressure due to inadequate jet, pulmonary artery pressure probably normal. Aortic Valve Trisinus/trileaflet aortic valve. Moderate diffuse aortic valve thickening. Mild focal aortic valve calcification. Moderate restriction of the aortic valve. Mild to moderate aortic stenosis. Peak aortic valve gradient 35 mmHg. Mean aortic valve gradient 20 mmHg. Calculated aortic valve area (continuity equation) is 1.7 cm2. Pulmonic Valve The pulmonic valve is not well visualized. Great Vessels Normal aortic root. Normal arch. Normal inferior vena cava. Inferior vena cava collapse with sniff. Pericardium/Pleural No pericardial effusion. MMode/2D Measurements & Calculations LVIDd: 3.5 cm IVSd: 1.0 cm LVOT diam: 2.0 cm LVIDs: 2.4 cm LVPWd: 1.0 cm LVOT area: 3.1 cm2 RVDd: 3.1 cm FS: 30.0 % Ao root diam: 2.8 cm LAV(MOD-bp): 30.9 ml LVAd ap4: 25.1 cm2 LAV(MOD-bp) Indexed: 20.1 ml/m2 EDV(MOD-sp4): 63.9 ml LAV(MOD-sp2): 36.0 ml EDV(sp4-el): 66.8 ml LAV(MOD-sp4): 24.1 ml LVAs ap4: 15.2 cm2 ESV(MOD-sp4): 26.4 ml ESV(sp4-el): 27.8 ml EF(MOD-sp4): 58.7 % EF(sp4-el): 58.3 % SV(MOD-sp4): 37.5 ml SV(sp4-el): 38.9 ml LA A4 area: 11.8 cm2 LA dimension(2D): 3.6 cm RA A4 area: 11.3 cm2 Time Measurements MV dec time: 0.24 sec Doppler Measurements & Calculations MV E max jairon: 75.1 cm/sec Lat Peak E' Jairon: 6.9 cm/sec Med Peak E' Jairon: 6.4 cm/sec MV A max jairon: 132.8 cm/sec E/E' lat: 10.9 E/E' med: 11.7 MV E/A: 0.57 Ao V2 max: 272.1 cm/sec LV V1 max: 149.6 cm/sec SV(LVOT): 86.0 ml Ao max P.7 mmHg LV V1 max P.9 mmHg Ao V2 mean: 191.3 cm/sec LV V1 mean P.4 mmHg Ao mean P.9 mmHg LV V1 mean: 105.6 cm/sec Ao V2 VTI: 45.7 cm LV V1 VTI: 28.2 cm CHIP(I,D): 1.9 cm2 CHIP(V,D): 1.7 cm2 Interpretation Summary The estimated ejection fraction is 75 %. Stage 1 diastolic dysfunction. Unable to estimate RV systolic pressure due to inadequate jet, pulmonary artery pressure probably normal. Mild to moderate aortic stenosis. Compared to echo report dated 11/02/2008, LV function has remained the same, but pt now appears to have mild to moderate aortic stenosis. Ordering Physician: Joselito Bravo D.O. Referring Physician: KRISTIN MANRIQUEZ CHI Performed By: Akiko Ybarra, SANTIAGO, RVT
--- NOTE | 2018-04-28 10:12 | CON.PCM_ITS ---
Reason for Consult Date of Consultation: 04/28/18 Reason for Consultation: Acute respiratory failure with suspected ARDS History of Present Illness: The patient is a 72-year-old female, with a history as outlined below, who initially presented to the emergency department on April 22 with complaints of a cough and shortness of breath. The patient states that in the days leading up to her hospitalization, she was placed empirically on Tamiflu by her primary care provider. She does have an extensive smoking history, having quit completely approximately 5 years ago. She does not follow with a material damage adjuster at the present time, nor does she utilize inhalers or supplemental oxygen at her baseline. Her main symptoms include that of exertional shortness of breath and a cough which has essentially been nonproductive of sputum. She denies a history of autoimmune disorder. 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 She has lived in [place] her entire life. On presentation to the emergency department, the patient was noted to be febrile, tachycardic and a bit hypotensive. In addition, she was noted to be hypoxic, requiring supplemental oxygen via nasal cannula. The patient initially had an elevated white blood cell count of 14,000. Initial plain film chest x- ray revealed bilateral pulmonary infiltrates. The patient was subsequently diagnosed with influenza A. The patient had apparently been started on Tamiflu 3 days prior to her presentation to the emergency room. She was started on ceftriaxone and azithromycin. The patient's hospital course has been complicated by occult positive stool. The patient was evaluated by surgery who recommended outpatient upper and lower endoscopy. The patient has continued to require a large amount of supplemental oxygen. Her white blood cell count is elevated this morning to 19,000. While the patient is currently afebrile, she is requiring 6 L/min of supplemental oxygen. The patient subsequently underwent a CT chest on , which revealed significant bilateral groundglass changes. Past Medical History Past Medical History (Chronic Problems): Chronic Problems Hyperlipidemia (Chronic) Hypertension (Chronic) Type 2 diabetes mellitus (Chronic) Allergies No Known Allergies Allergy (Verified 04/21/18 11:18) Home Medications: Ambulatory Orders Medication Instructions Recorded Insulin U-500 [Humulin R U-500 100 units SC BIDAC 04/21/18 ([facility])] Metformin HCl [Glucophage Xr] 1,500 mg PO DAILY 04/21/18 Rosuvastatin Calcium [Crestor] 40 mg PO QHS 04/21/18 traMADol [Ultram (G)] 50 mg PO BID PRN PRN 04/21/18 Ergocalciferol (Vitamin D2) 50,000 unit PO QMONTH 04/22/18 [Vitamin D2] Metoprolol(XL)Succ [Toprol Xl 100 mg PO DAILY 04/22/18 ([facility])] Surgical History: hysterectomy, - - Cervical laminectomy, hemorrdoidectomy Psychiatric History: No pertinent psych hx SIZE TESTER History: No pertinent SIZE TESTER history Lives: Alone, - - at home Smoking Status: Never smoker - not currently Tobacco Use: Non-smoker Alcohol: None Drugs: None - *Family History Maternal History Items: No pertinent history Paternal History Items: Heart Disease Review of Systems Constitutional: Reports: Fatigue. Denies: Chills, Fever Eyes: Denies: Blurred vision, Double vision HEENT: Denies: Head Aches, Sinus Congestion, Sinus Drainage Cardiovascular: Denies: Chest Pain, Palpitations Respiratory: Reports: Cough, Shortness of Breath, Wheezing Gastrointestinal: Denies: Abdominal Pain, Nausea, Vomiting Genitourinary: Denies: Dysuria Musculoskeletal: Denies: Joint Pain, Joint Tenderness Skin: Reports: Rash Neurological: Denies: Numbness, Tingling, Focal weakness Psychiatric: Denies: Anxiety, Depression, Homicidal Ideations, Suicidal Ideations Hematologic/ Lymphatic: Denies: Easy Bruising, Easy Bleeding Patient Problems: Active and Suspected Problems Influenzal pneumonia (Acute) Sepsis (Acute) Hyperglycemia due to type 2 diabetes mellitus (Acute) Melena (Acute) Objective: The patient's most recent lab work, culture data and imaging studies have all been personally reviewed. Respiratory viral panel was positive for influenza A. Blood and urine cultures have shown no growth to date. Strep and urine Legionella antigens were both negative. Sputum culture only revealed presumptive Doirta albicans. - Physical Exam General: Alert, Cooperative, No apparent distress HEENT: Atraumatic, PERRLA, Normocephalic Oral: No Gingival or Mucosal Lesions/ Ulcerations Neck: Supple, No Nodes, Trachea Midline Lungs: Diminished, Wheezes, - - Bibasilar rales are present as well. Cardiovascular: Regular rate, Regular Rhythm, Normal S1, Normal S2 Abdomen: Bowel Sounds Present, Soft, Non Tender, Non-Distended Extremities: No clubbing, No cyanosis, No edema Skin: - - Maculopapular rash present over proximal medial thighs. Musculoskeletal: No Tenderness to Palpation of Joints or Extremities, No Muscle Wasting Lymphatic: No Cervical, Supraclavicular, or Inguinal Adenopathy Neurological: Cranial nerves II-XII grossly intact, Neuro grossly intact Psych/Mental Status: Normal Affect, Appropriate Vital Signs Temp Pulse Resp BP Pulse Ox 36.9 C 85 20 H 135/53 H 92 04/28/18 06:41 04/28/18 07:20 04/28/18 07:20 04/28/18 06:41 04/28/18 07:40 Oxygen Flow Rate (L/min) 6 Oxygen Delivery Method Nasal Cannula Weight: 161 lb 2.526 oz Body Mass Index (BMI) 30.3 Intake and Output for Last 24 Hours 04/26/18 04/27/18 04/28/18 23:59 23:59 23:59 Intake Total 1257.3 / 1257.3 2380 / 2380 300 / 300 Output Total 800 / 800 3675 / 3675 200 / 200 Balance 457.3 / 457.3 -1295 / -1295 100 / 100 Microbiology Past 72 Hours 04/22/18 09:55 Blood Culture - Final Blood Culture (Wb) - Arm Right No growth in 5 days. 04/22/18 09:48 Blood Culture - Final Blood Culture (Wb) - Anticubital Left No growth in 5 days. 04/25/18 04:05 Gram Stain - Final Sputum, Expectorated/Coughed Respiratory Culture - Final Presumptive C albicans Laboratory Tests Past 24 Hrs 04/28/18 04/28/18 06:25 06:25 WBC 19.4 H RBC 4.40 Hgb 12.8 Hct 39.3 MCV 89.3 MCH 29.1 MCHC 32.6 RDW 16.4 H RDW Differential 52.9 H Plt Count 479 H MPV 9.5 Sodium 136 Potassium 3.4 L Chloride 95 L Carbon Dioxide 33.0 H Anion Gap 8 BUN 13 Creatinine 0.64 Estim Creat Clear Calc 39.63 Est GFR (MDRD) Af Amer 116 Est GFR (MDRD) Non-Af 96 BUN/Creatinine Ratio 20.2 H Glucose 71 L Calcium 9.6 Phosphorus 4.2 Magnesium 1.8 Total Bilirubin 0.60 AST 51 H ALT 118 H Alkaline Phosphatase 129 H Total Protein 8.1 Albumin 2.5 L Globulin 5.6 H Albumin/Globulin Ratio 0.4 L Triglycerides 154 Cholesterol 115 LDL Cholesterol 61 VLDL Cholesterol 31 HDL Cholesterol 23 L POC Glucose 04/28/18 04/27/18 04/27/18 06:45 21:38 16:48 POC Glucose 77 335 H 280 H 04/27/18 11:51 POC Glucose 407 H Clinical Impression(s) from Imaging Studies Chest X-Ray 04/22/18 09:59 IMPRESSION: Progressive bilateral pulmonary infiltrates worse in the right hemithorax. Electronically Signed: Luca Gupta, at 10:31 EST , Service support , Chest CT 04/25/18 15:16 IMPRESSION: Mediastinal lymphadenopathy. Extensive bilateral pulmonary groundglass infiltrates as described above, presenting a pattern of crazy paving. Differential considerations of this pattern include acute respiratory distress syndrome, bacterial pneumonia, pulmonary alveolar proteinosis, drug induced pneumonitis, pulmonary edema, pneumonia of atypical organisms, among multiple other possible etiologies. Somewhat favoring infectious etiology given the presence of mediastinal lymphadenopathy. There is no apparent subpleural nodularity in the lungs but consider also the possibility of sarcoidosis with a combination of pulmonary parenchymal abnormalities and mediastinal lymphadenopathy. Pulmonology consultation is recommended. The patient may benefit from follow-up high-resolution chest CT optimized for assessment of the interstitium. Electronically Signed: Mars Samuels MD at 16:28 EDT Tel , Service support , Assessment/Plan All Active Problems Influenzal pneumonia (Acute) Sepsis (Acute) Hyperglycemia due to type 2 diabetes mellitus (Acute) Melena (Acute) RECOMMENDATIONS: 1. Obtain arterial blood gas. 2. Check MRSA screen 3. Obtain echocardiogram 4. Potassium repletion 5. Wean supplemental oxygen to maintain saturations at or above 90%. 6. Continue antibiotics 7. Continue bronchodilators and steroids as ordered. IMPRESSIONS: 1. Acute hypoxemic respiratory failure The patient has been maintained on antimicrobials and treatment for presumptive community-acquired pneumonia. In addition, the patient was noted to be positive for influenza A and subsequently received Tamiflu. Her recent chest CT revealed diffuse bilateral groundglass changes. These findings noted on chest CT are very nonspecific in nature and could represent infection, edema or an inflammatory process. I am first going to start by obtaining an arterial blood gas to ensure that the patient is not retaining any CO2. She does have an extensive smoking history and may certainly have underlying obstructive lung disease. We will also plan to check a surface echocardiogram as well. If the patient's pulmonary workup does not reveal any abnormalities, may need to consider empirically broadening the patient's antimicrobials. 2. Extensive tobacco dependency, now in remission Recommend outpatient pulmonary function studies to evaluate for any underlying obstructive lung disease. For now, recommend continuing scheduled bronchodilators as ordered. 3. Melena Outpatient surgery follow-up currently planned. 4. Hypokalemia/diabetes/hypertension Complicates care, management, recovery and prognosis. Electrolyte repletion as indicated. Continue home medications. This note was generated with [employer]ation software. It may contain incorrect words, spelling, and punctuation that were not noted in checking the note before signing. Code Visit Inpatient E&M: 45487 Init Hosp L3
[2018-04-28] MEDS: Metoprolol(XL)Succ 100 MG Tablet PO (10:38)
[2018-04-28 10:41] LABS: Base Excess 7 mmol/L (-2 to +2); Bicarbonate 30.9 mmol/L (22-26); Blood Gas Specimen Type ART; O2 Delivery Device Nasal Can; PO2 61 mmHG (75-100); SITE L Brachial; SO2 93 % (95-99); Time Given 1034; Total Carbon Dioxide 32 mmol/L; pCO2 40.8 mmHg (35-45); pH 7.49 (7.35-7.45)
[2018-04-28 10:49] LABS: GGTP 66 U/L (5-55)
[2018-04-28 10:56] LABS: BNP,B-Type NATRIURETIC PEPTIDE 53.6 pg/mL (0-100)
[2018-04-28] MEDS: Insulin Lispro 100 UNIT/ML INSULN.PEN 24 UNIT SC ×2 (12:10→17:13)
[2018-04-28] MEDS: Insulin Lispro 100 UNIT/ML INSULN.PEN SQ (12:10)
--- NOTE | 2018-04-28 12:10 | CASEMGMT ---
Social Work Phone call placed to [facility] and referral made. They do have beds available. They will review referral and make a decision. Danitza Teixeira LPN notified and will fax referral. SW met with pt in room and she confirmed she would like to go to [place] and is not interested in [facility] at this time. Pt name removed from TCU list. Plan: [facility], pending acceptance JS Hatch
--- NOTE | 2018-04-28 12:25 | CASEMGMT ---
Per NELLIE Adamson, referral to be sent to [facility]. NELLIE already spoke with facility. Referral faxed to [phone], confirmation received. Danitza Teixeira LPN Clinical Support
[2018-04-28 12:27] LABS: Bedside Glucose 306 mg/dL (70-110)
--- NOTE | 2018-04-28 13:56 | PN_ITS ---
Patient Problems: Active and Suspected Problems Influenzal pneumonia (Acute) Sepsis (Acute) Hyperglycemia due to type 2 diabetes mellitus (Acute) Melena (Acute) Subjective: All events of the past 24 hours of been reviewed. T-max is 99.6 at 5:45 AM this morning and current temp is 98.5. Vital signs are stable. She is able to maintain an oxygen saturation of 92% on a 6 L nasal cannula. Fluid balance since admission is +2374. All labs personally reviewed. The white blood cell count today has increased from 11.1 on 311 to 19.4 today. CBC shows a low potassium at 3.4 and a serum bicarb of 33. BUN is 13 with a creatinine of 0.64. Fasting blood sugar this morning is 71 and nursing held her Humalog insulin. Blood sugar at noon is back up to over 300. AST and ALT are increased at 51 and 118 respectively today. Phosphorus and magnesium are within normal limits. LDL is 61 and the HDL is 23. ABG done on a 6 L nasal cannula shows a pH of 7.49 with a PCO2 of 40 and a PO2 of 81. She was seen in consultation by Dr. Josleito Bravo from pulmonary today and I did discuss his findings with him and appreciate his input. An echocardiogram has been ordered. She tells me her breathing is worse today. She was very tachypneic after ambulating from the BR. She is looking more fatigued today. More sleepy. Dry cough. No hx of heart failure. Has never had a sleep study. - Physical Exam General: Alert - but tells me her thinking is a Little fuzzy, Cooperative HEENT: Atraumatic, PERRLA, EOMI, Normocephalic Oral: Moist Mucosa Neck: Supple, No JVD, Trachea Midline Lungs: Diminished, Rales - the tight wheezing she was having is better., Rhonchi Cardiovascular: Regular rate, Regular Rhythm, Normal S1, Normal S2, No rub noted, No Gallop, - - Telemetry-normal sinus rhythm and sinus tachycardia with no ectopy Abdomen: Bowel Sounds Present, Soft, Non Tender, Non-Distended Extremities: No cyanosis, No edema Skin: No rashes Neurological: Cranial nerves II-XII grossly intact, Neuro grossly intact Vital Signs Temp Pulse Resp BP Pulse Ox 98.5 F 95 18 131/80 H 92 04/28/18 12:10 04/28/18 12:10 04/28/18 12:10 04/28/18 12:10 04/28/18 12:10 Oxygen Flow Rate (L/min) 6 Oxygen Delivery Method Nasal Cannula Weight: 161 lb 2.526 oz Body Mass Index (BMI) 30.3 Intake and Output for Last 24 Hours 04/26/18 04/27/18 04/28/18 23:59 23:59 23:59 Intake Total 1257.3 / 1257.3 2380 / 2380 1030 / 1030 Output Total 800 / 800 3675 / 3675 200 / 200 Balance 457.3 / 457.3 -1295 / -1295 830 / 830 Microbiology Past 72 Hours 04/22/18 09:55 Blood Culture - Final Blood Culture (Wb) - Arm Right No growth in 5 days. 04/22/18 09:48 Blood Culture - Final Blood Culture (Wb) - Anticubital Left No growth in 5 days. 04/25/18 04:05 Gram Stain - Final Sputum, Expectorated/Coughed Respiratory Culture - Final Presumptive C albicans Laboratory Tests Past 24 Hrs 04/28/18 04/28/18 04/28/18 06:25 06:25 06:25 WBC 19.4 H RBC 4.40 Hgb 12.8 Hct 39.3 MCV 89.3 MCH 29.1 MCHC 32.6 RDW 16.4 H RDW Differential 52.9 H Plt Count 479 H MPV 9.5 Specimen Type Sample Site pH Bicarbonate Actual POC Total CO2 Base Excess O2 Saturation ABG pCO2 ABG pO2 O2 Delivery Device Liter Flow Blood Gas Notified Whom Blood Gas Notified Time Sodium 136 Potassium 3.4 L Chloride 95 L Carbon Dioxide 33.0 H Anion Gap 8 BUN 13 Creatinine 0.64 Estim Creat Clear Calc 39.63 Est GFR (MDRD) Af Amer 116 Est GFR (MDRD) Non-Af 96 BUN/Creatinine Ratio 20.2 H Glucose 71 L Calcium 9.6 Phosphorus 4.2 Magnesium 1.8 Total Bilirubin 0.60 GGT AST 51 H ALT 118 H Alkaline Phosphatase 129 H B-Natriuretic Peptide 53.6 Total Protein 8.1 Albumin 2.5 L Globulin 5.6 H Albumin/Globulin Ratio 0.4 L Triglycerides 154 Cholesterol 115 LDL Cholesterol 61 VLDL Cholesterol 31 HDL Cholesterol 23 L MRSA (PCR) 04/28/18 04/28/18 04/28/18 06:25 10:35 10:40 WBC RBC Hgb Hct MCV MCH MCHC RDW RDW Differential Plt Count MPV Specimen Type ART Sample Site L Brachial pH 7.49 H Bicarbonate Actual 30.9 H POC Total CO2 32 Base Excess 7 H O2 Saturation 93 L ABG pCO2 40.8 ABG pO2 61 L O2 Delivery Device Nasal Can Liter Flow 6.0 Blood Gas Notified Whom ICU Blood Gas Notified Time 1034 Sodium Potassium Chloride Carbon Dioxide Anion Gap BUN Creatinine Estim Creat Clear Calc Est GFR (MDRD) Af Amer Est GFR (MDRD) Non-Af BUN/Creatinine Ratio Glucose Calcium Phosphorus Magnesium Total Bilirubin GGT 66 H AST ALT Alkaline Phosphatase B-Natriuretic Peptide Total Protein Albumin Globulin Albumin/Globulin Ratio Triglycerides Cholesterol LDL Cholesterol VLDL Cholesterol HDL Cholesterol MRSA (PCR) Pending POC Glucose 04/28/18 04/28/18 04/27/18 12:02 06:45 21:38 POC Glucose 306 H 77 335 H 04/27/18 16:48 POC Glucose 280 H Medical Necessity - Tobacco Use Smoking Status: Never smoker - not currently Tobacco Use: Non-smoker Assessment/Plan All Active Problems Influenzal pneumonia (Acute) Sepsis (Acute) Hyperglycemia due to type 2 diabetes mellitus (Acute) Melena (Acute) Impressions 1. Severe sepsis due to community-acquired pneumonia -likely viral due to influenza A but was placed on antibiotics at admission and now has been on Rocephin for 6 days and has had 3 days of Azithromycin 2. Acute respiratory failure with hypoxemia 3. Hypokalemia 4. Hypertension 5. Diabetes mellitus type 2 with marked insulin resistant on U5 100 insulin- hemoglobin A1c is 8.6 6. Former smoker 7. Hyponatremia-likely pseudohyponatremia secondary to hyperglycemia 8. Hematochezia-will follow up with Dr. Stockton as an outpatient for endoscopy 9. Abnormal LFTs She is not improving and is actually worse today because she admits to being more SOB. WBC is increasing and the dose of the steroids has not changed. She is fatiguing and she is hyperventilating to keep the O2 up. Will check a stat PA and LAT CXR now. await the results of the MRSA nasal swab. Supplement potassium DC the SSI She is still eating so will continue the scheduled mealtime insulin and the Lantus Broaden the antibiotic spectrum If the CXR is worse consider CPAP or transfer to the ICU Code Visit Inpatient E&M: 71029 Subs Hosp L3
--- NOTE | 2018-04-28 14:22 | RAD_ITS ---
STUDY: X-RAY CHEST REASON FOR EXAM: Female, 72 years old. Shortness of breath. TECHNIQUE: PA and lateral views of the chest. COMPARISON: [facility] upright chest x-ray April 22, 2018; CT chest without contrast April 25, 2018. FINDINGS: The lungs are deeply expanded. Overall, the bilateral infiltrates are improved. Bibasilar ill-defined stranding densities persist, slightly improved even when compared to PA and lateral chest x-ray April 21, 2018. A rounded area of patchy density is now present in the medial left apex, superimposed on the costovertebral junction of the fourth rib. There is no demonstrated pleural abnormality. The heart size is upper normal. Normal mediastinum. Borderline fullness of the new. The pulmonary vascular pattern remains difficult to accurately evaluate in view of the superimposed densities There is stable atherosclerotic ossification of the aortic arch and descending thoracic aorta. There are stable multilevel degenerative changes and upper levoscoliosis of the visualized thoracic spine. Normal visualized ribs, clavicles, and shoulders. There is no demonstrated abnormality of the visualized soft tissue structures of the upper abdomen. RAD/Chest PA and Lateral IMPRESSION: 1. Improving bilateral infiltrates. A new rounded density is now seen in the medial left apex, however. 2. Borderline fullness of the new, likely reflecting the adenopathy noted on previous exam. The pulmonary vascular pattern remains difficult to accurately evaluate. Electronically Signed: Carlos Crockett MD at 17:38 EDT , Service support ,
[2018-04-28 14:43] LABS: M R Staph aureus DNA By PCR Negative (Negative); Probe Check PASS; Specimen Processing Control PASS
[2018-04-28 16:31] LABS: Base Excess 7 mmol/L (-2 to +2); Bicarbonate 30.9 mmol/L (22-26); Blood Gas Specimen Type ART; EPAP 5; FI02 50; IPAP 10; PO2 140 mmHG (75-100); RR 12; SITE L Radial; SO2 99 % (95-99); Time Given 1627; Total Carbon Dioxide 32 mmol/L; pCO2 44.2 mmHg (35-45); pH 7.45 (7.35-7.45)
[2018-04-28 17:01] LABS: Bedside Glucose 392 mg/dL (70-110)
[2018-04-28] MEDS: Atorvastatin Calcium 80 MG Tablet PO (20:51)
[2018-04-28] MEDS: traMADol 50 MG Tablet PO (20:51)
--- NOTE | 2018-04-28 20:52 | NURSING ---
Pt requesting meds.
[2018-04-28 22:00] LABS: Bedside Glucose 297 mg/dL (70-110)
--- NOTE | 2018-04-28 23:38 | CPS ---
pt refuses bipap at this time 95% on 6L nasal o2
[2018-04-29] VITALS (22 sets, daily range): BP systolic 96–151; BP diastolic 56–81; PULSE 80–113; RESP 16–22; TEMP 36.8–37.1; O2SAT 92–96
[2018-04-29] MEDS: Acetaminophen 325 MG Tablet 650 MG PO (02:59)
[2018-04-29 07:05] LABS: Bedside Glucose 87 mg/dL (70-110)
[2018-04-29] MEDS: Ipratropium/Albuterol Sulfate 3 ML AMPUL.NEB INHALATION ×4 (07:07→19:50)
--- NOTE | 2018-04-29 07:50 | PN_ITS ---
Patient Problems: Active and Suspected Problems Influenzal pneumonia (Acute) Sepsis (Acute) Hyperglycemia due to type 2 diabetes mellitus (Acute) Melena (Acute) Subjective: The patient was seen and examined at the bedside this morning. Events from the last 24 hours have been reviewed. The patient is currently afebrile, hemodynam ically stable and maintaining appropriate oxygen saturations on 6 L/min via nasal cannula. The patient is currently sitting in her bedside recliner. She reports little interval change in her breathing quality. She continues to experience shortness of breath with exertion. She does continue to have a cough, which is nonproductive in nature. Objective: The patient's most recent lab work, culture data and imaging studies have all been personally reviewed. Respiratory viral panel was positive for influenza A. Sputum culture dated April 25 was positive for presumptive Dorita albicans. - Physical Exam General: Alert, Cooperative, No apparent distress HEENT: Atraumatic, PERRLA, Normocephalic Oral: No Gingival or Mucosal Lesions/ Ulcerations Neck: Supple, No Nodes, Trachea Midline Lungs: No wheeze, No rales, Diminished Cardiovascular: Regular rate, Regular Rhythm, Normal S1, Normal S2, No murmurs Abdomen: Bowel Sounds Present, Soft, Non Tender, Obese Extremities: No clubbing, No cyanosis, No edema Skin: No breakdown Musculoskeletal: No Tenderness to Palpation of Joints or Extremities Lymphatic: No Cervical, Supraclavicular, or Inguinal Adenopathy Neurological: Neuro grossly intact Psych/Mental Status: Normal Affect, Appropriate Vital Signs Temp Pulse Resp BP Pulse Ox 37.0 C 93 21 H 113/66 93 04/29/18 03:45 04/29/18 07:20 04/29/18 07:20 04/29/18 03:45 04/29/18 07:40 Oxygen Flow Rate (L/min) 6 Oxygen Delivery Method Nasal Cannula Weight: 160 lb 14.999 oz Body Mass Index (BMI) 30.3 Intake and Output for Last 24 Hours 04/27/18 04/28/18 04/29/18 23:59 23:59 23:59 Intake Total 2380 / 2380 1590 / 1590 240 / 240 Output Total 3675 / 3675 200 / 200 700 / 700 Balance -1295 / -1295 1390 / 1390 -460 / -460 Microbiology Past 72 Hours 04/22/18 09:55 Blood Culture - Final Blood Culture (Wb) - Arm Right No growth in 5 days. 04/22/18 09:48 Blood Culture - Final Blood Culture (Wb) - Anticubital Left No growth in 5 days. 04/25/18 04:05 Gram Stain - Final Sputum, Expectorated/Coughed Respiratory Culture - Final Presumptive C albicans Laboratory Tests Past 24 Hrs 04/28/18 04/28/18 04/28/18 06:25 06:25 10:35 Specimen Type ART Sample Site L Brachial pH 7.49 H Bicarbonate Actual 30.9 H POC Total CO2 32 Base Excess 7 H O2 Saturation 93 L O2 % ABG pCO2 40.8 ABG pO2 61 L Respiration Rate O2 Delivery Device Nasal Can Liter Flow 6.0 EPAP IPAP Blood Gas Notified Whom ICU Blood Gas Notified Time 1034 GGT 66 H B-Natriuretic Peptide 53.6 MRSA (PCR) 04/28/18 04/28/18 10:40 16:27 Specimen Type ART Sample Site L Radial pH 7.45 Bicarbonate Actual 30.9 H POC Total CO2 32 Base Excess 7 H O2 Saturation 99 O2 % 50 ABG pCO2 44.2 ABG pO2 140 H Respiration Rate 12 O2 Delivery Device Bi / C PAP Liter Flow EPAP 5 IPAP 10 Blood Gas Notified Whom HOSP Blood Gas Notified Time 1627 GGT B-Natriuretic Peptide MRSA (PCR) Negative POC Glucose 04/29/18 04/28/18 04/28/18 06:49 21:57 16:33 POC Glucose 87 297 H 392 H 04/28/18 12:02 POC Glucose 306 H Clinical Impression(s) from Imaging Studies Chest X-Ray 04/22/18 09:59 IMPRESSION: Progressive bilateral pulmonary infiltrates worse in the right hemithorax. Electronically Signed: Luca Gupta, at 10:31 EST , Service support , Chest CT 04/25/18 15:16 IMPRESSION: Mediastinal lymphadenopathy. Extensive bilateral pulmonary groundglass infiltrates as described above, presenting a pattern of crazy paving. Differential considerations of this pattern include acute respiratory distress syndrome, bacterial pneumonia, pulmonary alveolar proteinosis, drug induced pneumonitis, pulmonary edema, pneumonia of atypical organisms, among multiple other possible etiologies. Somewhat favoring infectious etiology given the presence of mediastinal lymphadenopathy. There is no apparent subpleural nodularity in the lungs but consider also the possibility of sarcoidosis with a combination of pulmonary parenchymal abnormalities and mediastinal lymphadenopathy. Pulmonology consultation is recommended. The patient may benefit from follow-up high-resolution chest CT optimized for assessment of the interstitium. Electronically Signed: Mars Samuels MD at 16:28 EDT Tel , Service support , Chest X-Ray 04/28/18 14:22 IMPRESSION: 1. Improving bilateral infiltrates. A new rounded density is now seen in the medial left apex, however. 2. Borderline fullness of the new, likely reflecting the adenopathy noted on previous exam. The pulmonary vascular pattern remains difficult to accurately evaluate. Electronically Signed: Carlos Crockett MD at 17:38 EDT , Service support , Medical Necessity - Tobacco Use Smoking Status: Never smoker - not currently Tobacco Use: Non-smoker Assessment/Plan All Active Problems Influenzal pneumonia (Acute) Sepsis (Acute) Hyperglycemia due to type 2 diabetes mellitus (Acute) Melena (Acute) RECOMMENDATIONS: 1. Await echocardiogram results. 2. Continue to wean supplemental oxygen to maintain saturations at or above 90%. 3. Encourage incentive spirometer utilization. 4. Perform walking oximetry on 6 L/min and document saturations. 5. Consider broadening antimicrobial coverage. 6. Continue prednisone as ordered. IMPRESSIONS: 1. Acute hypoxemic respiratory failure The patient has been maintained on antimicrobials and treatment for presumptive community-acquired pneumonia. In addition, the patient was noted to be positive for influenza A and subsequently received Tamiflu. Her recent chest CT revealed diffuse bilateral groundglass changes. These findings noted on chest CT are very nonspecific in nature and could represent infection, edema or an inflammatory process. The patient does have an extensive smoking history and may certainly have underlying obstructive lung disease. Surface echocardiogram was completed this morning, but the report is currently pending. Given the lack of interval improvement in the patient's oxygenation status, recommend broadening antimicrobial coverage. Continue to wean oxygen as tolerated and encourage incentive spirometer use. I have asked that nursing perform a walking oximetry study to document the patient's exertional oxygen saturations on 6 L/min. Continue bronchodilators and prednisone as ordered. 2. Extensive tobacco dependency, now in remission Recommend outpatient pulmonary function studies to evaluate for any underlying obstructive lung disease. For now, recommend continuing scheduled bronchodilators as ordered. 3. Melena Outpatient surgery follow-up currently planned. 4. Diabetes/hypertension Complicates care, management, recovery and prognosis. Continue home medications. This note was generated with [email or web address] dictation software. It may contain incorrect words, spelling, and punctuation that were not noted in checking the note before signing. Code Visit Inpatient E&M: 74807 Subs Hosp L2
[2018-04-29] MEDS: predniSONE 20 MG Tablet 40 MG PO (08:28)
[2018-04-29] MEDS: Glucerna Shake 120 ML LIQUID PO ×4 (08:28→21:37)
[2018-04-29] MEDS: Ceftriaxone 1 GM/50 ML BAG IV (08:28)
[2018-04-29] MEDS: Insulin Lispro 100 UNIT/ML INSULN.PEN 18 UNIT SC (08:48)
[2018-04-29] MEDS: Metoprolol(XL)Succ 100 MG Tablet PO (10:28)
--- NOTE | 2018-04-29 10:45 | CASEMGMT ---
Addendum entered by Orin Clifford 04/29/18 16:14: Patient will have to be here through the weekend as [facility] cannot take her over the weekend. Orin [facility] Original Note: Addendum entered by Orin Clifford 04/29/18 12:26: SW spoke with patient and let her know the situation with [place]. She asked if she could go today. SW told her it would be up to the physician. SW called Michelle at [facility] and their O2 cutoff is 5-6L. They would be able to take patient today if she is ready. Orin [facility] Original Note: Addendum entered by Orin Clifford 04/29/18 12:06: SW received a return call from Michelle at [facility] and they cannot take patient over the weekend as they do not take patient's from external facilities on weekends. They could take her Wednesday. SW will have to check with physician to see when she thinks patient will be ready and if she will likely be ready over the weekend SW will talk with patient about other facilities. Orin [facility] Original Note: NELLIE called [facility] and spoke with Michelle regarding whether or not they can accept patient. She said they can take her and wknd would be fine. SW asked if they had a limit on O2 L flow. NELLIE told her patient was on 7 L yesterday and today she is on 6 L. She did not know and would have to check. Patient will go to [facility] into room 216. She said she would call NELLIE back later on today to see how patient is doing. Plan: [facility] pending patient being medically ready. Orin [facility] OT[facility]IST
[2018-04-29] MEDS: Insulin Lispro 100 UNIT/ML INSULN.PEN 24 UNIT SC ×2 (11:38→16:28)
[2018-04-29 12:01] LABS: Bedside Glucose 210 mg/dL (70-110)
[2018-04-29 16:36] LABS: Bedside Glucose 346 mg/dL (70-110)
--- NOTE | 2018-04-29 17:41 | TREXTCAR_ITS ---
- Diet 04/27/18 18:49 Diet: Cardiac: Calorie-Controlled Food consistency:: Regular Liquid Consistency:: Regular/Thin Is pt able to select menu?: Yes How many daily calories?: 1600 calorie - Routine Orders/Code Status Enema Type: Fleetz Enema Frequency: Daily PRN Suppository Type: Dulcolax 10mg Suppository Frequency: Daily PRN O2 Liters per Minute: 5-6 O2 Frequency: Continuous Keep PO Greater than or Equal to (%): 90 Routine Lab Work: - - cbc, BMP in 1 week - Therapies Weight Bearing: Full weight bearing Physical Therapy: Eval and Treat Occupational Therapy: Eval and Treat - Problem/Diagnosis (1) Severe sepsis Status: Acute Current Visit: Yes (2) Acute respiratory failure with hypoxemia Status: Acute Current Visit: Yes (3) Hypokalemia Status: Acute Current Visit: Yes (4) Diabetes mellitus type 2 in nonobese Status: Chronic Current Visit: Yes (5) Former smoker Status: Chronic Current Visit: Yes (6) Hematochezia Status: Acute Current Visit: Yes (7) Abnormal LFTs Status: Acute Current Visit: Yes (8) Influenzal pneumonia Status: Acute Current Visit: Yes (9) Melena Status: Ruled-out Comment: she had bright red blood per rectum Current Visit: Yes (10) Hyperlipidemia Status: Chronic Current Visit: No (11) Hypertension Status: Chronic Current Visit: No (12) Grade I diastolic dysfunction Status: Chronic Current Visit: Yes (13) Aortic stenosis Status: Chronic Comment: mild-moderate Current Visit: Yes - Allergies/Procedures Done in Hospital Allergies/Adverse Reactions: Allergies No Known Allergies Allergy (Verified 04/21/18 11:18) - Type of Care/Length of Stay Estimated LOS: Convalescent Care Less Than 30 days Type of Care Needed: Skilled Rehab Potential: Good Prognosis: Good - Additional Orders/Day of Discharge H&P will serve as current which was dated: 04/22/18 Day of Discharge: 04/29/18 - Dietary and Speech Recommendations Dietitian Recommendations/Changes: Rec diet change to 1600 calorie controlled, cardiac diet. - Follow Up Care Primary Care Physician: Tim Darden Chi, MD [Primary Care Provider] - Please follow up with your Primary Care Physician in: Following discharge from intermediate
--- NOTE | 2018-04-29 18:57 | PCM.DC.SUM ---
Discharge Date and Diagnosis - Problem List Patient Problems: Active and Suspected Problems Influenzal pneumonia (Acute) Severe sepsis (Acute) Acute respiratory failure with hypoxemia (Acute) Hypokalemia (Acute) Hematochezia (Acute) Abnormal LFTs (Acute) Date of Admission: 04/22/18 Date of Discharge: 04/29/18 - Primary Discharge Diagnosis Active and Suspected Problems Influenza pneumonia (Acute) Severe sepsis (Acute) Acute respiratory failure with hypoxemia (Acute) Hypokalemia (Acute) Hematochezia (Acute) Abnormal LFTs (Acute) maculopapular rash of unknown etiology ARDS suspected - Secondary Discharge Diagnosis Chronic Problems Hyperlipidemia (Chronic) Hypertension (Chronic) Diabetes mellitus type 2 in nonobese (Chronic) Former smoker (Chronic) Grade I diastolic dysfunction (Chronic) Aortic stenosis (Chronic) mild-moderate Hospital Course and Treatment Imaging Results: Clinical Impression(s) from Imaging Studies Chest X-Ray 04/22/18 09:59 IMPRESSION: Progressive bilateral pulmonary infiltrates worse in the right hemithorax. Electronically Signed: Luca Gupta, at 10:31 EST , Service support , Chest CT 04/25/18 15:16 IMPRESSION: Mediastinal lymphadenopathy. Extensive bilateral pulmonary groundglass infiltrates as described above, presenting a pattern of crazy paving. Differential considerations of this pattern include acute respiratory distress syndrome, bacterial pneumonia, pulmonary alveolar proteinosis, drug induced pneumonitis, pulmonary edema, pneumonia of atypical organisms, among multiple other possible etiologies. Somewhat favoring infectious etiology given the presence of mediastinal lymphadenopathy. There is no apparent subpleural nodularity in the lungs but consider also the possibility of sarcoidosis with a combination of pulmonary parenchymal abnormalities and mediastinal lymphadenopathy. Pulmonology consultation is recommended. The patient may benefit from follow-up high-resolution chest CT optimized for assessment of the interstitium. Electronically Signed: Mars Samuels MD at 16:28 EDT Tel , Service support , Chest X-Ray 04/28/18 14:22 IMPRESSION: 1. Improving bilateral infiltrates. A new rounded density is now seen in the medial left apex, however. 2. Borderline fullness of the new, likely reflecting the adenopathy noted on previous exam. The pulmonary vascular pattern remains difficult to accurately evaluate. Electronically Signed: Carlos Crockett MD at 17:38 EDT , Service support , Laboratory Results - last 24 hr 04/28/18 04/29/18 04/29/18 21:57 06:49 11:36 POC Glucose 297 H 87 210 H 04/29/18 16:26 POC Glucose 346 H Microbiology 04/22/18 09:55 Blood Culture (Wb) - Arm Right Blood Culture - Final No growth in 5 days. 04/22/18 09:48 Blood Culture (Wb) - Anticubital Left Blood Culture - Final No growth in 5 days. 04/25/18 04:05 Sputum, Expectorated/Coughed Gram Stain - Final 04/25/18 04:05 Sputum, Expectorated/Coughed Respiratory Culture - Final Presumptive C albicans 04/22/18 18:15 Urine, Clean Catch Urine Culture - Final Culture exhibits no growth. 04/23/18 18:15 Stool Stool Occult Blood (XUAN) - Final Occult Blood Positive 04/22/18 15:58 Mucosa - Nose Respiratory Panel (PCR) - Final Influenza A (Subtype H3) 04/22/18 18:15 Urine, Clean Catch Streptococcus pneumoniae Antigen (M - Final 04/22/18 18:15 Urine, Clean Catch Legionella Antigen - Final Dr. Joselito Bravo-pulmonary medicine Dr. Schuyler Stockton-general surgery Operations: None Procedures: 2-D Echocardiogram - Interpretation Summary The estimated ejection fraction is 75 %. Stage 1 diastolic dysfunction. Unable to estimate RV systolic pressure due to inadequate jet, pulmonary artery pressure probably normal. Mild to moderate aortic stenosis. Compared to echo report dated 11/02/2008, LV function has remained the same, but pt now appears to have mild to moderate aortic stenosis. Summary of Care Provided: The patient is a 72-year-old female with a past medical history of hyperlipidemia, hypertension and diabetes mellitus type 2 who presented to the emergency room on 04/22/2018 complaining of cough and shortness of breath. She had been diagnosed with influenza and started on Tamiflu 3 days prior to presentation to the emergency room. Temp in the ER was 100.3 and the heart rate was 103. The respiratory rate was 18 and she was 94% saturated on room air. Blood pressure was 112/67. White blood cell count was elevated at 13.8 with a left shift. Hemoglobin and platelets were within normal limits. Sodium was low at 131 and potassium was low at 3.3. BUN was 12 and the creatinine was 0.8. Lactic acid was 1.4 and the AST was mildly elevated at 60 with an ALT of 36. Troponin was within normal limits at 0.043. A UA showed 10-25 WBCs per high-power field with 5-10 squamous epithelial cells and no bacteria. Chest x-ray showed multiple bilateral infiltrates. She was admitted to the hospital with a diagnosis of sepsis secondary to community-acquired pneumonia with recent history of influenza A. She was started on ceftriaxone and azithromycin. Tamiflu was continued. She was started on aerosolized bronchodilators and steroids. Respiratory panel was positive for influenza A subtype 3. Blood cultures had no growth in 5 days. A urine culture had no growth. Legionella and streptococcal antigens in the urine were negative. Sputum Gram stain grew presumptive Dorita albicans. She complained of black tarry stools and Dr. Stockton from general surgery was consulted. He planned a EGD and a colonoscopy however, the hemoglobin and hematocrit remained within normal limits despite a heme positive stool. Her tenuous respiratory status precluded endoscopy and it will be deferred until some time in the future when she has recovered. She had persistent wheezing and continued to require 5-6 LPM of nasal O2 despite appropriate treatment. a CT scan of the chest was obtained and showed crazy paving which I presumed to represent ARDS. Dr. Bravo from pulmonary was consulted and he recommended a surface ECHO and a ABG. An ABG on 6 L showed a pH of 7.49, PCO2 of 40 and a PO2 of 61. She was placed on BiPAP with 10/5 settings and the pH was 7.45 with a PCO2 of 44 and a PO2 of 140. Overnight she refused to wear the BIPAP but, the following morning she is finally improved with nmo wheezing. The ECHO showed mild and a normal EF. On 04/29/2018 she was stable and afebrile. She was maintaining appropriate oxygen saturations on 5-6 L/min via nasal cannula. She was less tachypneic and her lungs had no wheezing on that date. She was discharged to a SNF prior to eventually returning home. I recommended she follow up with pulmonary where she normally lives in the future for PFT's. I also suggested she follow up with a mica laminating machine feeder to monitor the periodically for progression. - Physical Exam General: Alert, not tachypneic at rest today HEENT: Atraumatic, PERRLA, EOMI, Normocephalic Oral: Moist Mucosa, no mucosal lesions Neck: Supple, No JVD, Trachea Midline Lungs: Diminished, clear to auscultation, symmetric chest expansion, no conversational dyspnea today, not tachypneic, no accessory muscle use Cardiovascular: Regular rate, Regular Rhythm, Normal S1, Normal S2, No rub noted, No Gallop, - - Telemetry-normal sinus rhythm and sinus tachycardia with no ectopy Abdomen: Bowel Sounds Present, Soft, Non Tender, Non-Distended Extremities: No cyanosis, No edema Skin: No rashes Neurological: Cranial nerves II-XII grossly intact, Neuro grossly intact This note was generated with [employer] dictation software. It may contain incorrect words, spelling, and punctuation that were not noted in checking the note before signing. Patient Problems: Active and Suspected Problems Influenzal pneumonia (Acute) Severe sepsis (Acute) Acute respiratory failure with hypoxemia (Acute) Hypokalemia (Acute) Hematochezia (Acute) Abnormal LFTs (Acute) - Physical Exam Vital Signs Temp Pulse Resp BP Pulse Ox 98.6 F 83 17 149/67 H 96 04/29/18 15:00 04/29/18 15:20 04/29/18 15:20 04/29/18 15:00 04/29/18 15:00 Oxygen Flow Rate (L/min) [ 6 AMBULATION with Oxygen] Oxygen Flow Rate (L/min) [At 6 REST on Room Air] Oxygen Flow Rate (L/min) 6 Oxygen Delivery Method Nasal Cannula Weight: 160 lb 14.999 oz Body Mass Index (BMI) 30.3 Intake and Output for Last 24 Hours 04/27/18 04/28/18 04/29/18 23:59 23:59 23:59 Intake Total 2380 / 2380 1590 / 1590 720 / 720 Output Total 3675 / 3675 200 / 200 1000 / 1000 Balance -1295 / -1295 1390 / 1390 -280 / -280 Microbiology Past 72 Hours 04/22/18 09:55 Blood Culture - Final Blood Culture (Wb) - Arm Right No growth in 5 days. 04/22/18 09:48 Blood Culture - Final Blood Culture (Wb) - Anticubital Left No growth in 5 days. 04/25/18 04:05 Gram Stain - Final Sputum, Expectorated/Coughed Respiratory Culture - Final Presumptive C albicans POC Glucose 04/29/18 04/29/18 04/29/18 16:26 11:36 06:49 POC Glucose 346 H 210 H 87 04/28/18 21:57 POC Glucose 297 H Home Medications: Medications to take at Discharge Metformin HCl [Glucophage Xr] 1,500 mg PO DAILY 04/21/18 Rosuvastatin Calcium [Crestor] 40 mg PO QHS 04/21/18 traMADol [Ultram] 50 mg PO BID PRN PRN 04/21/18 Ergocalciferol (Vitamin D2) [Vitamin D2] 50,000 unit PO QMONTH 04/22/18 Metoprolol(XL)Succ [Toprol Xl (Beta Jennifer)] 100 mg PO DAILY 04/22/18 Albuterol Aerosols [Ventolin Aerosols] 2.5 mg INHALATION Q2H PRN PRN vial.neb. 04/29/18 Amox/Clavulanate Tablet [Augmentin Tablet] 875 mg PO Q12H #7 tablet 04/29/18 Guaifenesin [Mucinex] 1,200 mg PO BID PRN tablet 04/29/18 Insulin Lispro [Humalog KwikPen] 18 unit SC BREAKFAST insuln.pen 04/29/18 Insulin Lispro [Humalog KwikPen] 24 unit SC LUNCH insuln.pen 04/29/18 Insulin Lispro [Humalog KwikPen] 24 unit SC SUPPER insuln.pen 04/29/18 Insulin U-500 [Humulin R U-500 (BKC)] 65 units SC DAILY #1 pen 04/29/18 Ipratropium/Albuterol Sulfate [Duoneb] 3 ml INHALATION Q4HWA.RT ampul.neb 04/29/18 Metoprolol(XL)Succ [Toprol Xl (Beta Jennifer)] 100 mg PO DAILY tablet 04/29/18 Potassium Chloride [K-Dur] 20 meq PO BIDCM tablet 04/29/18 Prednisone 10 mg PO DAILY #10 tablet 04/29/18 Following Prescrptions Were Given to Patient: Amox/Clavulanate Tablet [Augmentin Tablet] 875 mg PO Q12H #7 tablet Prednisone 10 mg PO DAILY #10 tablet Primary Care Physician: Tim Darden Chi, MD [Primary Care Provider] - Please follow up with your Primary Care Physician in: Following discharge from [facility] Disposition: Senior Living facility Minutes spent on discharge:: 40 Patient Condition:: Stable Medical Necessity - Tobacco Use Smoking Status: Never smoker - not currently Tobacco Use: Non-smoker Meaningful Use Info Meaningful Use Diagnoses (Choose all that apply): None applicable Code Visit Inpatient E&M: 64544 Disch Hosp
--- NOTE | 2018-04-29 19:01 | DS.PCM_ITS ---
Discharge Date and Diagnosis - Problem List Patient Problems: Active and Suspected Problems Influenzal pneumonia (Acute) Severe sepsis (Acute) Acute respiratory failure with hypoxemia (Acute) Hypokalemia (Acute) Hematochezia (Acute) Abnormal LFTs (Acute) Date of Admission: 04/22/18 Date of Discharge: 04/29/18 - Primary Discharge Diagnosis Active and Suspected Problems Influenza pneumonia (Acute) Severe sepsis (Acute) Acute respiratory failure with hypoxemia (Acute) Hypokalemia (Acute) Hematochezia (Acute) Abnormal LFTs (Acute) maculopapular rash of unknown etiology ARDS suspected - Secondary Discharge Diagnosis Chronic Problems Hyperlipidemia (Chronic) Hypertension (Chronic) Diabetes mellitus type 2 in nonobese (Chronic) Former smoker (Chronic) Grade I diastolic dysfunction (Chronic) Aortic stenosis (Chronic) mild-moderate Hospital Course and Treatment Imaging Results: Clinical Impression(s) from Imaging Studies Chest X-Ray 04/22/18 09:59 IMPRESSION: Progressive bilateral pulmonary infiltrates worse in the right hemithorax. Electronically Signed: Luca Gupta, at 10:31 EST , Service support , Chest CT 04/25/18 15:16 IMPRESSION: Mediastinal lymphadenopathy. Extensive bilateral pulmonary groundglass infiltrates as described above, presenting a pattern of crazy paving. Differential considerations of this pattern include acute respiratory distress syndrome, bacterial pneumonia, pulmonary alveolar proteinosis, drug induced pneumonitis, pulmonary edema, pneumonia of atypical organisms, among multiple other possible etiologies. Somewhat favoring infectious etiology given the presence of mediastinal lymphadenopathy. There is no apparent subpleural nodularity in the lungs but consider also the possibility of sarcoidosis with a combination of pulmonary parenchymal abnormalities and mediastinal lymphadenopathy. Pulmonology consultation is recommended. The patient may benefit from follow-up high-resolution chest CT optimized for assessment of the interstitium. Electronically Signed: Mars Samuels MD at 16:28 EDT Tel , Service support , Chest X-Ray 04/28/18 14:22 IMPRESSION: 1. Improving bilateral infiltrates. A new rounded density is now seen in the medial left apex, however. 2. Borderline fullness of the new, likely reflecting the adenopathy noted on previous exam. The pulmonary vascular pattern remains difficult to accurately evaluate. Electronically Signed: Carlos Crockett MD at 17:38 EDT , Service support , Laboratory Results - last 24 hr 04/28/18 04/29/18 04/29/18 21:57 06:49 11:36 POC Glucose 297 H 87 210 H 04/29/18 16:26 POC Glucose 346 H Microbiology 04/22/18 09:55 Blood Culture (Wb) - Arm Right Blood Culture - Final No growth in 5 days. 04/22/18 09:48 Blood Culture (Wb) - Anticubital Left Blood Culture - Final No growth in 5 days. 04/25/18 04:05 Sputum, Expectorated/Coughed Gram Stain - Final 04/25/18 04:05 Sputum, Expectorated/Coughed Respiratory Culture - Final Presumptive C albicans 04/22/18 18:15 Urine, Clean Catch Urine Culture - Final Culture exhibits no growth. 04/23/18 18:15 Stool Stool Occult Blood (XUAN) - Final Occult Blood Positive 04/22/18 15:58 Mucosa - Nose Respiratory Panel (PCR) - Final Influenza A (Subtype H3) 04/22/18 18:15 Urine, Clean Catch Streptococcus pneumoniae Antigen (M - Final 04/22/18 18:15 Urine, Clean Catch Legionella Antigen - Final Dr. Joselito Bravo-pulmonary medicine Dr. Schuyler Stockton-general surgery Operations: None Procedures: 2-D Echocardiogram - Interpretation Summary The estimated ejection fraction is 75 %. Stage 1 diastolic dysfunction. Unable to estimate RV systolic pressure due to inadequate jet, pulmonary artery pressure probably normal. Mild to moderate aortic stenosis. Compared to echo report dated 11/02/2008, LV function has remained the same, but pt now appears to have mild to moderate aortic stenosis. Summary of Care Provided: The patient is a 72-year-old female with a past medical history of hyperlipidemia, hypertension and diabetes mellitus type 2 who presented to the emergency room on 04/22/2018 complaining of cough and shortness of breath. She had been diagnosed with influenza and started on Tamiflu 3 days prior to presentation to the emergency room. Temp in the ER was 100.3 and the heart rate was 103. The respiratory rate was 18 and she was 94% saturated on room air. Blood pressure was 112/67. White blood cell count was elevated at 13.8 with a left shift. Hemoglobin and platelets were within normal limits. Sodium was low at 131 and potassium was low at 3.3. BUN was 12 and the creatinine was 0.8. Lactic acid was 1.4 and the AST was mildly elevated at 60 with an ALT of 36. Troponin was within normal limits at 0.043. A UA showed 10-25 WBCs per high- power field with 5-10 squamous epithelial cells and no bacteria. Chest x-ray showed multiple bilateral infiltrates. She was admitted to the hospital with a diagnosis of sepsis secondary to community-acquired pneumonia with recent history of influenza A. She was started on ceftriaxone and azithromycin. Tamiflu was continued. She was started on aerosolized bronchodilators and steroids. Respiratory panel was positive for influenza A subtype 3. Blood cultures had no growth in 5 days. A urine culture had no growth. Legionella and streptococcal antigens in the urine were negative. Sputum Gram stain grew presumptive Dorita albicans. She complained of black tarry stools and Dr. Stockton from general surgery was consulted. He planned a EGD and a colonoscopy however, the hemoglobin and hematocrit remained within normal limits despite a heme positive stool. Her tenuous respiratory status precluded endoscopy and it will be deferred until some time in the future when she has recovered. She had persistent wheezing and continued to require 5-6 LPM of nasal O2 despite appropriate treatment. a CT scan of the chest was obtained and showed crazy paving which I presumed to rep resent ARDS. Dr. Bravo from pulmonary was consulted and he recommended a surface ECHO and a ABG. An ABG on 6 L showed a pH of 7.49, PCO2 of 40 and a PO2 of 61. She was placed on BiPAP with 10/5 settings and the pH was 7.45 with a PCO2 of 44 and a PO2 of 140. Overnight she refused to wear the BIPAP but, the following morning she is finally improved with nmo wheezing. The ECHO showed mild and a normal EF. On 04/29/2018 she was stable and afebrile. She was maintaining appropriate oxygen saturations on 5-6 L/min via nasal cannula. She was less tachypneic and her lungs had no wheezing on that date. She was discharged to a SNF prior to eventually returning home. I recommended she follow up with pulmonary where she normally lives in the future for PFT's. I also suggested she follow up with a field service technician poultry to monitor the periodically for progression. - Physical Exam General: Alert, not tachypneic at rest today HEENT: Atraumatic, PERRLA, EOMI, Normocephalic Oral: Moist Mucosa, no mucosal lesions Neck: Supple, No JVD, Trachea Midline Lungs: Diminished, clear to auscultation, symmetric chest expansion, no conversational dyspnea today, not tachypneic, no accessory muscle use Cardiovascular: Regular rate, Regular Rhythm, Normal S1, Normal S2, No rub noted, No Gallop, - - Telemetry-normal sinus rhythm and sinus tachycardia with no ectopy Abdomen: Bowel Sounds Present, Soft, Non Tender, Non-Distended Extremities: No cyanosis, No edema Skin: No rashes Neurological: Cranial nerves II-XII grossly intact, Neuro grossly intact This note was generated with [employer] dictation software. It may contain incorrect words, spelling, and punctuation that were not noted in checking the note before signing. Patient Problems: Active and Suspected Problems Influenzal pneumonia (Acute) Severe sepsis (Acute) Acute respiratory failure with hypoxemia (Acute) Hypokalemia (Acute) Hematochezia (Acute) Abnormal LFTs (Acute) - Physical Exam Vital Signs Temp Pulse Resp BP Pulse Ox 98.6 F 83 17 149/67 H 96 04/29/18 15:00 04/29/18 15:20 04/29/18 15:20 04/29/18 15:00 04/29/18 15:00 Oxygen Flow Rate (L/min) [ 6 AMBULATION with Oxygen] Oxygen Flow Rate (L/min) [At 6 REST on Room Air] Oxygen Flow Rate (L/min) 6 Oxygen Delivery Method Nasal Cannula Weight: 160 lb 14.999 oz Body Mass Index (BMI) 30.3 Intake and Output for Last 24 Hours 04/27/18 04/28/18 04/29/18 23:59 23:59 23:59 Intake Total 2380 / 2380 1590 / 1590 720 / 720 Output Total 3675 / 3675 200 / 200 1000 / 1000 Balance -1295 / -1295 1390 / 1390 -280 / -280 Microbiology Past 72 Hours 04/22/18 09:55 Blood Culture - Final Blood Culture (Wb) - Arm Right No growth in 5 days. 04/22/18 09:48 Blood Culture - Final Blood Culture (Wb) - Anticubital Left No growth in 5 days. 04/25/18 04:05 Gram Stain - Final Sputum, Expectorated/Coughed Respiratory Culture - Final Presumptive C albicans POC Glucose 04/29/18 04/29/18 04/29/18 16:26 11:36 06:49 POC Glucose 346 H 210 H 87 04/28/18 21:57 POC Glucose 297 H Home Medications: Medications to take at Discharge Metformin HCl [Glucophage Xr] 1,500 mg PO DAILY 04/21/18 Rosuvastatin Calcium [Crestor] 40 mg PO QHS 04/21/18 traMADol [Ultram] 50 mg PO BID PRN PRN 04/21/18 Ergocalciferol (Vitamin D2) [Vitamin D2] 50,000 unit PO QMONTH 04/22/18 Metoprolol(XL)Succ [Toprol Xl (Beta Jennifer)] 100 mg PO DAILY 04/22/18 Albuterol Aerosols [Ventolin Aerosols] 2.5 mg INHALATION Q2H PRN PRN vial.neb. 04/29/18 Amox/Clavulanate Tablet [Augmentin Tablet] 875 mg PO Q12H #7 tablet 04/29/18 Guaifenesin [Mucinex] 1,200 mg PO BID PRN tablet 04/29/18 Insulin Lispro [Humalog KwikPen] 18 unit SC BREAKFAST insuln.pen 04/29/18 Insulin Lispro [Humalog KwikPen] 24 unit SC LUNCH insuln.pen 04/29/18 Insulin Lispro [Humalog KwikPen] 24 unit SC SUPPER insuln.pen 04/29/18 Insulin U-500 [Humulin R U-500 (BKC)] 65 units SC DAILY #1 pen 04/29/18 Ipratropium/Albuterol Sulfate [Duoneb] 3 ml INHALATION Q4HWA.RT ampul.neb 04/29/18 Metoprolol(XL)Succ [Toprol Xl (Beta Jennifer)] 100 mg PO DAILY tablet 04/29/18 Potassium Chloride [K-Dur] 20 meq PO BIDCM tablet 04/29/18 Prednisone 10 mg PO DAILY #10 tablet 04/29/18 Following Prescrptions Were Given to Patient: Amox/Clavulanate Tablet [Augmentin Tablet] 875 mg PO Q12H #7 tablet Prednisone 10 mg PO DAILY #10 tablet Primary Care Physician: Tim Darden Chi, MD [Primary Care Provider] - Please follow up with your Primary Care Physician in: Following discharge from alf Disposition: Senior Living facility Minutes spent on discharge:: 40 Patient Condition:: Stable Medical Necessity - Tobacco Use Smoking Status: Never smoker - not currently Tobacco Use: Non-smoker Meaningful Use Info Meaningful Use Diagnoses (Choose all that apply): None applicable Code Visit Inpatient E&M: 25792 Disch Hosp
[2018-04-29 21:21] LABS: Bedside Glucose 305 mg/dL (70-110)
[2018-04-29] MEDS: Atorvastatin Calcium 80 MG Tablet PO (21:37)
[2018-04-29] MEDS: traMADol 50 MG Tablet PO (21:37)
[2018-04-29] MEDS: Hydrocortisone 2.5% Crm 1 APPLIC TOPICAL (22:29)
[2018-04-30] VITALS (14 sets, daily range): BP systolic 128–141; BP diastolic 62–68; PULSE 76–103; RESP 18–20; TEMP 36.8–36.9; O2SAT 94–97
[2018-04-30] MEDS: Acetaminophen 325 MG Tablet 650 MG PO (03:15)
--- NOTE | 2018-04-30 03:34 | CPS ---
pt refuses bipap
[2018-04-30 06:56] LABS: Bedside Glucose 147 mg/dL (70-110)
[2018-04-30] MEDS: Ipratropium/Albuterol Sulfate 3 ML AMPUL.NEB INHALATION ×4 (07:09→19:06)
--- NOTE | 2018-04-30 08:01 | PCM.PROGNOTE ---
Patient Problems: Active and Suspected Problems Influenzal pneumonia (Acute) Severe sepsis (Acute) Acute respiratory failure with hypoxemia (Acute) Hypokalemia (Acute) Hematochezia (Acute) Abnormal LFTs (Acute) Subjective: The patient was seen and examined at the bedside this morning. Events from the last 24 hours have been reviewed. The patient is currently afebrile, hemodynamically stable and maintaining appropriate oxygen saturations on 6 L/min via nasal cannula. The patient refused to utilize BiPAP overnight. Attempts to discharge the patient yesterday to a [facility] facility was unsuccessful, as the patient's SNF was not able to take new patients over the weekend. The patient is currently sitting in her bedside recliner. She does report some interval improvement in her shortness of breath. Her oxygen flow rate was subsequently decreased to 4 L/min. Objective: The patient's most recent lab work, culture data and imaging studies have all been personally reviewed. Respiratory viral panel was positive for influenza A. Sputum culture dated April 25 was positive for presumptive Dorita albicans. Surface echocardiogram revealed evidence of stage I diastolic dysfunction. There was also evidence of mild to moderate aortic stenosis. - Physical Exam General: Alert, Oriented x3, Cooperative, No apparent distress HEENT: Atraumatic, PERRLA, Normocephalic Oral: Moist Mucosa, No Gingival or Mucosal Lesions/ Ulcerations Neck: Supple, No Nodes, Trachea Midline Lungs: No rhonchi, No wheeze, No rales, Diminished Cardiovascular: Regular rate, Regular Rhythm, Normal S1, Normal S2, No murmurs Abdomen: Bowel Sounds Present, Soft, Non Tender, Obese Extremities: No clubbing, No cyanosis, No edema Skin: - - No significant change from previous Musculoskeletal: No Tenderness to Palpation of Joints or Extremities, No Muscle Wasting Lymphatic: No Cervical, Supraclavicular, or Inguinal Adenopathy Neurological: Cranial nerves II-XII grossly intact, Neuro grossly intact Psych/Mental Status: Alert and oriented to time, place, person, mood and affect Vital Signs Temp Pulse Resp BP Pulse Ox 36.9 C 76 20 H 129/62 H 97 04/30/18 05:15 04/30/18 07:21 04/30/18 05:15 04/30/18 05:15 04/30/18 05:15 Oxygen Flow Rate (L/min) [ 6 AMBULATION with Oxygen] Oxygen Flow Rate (L/min) [At 6 REST on Room Air] Oxygen Flow Rate (L/min) 6 Oxygen Delivery Method Nasal Cannula Weight: 161 lb 9.581 oz Body Mass Index (BMI) 30.3 Intake and Output for Last 24 Hours 04/28/18 04/29/18 04/30/18 23:59 23:59 23:59 Intake Total 1590 / 1590 720 / 720 220 / 220 Output Total 200 / 200 1500 / 1500 300 / 300 Balance 1390 / 1390 -780 / -780 -80 / -80 Microbiology Past 72 Hours 04/22/18 09:55 Blood Culture - Final Blood Culture (Wb) - Arm Right No growth in 5 days. 04/22/18 09:48 Blood Culture - Final Blood Culture (Wb) - Anticubital Left No growth in 5 days. 04/25/18 04:05 Gram Stain - Final Sputum, Expectorated/Coughed Respiratory Culture - Final Presumptive C albicans POC Glucose 04/30/18 04/29/18 04/29/18 06:50 21:17 16:26 POC Glucose 147 H 305 H 346 H 04/29/18 11:36 POC Glucose 210 H Clinical Impression(s) from Imaging Studies Chest X-Ray 04/22/18 09:59 IMPRESSION: Progressive bilateral pulmonary infiltrates worse in the right hemithorax. Electronically Signed: Luca Gupta, at 10:31 EST , Service support , Chest CT 04/25/18 15:16 IMPRESSION: Mediastinal lymphadenopathy. Extensive bilateral pulmonary groundglass infiltrates as described above, presenting a pattern of crazy paving. Differential considerations of this pattern include acute respiratory distress syndrome, bacterial pneumonia, pulmonary alveolar proteinosis, drug induced pneumonitis, pulmonary edema, pneumonia of atypical organisms, among multiple other possible etiologies. Somewhat favoring infectious etiology given the presence of mediastinal lymphadenopathy. There is no apparent subpleural nodularity in the lungs but consider also the possibility of sarcoidosis with a combination of pulmonary parenchymal abnormalities and mediastinal lymphadenopathy. Pulmonology consultation is recommended. The patient may benefit from follow-up high-resolution chest CT optimized for assessment of the interstitium. Electronically Signed: Mars Samuels MD at 16:28 EDT Tel , Service support , Chest X-Ray 04/28/18 14:22 IMPRESSION: 1. Improving bilateral infiltrates. A new rounded density is now seen in the medial left apex, however. 2. Borderline fullness of the new, likely reflecting the adenopathy noted on previous exam. The pulmonary vascular pattern remains difficult to accurately evaluate. Electronically Signed: Carlos Crockett MD at 17:38 EDT , Service support , Medical Necessity - Tobacco Use Smoking Status: Never smoker - not currently Tobacco Use: Non-smoker Assessment/Plan All Active Problems Influenzal pneumonia (Acute) Melena (Ruled-out) Severe sepsis (Acute) Acute respiratory failure with hypoxemia (Acute) Hypokalemia (Acute) Hematochezia (Acute) Abnormal LFTs (Acute) RECOMMENDATIONS: 1. Continue to wean supplemental oxygen to maintain saturations at or above 90%. 2. Encourage incentive spirometer utilization. 3. Perform walking oximetry prior to consideration for discharge from the hospital. 4. Continue prednisone as ordered. Plan to wean by 10 mg every 3 days at discharge. 5. The patient should ideally follow up in the pulmonary medicine clinic within 2 weeks of her discharge from the hospital. IMPRESSIONS: 1. Acute hypoxemic respiratory failure The patient has been maintained on antimicrobials and treatment for presumptive community-acquired pneumonia. In addition, the patient was noted to be positive for influenza A and subsequently received Tamiflu. Her recent chest CT revealed diffuse bilateral groundglass changes. These findings noted on chest CT are very nonspecific in nature and could represent infection, edema or an inflammatory process. The patient does have an extensive smoking history and may certainly have underlying obstructive lung disease. With time, the patient is slowly improving. I do suspect that the patient's chest imaging findings were likely related to infection. Anticipate prolonged recovery period. Continue to wean supplemental oxygen to maintain saturations at or above 90%. The patient should have a walking oximetry study done prior to discharge from the hospital. I would continue her scheduled bronchodilators and prednisone as ordered. At discharge, I would wean her prednisone by 10 mg every 3 days. The patient should follow-up in the pulmonary medicine clinic within 2 weeks of her discharge from the hospital. 2. Extensive tobacco dependency, now in remission Recommend outpatient pulmonary function studies to evaluate for any underlying obstructive lung disease. For now, recommend continuing scheduled bronchodilators as ordered. 3. Melena Outpatient surgery follow-up currently planned. 4. Diabetes/hypertension Complicates care, management, recovery and prognosis. Continue home medications. This note was generated with [employer] dictation software. It may contain incorrect words, spelling, and punctuation that were not noted in checking the note before signing. Code Visit Inpatient E&M: 21179 Subs Hosp L2
--- NOTE | 2018-04-30 08:04 | PN_ITS ---
Patient Problems: Active and Suspected Problems Influenzal pneumonia (Acute) Severe sepsis (Acute) Acute respiratory failure with hypoxemia (Acute) Hypokalemia (Acute) Hematochezia (Acute) Abnormal LFTs (Acute) Subjective: The patient was seen and examined at the bedside this morning. Events from the last 24 hours have been reviewed. The patient is currently afebrile, hemodynamically stable and maintaining appropriate oxygen saturations on 6 L/min via nasal cannula. The patient refused to utilize BiPAP overnight. Attempts to discharge the patient yesterday to a long term facility was unsuccessful, as the patient's SNF was not able to take new patients over the weekend. The patient is currently sitting in her bedside recliner. She does report some interval improvement in her shortness of breath. Her oxygen flow rate was subsequently decreased to 4 L/min. Objective: The patient's most recent lab work, culture data and imaging studies have all been personally reviewed. Respiratory viral panel was positive for influenza A. Sputum culture dated April 25 was positive for presumptive Dorita albicans. Surface echocardiogram revealed evidence of stage I diastolic dysfunction. There was also evidence of mild to moderate aortic stenosis. - Physical Exam General: Alert, Oriented x3, Cooperative, No apparent distress HEENT: Atraumatic, PERRLA, Normocephalic Oral: Moist Mucosa, No Gingival or Mucosal Lesions/ Ulcerations Neck: Supple, No Nodes, Trachea Midline Lungs: No rhonchi, No wheeze, No rales, Diminished Cardiovascular: Regular rate, Regular Rhythm, Normal S1, Normal S2, No murmurs Abdomen: Bowel Sounds Present, Soft, Non Tender, Obese Extremities: No clubbing, No cyanosis, No edema Skin: - - No significant change from previous Musculoskeletal: No Tenderness to Palpation of Joints or Extremities, No Muscle Wasting Lymphatic: No Cervical, Supraclavicular, or Inguinal Adenopathy Neurological: Cranial nerves II-XII grossly intact, Neuro grossly intact Psych/Mental Status: Alert and oriented to time, place, person, mood and affect Vital Signs Temp Pulse Resp BP Pulse Ox 36.9 C 76 20 H 129/62 H 97 04/30/18 05:15 04/30/18 07:21 04/30/18 05:15 04/30/18 05:15 04/30/18 05:15 Oxygen Flow Rate (L/min) [ 6 AMBULATION with Oxygen] Oxygen Flow Rate (L/min) [At 6 REST on Room Air] Oxygen Flow Rate (L/min) 6 Oxygen Delivery Method Nasal Cannula Weight: 161 lb 9.581 oz Body Mass Index (BMI) 30.3 Intake and Output for Last 24 Hours 04/28/18 04/29/18 04/30/18 23:59 23:59 23:59 Intake Total 1590 / 1590 720 / 720 220 / 220 Output Total 200 / 200 1500 / 1500 300 / 300 Balance 1390 / 1390 -780 / -780 -80 / -80 Microbiology Past 72 Hours 04/22/18 09:55 Blood Culture - Final Blood Culture (Wb) - Arm Right No growth in 5 days. 04/22/18 09:48 Blood Culture - Final Blood Culture (Wb) - Anticubital Left No growth in 5 days. 04/25/18 04:05 Gram Stain - Final Sputum, Expectorated/Coughed Respiratory Culture - Final Presumptive C albicans POC Glucose 04/30/18 04/29/18 04/29/18 06:50 21:17 16:26 POC Glucose 147 H 305 H 346 H 04/29/18 11:36 POC Glucose 210 H Clinical Impression(s) from Imaging Studies Chest X-Ray 04/22/18 09:59 IMPRESSION: Progressive bilateral pulmonary infiltrates worse in the right hemithorax. Electronically Signed: Luca Gupta, at 10:31 EST , Service support , Chest CT 04/25/18 15:16 IMPRESSION: Mediastinal lymphadenopathy. Extensive bilateral pulmonary groundglass infiltrates as described above, presenting a pattern of crazy paving. Differential considerations of this pattern include acute respiratory distress syndrome, bacterial pneumonia, pulmonary alveolar proteinosis, drug induced pneumonitis, pulmonary edema, pneumonia of atypical organisms, among multiple other possible etiologies. Somewhat favoring infectious etiology given the presence of mediastinal lymphadenopathy. There is no apparent subpleural nodularity in the lungs but consider also the possibility of sarcoidosis with a combination of pulmonary parenchymal abnormalities and mediastinal lymphadenopathy. Pulmonology consultation is recommended. The patient may benefit from follow-up high-resolution chest CT optimized for assessment of the interstitium. Electronically Signed: Mars Samuels MD at 16:28 EDT Tel , Service support , Chest X-Ray 04/28/18 14:22 IMPRESSION: 1. Improving bilateral infiltrates. A new rounded density is now seen in the medial left apex, however. 2. Borderline fullness of the new, likely reflecting the adenopathy noted on previous exam. The pulmonary vascular pattern remains difficult to accurately evaluate. Electronically Signed: Carlos Crockett MD at 17:38 EDT , Service support , Medical Necessity - Tobacco Use Smoking Status: Never smoker - not currently Tobacco Use: Non-smoker Assessment/Plan All Active Problems Influenzal pneumonia (Acute) Melena (Ruled-out) Severe sepsis (Acute) Acute respiratory failure with hypoxemia (Acute) Hypokalemia (Acute) Hematochezia (Acute) Abnormal LFTs (Acute) RECOMMENDATIONS: 1. Continue to wean supplemental oxygen to maintain saturations at or above 90%. 2. Encourage incentive spirometer utilization. 3. Perform walking oximetry prior to consideration for discharge from the hospital. 4. Continue prednisone as ordered. Plan to wean by 10 mg every 3 days at discharge. 5. The patient should ideally follow up in the pulmonary medicine clinic within 2 weeks of her discharge from the hospital. IMPRESSIONS: 1. Acute hypoxemic respiratory failure The patient has been maintained on antimicrobials and treatment for presumptive community-acquired pneumonia. In addition, the patient was noted to be positive for influenza A and subsequently received Tamiflu. Her recent chest CT revealed diffuse bilateral groundglass changes. These findings noted on chest CT are very nonspecific in nature and could represent infection, edema or an inflammatory process. The patient does have an extensive smoking history and may certainly have underlying obstructive lung disease. With time, the patient is slowly improving. I do suspect that the patient's chest imaging findings were likely related to infection. Anticipate prolonged recovery period. Continue to wean supplemental oxygen to maintain saturations at or above 90%. The patient should have a walking oximetry study done prior to discharge from the hospital. I would continue her scheduled bronchodilators and prednisone as ordered. At discharge, I would wean her prednisone by 10 mg every 3 days. The patient should follow-up in the pulmonary medicine clinic within 2 weeks of her discharge from the hospital. 2. Extensive tobacco dependency, now in remission Recommend outpatient pulmonary function studies to evaluate for any underlying obstructive lung disease. For now, recommend continuing scheduled bronchodilators as ordered. 3. Melena Outpatient surgery follow-up currently planned. 4. Diabetes/hypertension Complicates care, management, recovery and prognosis. Continue home medications. This note was generated with [employer] dictation software. It may contain incorrect words, spelling, and punctuation that were not noted in checking the note before signing. Code Visit Inpatient E&M: 16589 Subs Hosp L2
[2018-04-30] MEDS: predniSONE 20 MG Tablet 40 MG PO (09:14)
[2018-04-30] MEDS: Metoprolol(XL)Succ 100 MG Tablet PO (09:14)
[2018-04-30] MEDS: Insulin Lispro 100 UNIT/ML INSULN.PEN 18 UNIT SC (09:15)
[2018-04-30] MEDS: Glucerna Shake 120 ML LIQUID PO ×3 (09:20→21:12)
[2018-04-30] MEDS: Loratadine 10 MG Tablet PO (11:07)
[2018-04-30 11:56] LABS: Bedside Glucose 331 mg/dL (70-110)
[2018-04-30] MEDS: Insulin Lispro 100 UNIT/ML INSULN.PEN 24 UNIT SC ×2 (13:07→16:34)
[2018-04-30 16:46] LABS: Bedside Glucose 326 mg/dL (70-110)
--- NOTE | 2018-04-30 17:46 | PN_ITS ---
Patient Problems: Active and Suspected Problems Influenzal pneumonia (Acute) Severe sepsis (Acute) Acute respiratory failure with hypoxemia (Acute) Hypokalemia (Acute) Hematochezia (Acute) Abnormal LFTs (Acute) Subjective: No change in the rash. It is erythematous maculopapular....face is spared. No complaints. - Physical Exam General: Alert, Oriented x3, Cooperative, No apparent distress HEENT: Atraumatic Oral: Moist Mucosa Neck: Supple, Trachea Midline Lungs: Clear to auscultation, No wheeze, No rales, Diminished Cardiovascular: Regular rate, Regular Rhythm, Normal S1, Normal S2, No Gallop Abdomen: Bowel Sounds Present, Soft, Non Tender, Non-Distended Extremities: No edema Vital Signs Temp Pulse Resp BP Pulse Ox 98.3 F 93 20 H 141/65 H 95 04/30/18 14:55 04/30/18 15:36 04/30/18 15:04 04/30/18 14:55 04/30/18 14:55 Oxygen Flow Rate (L/min) [ 6 AMBULATION with Oxygen] Oxygen Flow Rate (L/min) [At 6 REST on Room Air] Oxygen Flow Rate (L/min) 3 Oxygen Delivery Method Nasal Cannula Weight: 161 lb 9.581 oz Body Mass Index (BMI) 30.3 Intake and Output for Last 24 Hours 04/28/18 04/29/18 04/30/18 23:59 23:59 23:59 Intake Total 1590 / 1590 720 / 720 460 / 460 Output Total 200 / 200 1500 / 1500 500 / 500 Balance 1390 / 1390 -780 / -780 -40 / -40 POC Glucose 04/30/18 04/30/18 04/30/18 16:31 11:10 06:50 POC Glucose 326 H 331 H 147 H 04/29/18 21:17 POC Glucose 305 H Medical Necessity - Tobacco Use Smoking Status: Never smoker - not currently Tobacco Use: Non-smoker Assessment/Plan All Active Problems Influenzal pneumonia (Acute) Melena (Ruled-out) Severe sepsis (Acute) Acute respiratory failure with hypoxemia (Acute) Hypokalemia (Acute) Hematochezia (Acute) Abnormal LFTs (Acute) Impressions 1. Severe sepsis due to community-acquired pneumonia -likely viral due to influenza A 2. Acute respiratory failure with hypoxemia 3. Hypokalemia 4. Hypertension 5. Diabetes mellitus type 2 with marked insulin resistant on U5 100 insulin- hemoglobin A1c is 8.6 6. Former smoker 7. Hyponatremia-likely pseudohyponatremia secondary to hyperglycemia 8. Hematochezia-will follow up with Dr. Stockton as an outpatient for endoscopy 9. pruritic maculopapular rash of unknown etiology Claritin 10 mg daily Benadryl 12.5 mg TID PRN pruritus DC the Rocephin adjust the insulin Ambulatory pulse ox on room air in the a.m. and ambulate on oxygen to determine oxygen requirement Endoscopy as an outpatient Code Visit Inpatient E&M: 77412 Subs Hosp L2
[2018-04-30] MEDS: Atorvastatin Calcium 80 MG Tablet PO (21:12)
[2018-04-30] MEDS: DiphenhydrAMINE 12.5 MG/5 ML UDC PO (21:16)
[2018-04-30 22:11] LABS: Bedside Glucose 335 mg/dL (70-110)
[2018-05-01] VITALS (10 sets, daily range): BP systolic 96–117; BP diastolic 52–79; PULSE 78–98; RESP 18–20; TEMP 36.1–37; O2SAT 86–96
[2018-05-01] MEDS: Hydrocortisone 2.5% Crm 1 APPLIC TOPICAL ×2 (01:34→20:52)
[2018-05-01] MEDS: DiphenhydrAMINE 12.5 MG/5 ML UDC PO ×3 (01:36→20:52)
[2018-05-01] MEDS: 0.9% NaCl Peripheral Flush Adult/Peds IV (06:43)
[2018-05-01] MEDS: Ipratropium/Albuterol Sulfate 3 ML AMPUL.NEB INHALATION ×3 (07:13→20:03)
[2018-05-01 07:26] LABS: Hematocrit 41.9 % (37-47); Hemoglobin 13.1 g/dl (12.0-15.0); Mean Corp Hgb Conc 31.3 g/gl (32-36); Mean Corpuscular Hgb 27.9 pg (27.0-32.0); Mean Corpuscular Volume 89.1 fL (81-99); Mean Platelet Vol. 9.4 fl (6.2-12.0); Platelet Count 525 K/mm3 (150-450); RBC Distribution Width CV 16.4 % (11.6-14.6); RBC Distribution Width SD 53.5 fl (35.1-43.9); White Blood Count 16.9 K/mm3 (4.4-11.0)
[2018-05-01 07:27] LABS: Differential Indicated MANUAL DIFF; POSITIVE COUNT YES; POSITIVE DIFFERENTIAL NO; POSITIVE MORPHOLOGY YES
[2018-05-01 07:58] LABS: Anion Gap 6 (5-15); BUN 17 mg/dL (7-18); BUN/Creat Ratio 26.2 RATIO (10-20); Calcium,Total 9.4 mg/dL (8.5-10.1); Chloride 101 mmol/L (98-107); Creatinine, Serum 0.65 mg/dL (0.55-1.02); EST Glomerular Filtration Rate 95 mL/min (>60); Est Glom Filt Rate - Afr Amer 115 mL/min (>60); Estimated Creatinine Clearance 39.63 ml/min; Glucose 48 mg/dL (74-106); Potassium 3.7 mmol/L (3.5-5.1); Sodium Level 138 mmol/L (136-145)
[2018-05-01 08:12] LABS: Eosinophil 2 % (0-5); Lymphocyte 16 % (19-41); Myelocyte 1 (0-0); Neutrophil-Band 3 % (0-5); Neutrophil-Segmented 78 % (47-70); Platelet Estimate SLT INC (ADEQ); Total Cells Counted 100 (MANUAL DIFF)
[2018-05-01 08:13] LABS: Red Cell Morphology NORM C+C NORMAL (NORM C&C)
[2018-05-01] MEDS: Insulin Lispro 100 UNIT/ML INSULN.PEN 18 UNIT SC (09:19)
[2018-05-01] MEDS: Metoprolol(XL)Succ 100 MG Tablet PO (09:29)
[2018-05-01] MEDS: Loratadine 10 MG Tablet PO (09:30)
[2018-05-01] MEDS: predniSONE 20 MG Tablet 30 MG PO (09:30)
[2018-05-01 11:16] LABS: Bedside Glucose 50 mg/dL (70-110)
[2018-05-01 11:16] LABS: Bedside Glucose 58 mg/dL (70-110)
[2018-05-01 11:16] LABS: Bedside Glucose 88 mg/dL (70-110)
[2018-05-01 11:31] LABS: Bedside Glucose 175 mg/dL (70-110)
[2018-05-01] MEDS: Insulin Lispro 100 UNIT/ML INSULN.PEN 24 UNIT SC ×2 (12:16→17:00)
[2018-05-01] MEDS: Glucerna Shake 120 ML LIQUID PO ×3 (15:17→20:52)
[2018-05-01 16:30] LABS: Bedside Glucose 243 mg/dL (70-110)
--- NOTE | 2018-05-01 17:27 | PN_ITS ---
Patient Problems: Active and Suspected Problems Influenzal pneumonia (Acute) Severe sepsis (Acute) Acute respiratory failure with hypoxemia (Acute) Hypokalemia (Acute) Hematochezia (Acute) Abnormal LFTs (Acute) Subjective: The patient is a 72-year-old female with a past medical history of hyperlipidemia, hypertension and diabetes mellitus type 2 who presented to the emergency room on 04/22/2018 complaining of cough and shortness of breath. She had been diagnosed with influenza A and started on Tamiflu 3 days prior to presentation to the emergency room. Temp in the ER was 100.3 and the heart rate was 103. The respiratory rate was 18 and she was 94% saturated on room air. Blood pressure was 112/67. White blood cell count was elevated at 13.8 with a left shift. Hemoglobin and platelets were within normal limits. Sodium was low at 131 and potassium was low at 3.3. BUN was 12 and the creatinine was 0.8. Lactic acid was 1.4 and the AST was mildly elevated at 60 with an ALT of 36. Troponin was within normal limits at 0.043. A UA showed 10-25 WBCs per high- power field with 5-10 squamous epithelial cells and no bacteria. Chest x-ray showed multiple bilateral infiltrates. She was admitted to the hospital with a diagnosis of sepsis secondary to community-acquired pneumonia with recent history of influenza A. She was started on ceftriaxone and azithromycin. Tamiflu was continued to complete 10 doses. Azithromycin was discontinued after 3 doses and the Rocephin was discontinued on 04/30/18 after 9 days julianne to a erythematous maculopapular rash. She became progressively more short of breath with tachypnea even at rest requiring high flow oxygen at 6 L/min after a few days. CT scan of her chest was consistent with probable ARDS. Dr. Bravo was consulted to participate in management. All events of the past 24 hours of been reviewed. She is afebrile with stable vital signs. Pulse ox on room air today is 86% and pulse ox ambulating on 4 L/min of nasal O2 is 92%. She is 95% on 3 L nasal cannula at rest. White blood cell count is 16.9 with 78% neutrophils and the patient is still on prednisone. Hemoglobin is normal at 13.1 and the platelets are 525,000. BMP is unremarkable. she was hypoglycemic this AM but, we went ahead with 70 units of U 500 and 18 units of humalog and the BS at lunch was 175. The blood sugar prior to supper is 243. She tells me that the rash is less pruritic today and it is no longer spreading. She continues to cough and it is productive but, it is much better than it was. Denies diarrhea and denies painful swallowing or sores in her mouth. Objective: No complaints. - Physical Exam General: Alert, Oriented x3, Cooperative, No apparent distress HEENT: Atraumatic Oral: Moist Mucosa, no mucosal lesions Neck: Supple, Trachea Midline Lungs: Clear to auscultation, No wheeze, No rales, Diminished Cardiovascular: Regular rate, Regular Rhythm, Normal S1, Normal S2, No Gallop Abdomen: Bowel Sounds Present, Soft, Non Tender, Non-Distended Extremities: No edema Neuro: No focal neurologic deficits - Physical Exam Vital Signs Temp Pulse Resp BP Pulse Ox 97 F L 88 20 H 101/79 95 05/01/18 15:08 05/01/18 15:08 05/01/18 15:08 05/01/18 15:08 05/01/18 15:08 Oxygen Flow Rate (L/min) [ 4 AMBULATION with Oxygen] Oxygen Flow Rate (L/min) [At 6 REST on Room Air] Oxygen Flow Rate (L/min) 3 Oxygen Delivery Method Nasal Cannula Weight: 164 lb 3.91 oz Body Mass Index (BMI) 30.3 Intake and Output for Last 24 Hours 04/29/18 04/30/18 05/01/18 23:59 23:59 23:59 Intake Total 720 / 720 960 / 960 1040 / 1040 Output Total 1500 / 1500 1500 / 1500 1600 / 1600 Balance -780 / -780 -540 / -540 -560 / -560 Laboratory Tests Past 24 Hrs 05/01/18 05/01/18 06:45 06:45 WBC 16.9 H RBC 4.70 Hgb 13.1 Hct 41.9 MCV 89.1 MCH 27.9 MCHC 31.3 L RDW 16.4 H RDW Differential 53.5 H Plt Count 525 H MPV 9.4 Neut % (Auto) Not Reportable Absolute Neuts (auto) Not Reportable Total Counted 100 Neutrophils % (Manual) 78 H Band Neutrophils % 3 Lymphocytes % (Manual) 16 L Eosinophils % (Manual) 2 Myelocytes % 1 H Diff Path Review May foll Platelet Estimate SLT INC RBC Morphology NORM C+C Sodium 138 Potassium 3.7 Chloride 101 Carbon Dioxide 31.0 Anion Gap 6 BUN 17 Creatinine 0.65 Estim Creat Clear Calc 39.63 Est GFR (MDRD) Af Amer 115 Est GFR (MDRD) Non-Af 95 BUN/Creatinine Ratio 26.2 H Glucose 48 L Calcium 9.4 Magnesium 2.0 POC Glucose 05/01/18 05/01/18 05/01/18 16:15 11:07 07:20 POC Glucose 243 H 175 H 88 05/01/18 05/01/18 04/30/18 06:58 06:36 21:09 POC Glucose 58 L 50 L 335 H Medical Necessity - Tobacco Use Smoking Status: Never smoker - not currently Tobacco Use: Non-smoker Assessment/Plan All Active Problems Influenzal pneumonia (Acute) Melena (Ruled-out) Severe sepsis (Acute) Acute respiratory failure with hypoxemia (Acute) Hypokalemia (Acute) Hematochezia (Acute) Abnormal LFTs (Acute) Impressions 1. Severe sepsis due to community-acquired pneumonia -likely viral due to influenza A. Completed 3 days of azithromycin, 9 days of Rocephin and 5 days of Tamiflu. 2. Acute respiratory failure with hypoxemia -slowly improving 3. Hypokalemia-resolved 4. Hypertension-controlled 5. Diabetes mellitus type 2 with marked insulin resistant on U5 100 insulin- hemoglobin A1c is 8.6 6. Former smoker 7. Hyponatremia-likely pseudohyponatremia secondary to hyperglycemia-resolved 8. Hematochezia-will follow up with Dr. Stockton as an outpatient for endoscopy 9. pruritic maculopapular rash of unknown etiology Continue Claritin 10 mg p.o. daily Transfer to SNF tomorrow - they were supposed to take her on Wednesday....everything was set up and then they refused and stated they do not take patients over the weekend. Orin is aware and will call in the AM Needs to have endoscopy as an OP due to heme + stool HS U-500 decreased Code Visit Inpatient E&M: 97441 Subs Hosp L1
[2018-05-01] MEDS: Atorvastatin Calcium 80 MG Tablet PO (20:52)
[2018-05-01 21:26] LABS: Bedside Glucose 298 mg/dL (70-110)
[2018-05-02] VITALS (7 sets, daily range): BP systolic 98–117; BP diastolic 61–76; PULSE 88–96; RESP 16–20; TEMP 36.8–36.9; O2SAT 94–96
--- NOTE | 2018-05-02 00:10 | NURSING ---
This RN is taking over care of this patient at this time
[2018-05-02] MEDS: hydrOXYzine PAM 25 MG Capsule PO ×2 (00:31→12:03)
[2018-05-02 01:34] LABS: Absolute Neutrophil Count 13.7 X10^3/uL (2.0-7.7)
[2018-05-02 06:56] LABS: Bedside Glucose 138 mg/dL (70-110)
[2018-05-02] MEDS: Ipratropium/Albuterol Sulfate 3 ML AMPUL.NEB INHALATION ×3 (07:48→14:58)
[2018-05-02] MEDS: Insulin Lispro 100 UNIT/ML INSULN.PEN 18 UNIT SC (08:50)
[2018-05-02] MEDS: Loratadine 10 MG Tablet PO (08:57)
[2018-05-02] MEDS: predniSONE 20 MG Tablet 30 MG PO (08:57)
[2018-05-02] MEDS: Metoprolol(XL)Succ 100 MG Tablet PO (08:57)
[2018-05-02] MEDS: Glucerna Shake 120 ML LIQUID PO (08:58)
--- NOTE | 2018-05-02 09:14 | CASEMGMT ---
Patient is likely ready for d/c to [facility] today. Patient will go by ambulette as she requires O2 and does not have at home. NELLIE called [facility] and arranged for patient to get picked up at 4p via van. NELLIE verified [facility]'s cost for ambulette. NELLIE calculated cost and it will be around $140. NELLIE explained this to patient and she was fine with this and appreciated the heads up. NELLIE called [facility] and spoke with Jennifer. She said they still have a bed for patient. SW told her SW set up transport for 4p as it is often difficult to get. She told SW to call her when SW has orders and d/c instructions. Orin [employer]
[2018-05-02] MEDS: Insulin Lispro 100 UNIT/ML INSULN.PEN 24 UNIT SC (11:47)
[2018-05-02 12:01] LABS: Pathologist Review Reviewed
[2018-05-02 12:05] LABS: Bedside Glucose 217 mg/dL (70-110)
--- NOTE | 2018-05-02 13:42 | PCM.PN.HOSP ---
Patient Problems: Active and Suspected Problems Influenzal pneumonia (Acute) Severe sepsis (Acute) Acute respiratory failure with hypoxemia (Acute) Hypokalemia (Acute) Hematochezia (Acute) Abnormal LFTs (Acute) Subjective: Rash improving but still itches and present. No further vesicles. Vitals/I&O's: Vital Signs Temp Pulse Resp BP Pulse Ox 36.8 C 93 16 110/66 96 05/02/18 08:39 05/02/18 11:09 05/02/18 11:09 05/02/18 08:39 05/02/18 08:39 Oxygen Flow Rate (L/min) [ 4 AMBULATION with Oxygen] Oxygen Flow Rate (L/min) [At 6 REST on Room Air] Oxygen Flow Rate (L/min) 3 Oxygen Delivery Method Nasal Cannula Weight: 75.5 kg Body Mass Index (BMI) 30.3 Intake and Output for Last 24 Hours 04/30/18 05/01/18 05/02/18 23:59 23:59 23:59 Intake Total 960 / 960 1280 / 1280 1160 / 1160 Output Total 1500 / 1500 2600 / 2600 400 / 400 Balance -540 / -540 -1320 / -1320 760 / 760 General: Alert, No apparent distress HEENT: Atraumatic, Normocephalic Oral: Moist Mucosa, No Gingival or Mucosal Lesions/ Ulcerations Neck: No Nodes, Thyroid Normal Size and Texture Lungs: Diminished, - - diffuse fine crackles. Cardiovascular: Regular rate, Regular Rhythm, Normal S1, Normal S2, No murmurs Abdomen: Bowel Sounds Present, Soft, Non Tender Extremities: No edema, No Calf Tenderness Skin: - - diffuse macular rash on LE and abdomen and buttocks. Psych/Mental Status: Normal Affect, Appropriate Laboratory Results 05/01/18 06:45: Absolute Neuts (auto) 13.7 H, Absolute Lymphs (auto) 2.70, Diff Path Review Reviewed 05/01/18 16:15: POC Glucose 243 H 05/01/18 20:49: POC Glucose 298 H 05/02/18 06:52: POC Glucose 138 H 05/02/18 11:43: POC Glucose 217 H Current Medications Acetaminophen (Tylenol) 650 mg PO Q6H PRN PRN PRN Reason: Mild Pain (1-3)/Temp > 100.7 F Last Admin: 04/30/18 03:15 Dose: 650 mg Albuterol Sulfate (Ventolin Aerosols) 2.5 mg INHALATION Q2H PRN PRN PRN Reason: SOB &/OR WHEEZING Last Admin: 04/23/18 16:43 Dose: 2.5 mg Albuterol/Ipratropium (Duoneb) 3 ml INHALATION Q4HWA.RT [facility] Last Admin: 05/02/18 11:09 Dose: 3 ml Atorvastatin Calcium (Lipitor) 80 mg PO QHS [facility] Last Admin: 05/01/18 20:52 Dose: 80 mg Dextrose (D50w Syringe) 0 gm IV X1 PRN; Protocol PRN Reason: Hypoglycemia Glucagon () 1 mg IM .X1 PRN PRN Reason: Hypoglycemia Guaifenesin (Mucinex) 1,200 mg PO BID PRN PRN Reason: COUGH Last Admin: 04/27/18 11:55 Dose: 1,200 mg Hydrocortisone (Hytone) 1 applic TOPICAL BID PRN PRN; Protocol PRN Reason: pruritits Last Admin: 05/01/18 20:52 Dose: 1 applicatio Hydroxyzine Pamoate (Vistaril Pamoate Capsule) 25 mg PO TID PRN PRN PRN Reason: pruritits Last Admin: 05/02/18 12:03 Dose: 25 mg Sodium Chloride () 250 mls @ 15 mls/hr IV .[id number] PRN PRN Reason: SALINE FLUSH Insulin Human Lispro (Humalog Kwikpen (Bkc)) 24 unit SC SUPPER [facility] Last Admin: 05/01/18 17:00 Dose: 24 u Insulin Human Lispro (Humalog Kwikpen (Bkc)) 18 unit SC BREAKFAST [facility] Last Admin: 05/02/18 08:50 Dose: 18 units Insulin Human Lispro (Humalog Kwikpen (Bkc)) 24 unit SC LUNCH [facility] Last Admin: 05/02/18 11:47 Dose: 24 u Insulin Human Regular (Humulin R U-500 (Bkc)) 70 units SC BREAKFAST [facility] Last Admin: 05/02/18 08:51 Dose: 70 u Insulin Human Regular (Humulin R U-500 (Bkc)) 55 units SC QHS [facility] Last Admin: 05/01/18 20:53 Dose: 55 unit Loratadine (Claritin) 10 mg PO DAILY [facility] Last Admin: 05/02/18 08:57 Dose: 10 mg Magnesium Hydroxide (Milk Of Magnesia) 30 ml PO DAILY PRN PRN Reason: Constipation Metoprolol Succinate (Toprol Xl (Beta Jennifer)) 100 mg PO DAILY [facility] Last Admin: 05/02/18 08:57 Dose: 100 mg Nutritional Formula (Lactose Free) (Glucerna Shake) 120 ml PO 4X/DAY [facility] Last Admin: 05/02/18 08:58 Dose: 120 ml Ondansetron HCl (Zofran) 4 mg IV Q8H PRN PRN PRN Reason: NAUSEA Last Admin: 04/24/18 23:34 Dose: 4 mg Pantoprazole Sodium (Protonix) 20 mg PO BID [facility] Last Admin: 05/02/18 08:57 Dose: Not Given Prednisone () 30 mg PO DAILY@0800 [facility] Last Admin: 05/02/18 08:57 Dose: 30 mg Sodium Chloride () 5 - 15 ml IV UD PRN PRN Reason: SALINE FLUSH Last Admin: 05/01/18 06:43 Dose: 10 ml Sucralfate (Carafate) 1 gm PO 1HR_ACHS [facility] Last Admin: 05/02/18 09:58 Dose: Not Given Tramadol HCl (Ultram) 50 mg PO BID PRN PRN PRN Reason: PAIN Last Admin: 04/29/18 21:37 Dose: 50 mg Medical Necessity - Tobacco Use Smoking Status: Never smoker - not currently Tobacco Use: Non-smoker Assessment/Plan All Active Problems Influenzal pneumonia (Acute) Melena (Ruled-out) Severe sepsis (Acute) Acute respiratory failure with hypoxemia (Acute) Hypokalemia (Acute) Hematochezia (Acute) Abnormal LFTs (Acute) 1. Severe sepsis 2. Suspected pneumococcal pneumonia 3. Influenza A 4. Acute hypoxic respiratory failure 5. Acute drug rash likely secondary to cephalosporin 6. Acute lung injury Plan is for the patient to be discharged to facility today. Patient is completed her antibiotics at that would be discontinued moving forward. Patient to have her oxygen weaned as tolerated. Patient advised the risk of future drug reactions and advised to inform staff if she starts developing worsening rash or any concern for angioedema. Greater than 40 minutes spent on discharge today. Code Visit Inpatient E&M: 17954 Disch Hosp
--- NOTE | 2018-05-02 13:45 | PN_ITS ---
Patient Problems: Active and Suspected Problems Influenzal pneumonia (Acute) Severe sepsis (Acute) Acute respiratory failure with hypoxemia (Acute) Hypokalemia (Acute) Hematochezia (Acute) Abnormal LFTs (Acute) Subjective: Rash improving but still itches and present. No further vesicles. Vitals/I&O's: Vital Signs Temp Pulse Resp BP Pulse Ox 36.8 C 93 16 110/66 96 05/02/18 08:39 05/02/18 11:09 05/02/18 11:09 05/02/18 08:39 05/02/18 08:39 Oxygen Flow Rate (L/min) [ 4 AMBULATION with Oxygen] Oxygen Flow Rate (L/min) [At 6 REST on Room Air] Oxygen Flow Rate (L/min) 3 Oxygen Delivery Method Nasal Cannula Weight: 75.5 kg Body Mass Index (BMI) 30.3 Intake and Output for Last 24 Hours 04/30/18 05/01/18 05/02/18 23:59 23:59 23:59 Intake Total 960 / 960 1280 / 1280 1160 / 1160 Output Total 1500 / 1500 2600 / 2600 400 / 400 Balance -540 / -540 -1320 / -1320 760 / 760 General: Alert, No apparent distress HEENT: Atraumatic, Normocephalic Oral: Moist Mucosa, No Gingival or Mucosal Lesions/ Ulcerations Neck: No Nodes, Thyroid Normal Size and Texture Lungs: Diminished, - - diffuse fine crackles. Cardiovascular: Regular rate, Regular Rhythm, Normal S1, Normal S2, No murmurs Abdomen: Bowel Sounds Present, Soft, Non Tender Extremities: No edema, No Calf Tenderness Skin: - - diffuse macular rash on LE and abdomen and buttocks. Psych/Mental Status: Normal Affect, Appropriate Laboratory Results 05/01/18 06:45: Absolute Neuts (auto) 13.7 H, Absolute Lymphs (auto) 2.70, Diff Path Review Reviewed 05/01/18 16:15: POC Glucose 243 H 05/01/18 20:49: POC Glucose 298 H 05/02/18 06:52: POC Glucose 138 H 05/02/18 11:43: POC Glucose 217 H Current Medications Acetaminophen (Tylenol) 650 mg PO Q6H PRN PRN PRN Reason: Mild Pain (1-3)/Temp > 100.7 F Last Admin: 04/30/18 03:15 Dose: 650 mg Albuterol Sulfate (Ventolin Aerosols) 2.5 mg INHALATION Q2H PRN PRN PRN Reason: SOB &/OR WHEEZING Last Admin: 04/23/18 16:43 Dose: 2.5 mg Albuterol/Ipratropium (Duoneb) 3 ml INHALATION Q4HWA.RT [facility] Last Admin: 05/02/18 11:09 Dose: 3 ml Atorvastatin Calcium (Lipitor) 80 mg PO QHS [facility] Last Admin: 05/01/18 20:52 Dose: 80 mg Dextrose (D50w Syringe) 0 gm IV X1 PRN; Protocol PRN Reason: Hypoglycemia Glucagon () 1 mg IM .X1 PRN PRN Reason: Hypoglycemia Guaifenesin (Mucinex) 1,200 mg PO BID PRN PRN Reason: COUGH Last Admin: 04/27/18 11:55 Dose: 1,200 mg Hydrocortisone (Hytone) 1 applic TOPICAL BID PRN PRN; Protocol PRN Reason: pruritits Last Admin: 05/01/18 20:52 Dose: 1 applicatio Hydroxyzine Pamoate (Vistaril Pamoate Capsule) 25 mg PO TID PRN PRN PRN Reason: pruritits Last Admin: 05/02/18 12:03 Dose: 25 mg Sodium Chloride () 250 mls @ 15 mls/hr IV .[id number] PRN PRN Reason: SALINE FLUSH Insulin Human Lispro (Humalog Kwikpen (Bkc)) 24 unit SC SUPPER [facility] Last Admin: 05/01/18 17:00 Dose: 24 u Insulin Human Lispro (Humalog Kwikpen (Bkc)) 18 unit SC BREAKFAST [facility] Last Admin: 05/02/18 08:50 Dose: 18 units Insulin Human Lispro (Humalog Kwikpen (Bkc)) 24 unit SC LUNCH [facility] Last Admin: 05/02/18 11:47 Dose: 24 u Insulin Human Regular (Humulin R U-500 (Bkc)) 70 units SC BREAKFAST [facility] Last Admin: 05/02/18 08:51 Dose: 70 u Insulin Human Regular (Humulin R U-500 (Bkc)) 55 units SC QHS [facility] Last Admin: 05/01/18 20:53 Dose: 55 unit Loratadine (Claritin) 10 mg PO DAILY [facility] Last Admin: 05/02/18 08:57 Dose: 10 mg Magnesium Hydroxide (Milk Of Magnesia) 30 ml PO DAILY PRN PRN Reason: Constipation Metoprolol Succinate (Toprol Xl (Beta Jennifer)) 100 mg PO DAILY [facility] Last Admin: 05/02/18 08:57 Dose: 100 mg Nutritional Formula (Lactose Free) (Glucerna Shake) 120 ml PO 4X/DAY [facility] Last Admin: 05/02/18 08:58 Dose: 120 ml Ondansetron HCl (Zofran) 4 mg IV Q8H PRN PRN PRN Reason: NAUSEA Last Admin: 04/24/18 23:34 Dose: 4 mg Pantoprazole Sodium (Protonix) 20 mg PO BID [facility] Last Admin: 05/02/18 08:57 Dose: Not Given Prednisone () 30 mg PO DAILY@0800 [facility] Last Admin: 05/02/18 08:57 Dose: 30 mg Sodium Chloride () 5 - 15 ml IV UD PRN PRN Reason: SALINE FLUSH Last Admin: 05/01/18 06:43 Dose: 10 ml Sucralfate (Carafate) 1 gm PO 1HR_ACHS [facility] Last Admin: 05/02/18 09:58 Dose: Not Given Tramadol HCl (Ultram) 50 mg PO BID PRN PRN PRN Reason: PAIN Last Admin: 04/29/18 21:37 Dose: 50 mg Medical Necessity - Tobacco Use Smoking Status: Never smoker - not currently Tobacco Use: Non-smoker Assessment/Plan All Active Problems Influenzal pneumonia (Acute) Melena (Ruled-out) Severe sepsis (Acute) Acute respiratory failure with hypoxemia (Acute) Hypokalemia (Acute) Hematochezia (Acute) Abnormal LFTs (Acute) 1. Severe sepsis 2. Suspected pneumococcal pneumonia 3. Influenza A 4. Acute hypoxic respiratory failure 5. Acute drug rash likely secondary to cephalosporin 6. Acute lung injury Plan is for the patient to be discharged to facility today. Patient is completed her antibiotics at that would be discontinued moving forward. Patient to have her oxygen weaned as tolerated. Patient advised the risk of future drug reactions and advised to inform staff if she starts developing worsening rash or any concern for angioedema. Greater than 40 minutes spent on discharge today. Code Visit Inpatient E&M: [id number] Disch Hosp
--- NOTE | 2018-05-02 14:05 | CASEMGMT ---
NELLIE called [facility] and spoke with Michelle. She said patient is on her co-workers case load. She put SW on hold and then when she returned she said transport time needs to be arranged. NELLIE told her SW already set up transport for 4p as it is very difficult to get wc transport around here so SW scheduled it first thing this am. She said she will call SW back with a room number. NELLIE told her SW faxed orders and she said they will have to be faxed directly to [facility]. She will give SW that fax number when she calls back with the room number. Plan: d/c to [facility] on convalescent stay. [facility] transported patient via van. Orin EASON MSW
--- NOTE | 2018-05-02 14:32 | CASEMGMT ---
Received call from Michelle at [facility] and patient will be going to room 231. The phone number to call for report is [phone] and fax number is [phone]. NELLIE faxed orders. Completed a convalescent on [facility]. Transport was set up earlier in the day for 4p [employer] van with [facility]. NELLIE gave RN the number for report. RN, private secretary, patient, and charge machine operator notified of picking belt operator time. Plan: d/c to [facility] under skilled level of care on a convalescent stay. [facility] transported via [employer]. Orin EASON MSW
--- NOTE | 2018-05-02 14:51 | NURSING ---
report called to Kandy at [facility]
== END 2018-05-02 16:03 | disposition home or self-care (01) | DRG 871 ==
LOC: ED 10:16 → PCU 13:18
PROVIDERS: Internal Medicine; Internal Medicine Critical Care Medicine; Admitting Provider Internal Medicine; Emergency Provider Emergency Medicine; Family Provider Family Medicine Geriatric Medicine; PCP Family Medicine Geriatric Medicine
DX: A41.89 Other specified sepsis (principal); J10.01 Influenza due to other identified influenza virus with the same other identified influenza virus pneumonia; J96.01 Acute respiratory failure with hypoxia; J80 Acute respiratory distress syndrome; K92.1 Melena; E87.1 Hypo-osmolality and hyponatremia; R65.20 Severe sepsis without septic shock; E87.6 Hypokalemia; Z79.4 Long term (current) use of insulin; E11.65 Type 2 diabetes mellitus with hyperglycemia; I10 Essential (primary) hypertension; L27.0 Generalized skin eruption due to drugs and medicaments taken internally; T36.1X5A Adverse effect of cephalosporins and other beta-lactam antibiotics, initial encounter; E78.5 Hyperlipidemia, unspecified; Z87.891 Personal history of nicotine dependence; I35.0 Nonrheumatic aortic (valve) stenosis; R74.8 Abnormal levels of other serum enzymes
CPT/HCPCS: 36415; 36600; 71045; 71046; 71250; 80048; 80053; 80061; 81001; 82274; 82803; 82962; 82977; 83036; 83605; 83735; 83880; 84100; 84484; 85014; 85018; 85025; 85027; 85610; 85730; 87040; 87070; 87086; 87205; 87449; 87633; 87641; 93005; 93306; 94002; 94640; 97110; 97116; 97162; 97166; 97530; 97535; 97802; 99251; 99284; J7030; J7040; J7050; A4216; G0463; J2405

== ENCOUNTER → 2018-06-16 | Outpatient (CLI) | payer MEDICARE, BC, SELFPAY ==
[2018-04-22 14:26] VITALS: BMI 30.3
[2018-06-16 12:49] LABS: Absolute Lymphocyte Count 4.43 X10^3/ul (0.83-4.51); Absolute Neutrophil Count 6.5 X10^3/uL (2.0-7.7); Basophil# 0.12 X10^3/uL; Eosinophil# 0.22 X10^3/uL; Eosinophils% 1.8 % (0-5); Hematocrit 42.2 % (37-47); Hemoglobin 13.9 g/dl (12.0-15.0); Lymphocyte # 4.43 X10^3/ul (4.0); Lymphocyte % 36.3 % (19-41); Mean Corp Hgb Conc 32.9 g/gl (32-36); Mean Corpuscular Hgb 28.8 pg (27.0-32.0); Mean Corpuscular Volume 87.4 fL (81-99); Mean Platelet Vol. 10.4 fl (6.2-12.0); Monocyte# 0.91 X10^3/uL; Monocyte% 7.5 % (0-10); Neutrophil # 6.48 X10^3/uL (2.7-7.7); Platelet Count 243 K/mm3 (150-450); RBC Distribution Width CV 16.7 % (11.6-14.6); RBC Distribution Width SD 53.1 fl (35.1-43.9); Red Blood Count 4.83 M/mm3 (4.2-5.4); White Blood Count 12.2 K/mm3 (4.4-11.0)
[2018-06-16 12:51] LABS: POSITIVE COUNT NO; POSITIVE DIFFERENTIAL NO; POSITIVE MORPHOLOGY NO
[2018-06-16 13:29] LABS: ALB/GLOB Ratio 0.9 RATIO (0.9-2.4); AST(SGOT) 31 U/L (15-37); Alanine Aminotransfer ALT/SGPT 39 U/L (13-56); Albumin, Serum 3.8 g/dL (3.2-5.0); Alkaline Phosphatase 75 U/L (45-117); Anion Gap 10 (5-15); BUN 14 mg/dL (7-18); BUN/Creat Ratio 10.7 RATIO (10-20); Calcium,Total 9.8 mg/dL (8.5-10.1); Chloride 98 mmol/L (98-107); Creatinine, Serum 1.31 mg/dL (0.55-1.02); EST Glomerular Filtration Rate 42 mL/min (>60); Est Glom Filt Rate - Afr Amer 51 mL/min (>60); Globulin 4.2 g/dL (2.2-4.2); Glucose 420 mg/dL (74-106); Potassium 3.7 mmol/L (3.5-5.1); Sodium Level 132 mmol/L (136-145); Thyroid Stim Hormone (TSH) 0.82 uIU/mL (0.358-3.74)
[2018-06-16 14:20] LABS: Vitamin D,25 Hydroxy 22.8 ng/mL (29.95-100.01)
== END | disposition home or self-care (01) ==
LOC: POLAB3 11:47
PROVIDERS: Family Provider Family Medicine Geriatric Medicine; PCP Family Medicine Geriatric Medicine; Visit Provider Family Medicine Geriatric Medicine
DX: E11.9 Type 2 diabetes mellitus without complications (principal); E55.9 Vitamin D deficiency, unspecified; I10 Essential (primary) hypertension
CPT/HCPCS: 36415; 80053; 82306; 84443; 85025